=== PATIENT | male | born 1960 | race Caucasian/White ===

== ENCOUNTER 2017-12-23 09:30 | Emergency (ER) | payer OTHER ==
[2017-12-23 09:41] VITALS: TEMP 98.1
--- NOTE | 2017-12-23 10:36 | ED ---
General Adult HPI - General Source: patient, RN notes reviewed Mode of arrival: ambulatory Limitations: no limitations <Canelo Groves - Last Filed: 12/23/17 13:33> <Giovanny Anthony - Last Filed: 12/23/17 14:06> - General Chief complaint: Extremity Injury, Lower Stated complaint: rt leg injury Time Seen by Provider: 12/23/17 09:51 - History of Present Illness Initial comments: Patient 57-year-old male presented to the emergency room today with a chief complaint of an injury to the right ankle that occurred yesterday approximately 7 PM. Patient states that he was stepping down out of his truck when he missed second step and twisted his right foot and ankle underneath him. Patient states he has not been able to bear weight. He states he has pain with movements. He states he has been icing it all night. Patient denies any other injury or complaint. (Canelo Groves) - Related Data Home Medications Medication Instructions Recorded Confirmed Ibuprofen [Advil] 800 mg PO Q6HR PRN 12/23/17 12/23/17 Previous Rx's Medication Instructions Recorded Hydrocodone/Acetaminophen [[place] 1 each PO Q6HR PRN #12 tab 12/23/17 5-325] Allergies Allergy/AdvReac Type Severity Reaction Status Date / Time amoxicillin AdvReac Nausea & Verified 12/23/17 10:29 Vomiting & Diarrhea Review of Systems ROS Other: All systems not noted in ROS Statement are negative. <Canelo Groves - Last Filed: 12/23/17 13:33> ROS Other: All systems not noted in ROS Statement are negative. <Giovanny Anthony - Last Filed: 12/23/17 14:06> ROS Statement: Those systems with pertinent positive or pertinent negative responses have been documented in the HPI. Past Medical History Past Medical History: No Reported History Additional Past Medical History / Comment(s): "undiagnosed divirticulitis" in the past History of Any Multi-Drug Resistant Organisms: None Reported Past Surgical History: Hernia Repair Past Psychological History: No Psychological Hx Reported Smoking Status: Former smoker Past Alcohol Use History: Occasional Past Drug Use History: Marijuana <Canelo Groves - Last Filed: 12/23/17 13:33> General Exam Limitations: no limitations <Canelo Grovse - Last Filed: 12/23/17 13:33> <Lodge,Giovanny - Last Filed: 12/23/17 14:06> - General Exam Comments Initial Comments: General: The patient is awake and alert, in no distress, and does not appear acutely ill. Neck: The neck is supple, there is no tenderness or JVD. Musculoskeletal: The patient does have a normal appearance of her right ankle. Faint pedal pulses. Doppler is able to apple picker pedal pulses and posterior tibialis. Sensations are intact. Tender over the right ankle both lateral and medial malleolus. Mild tenderness to the fibular head. Neurological: A&O x 3. CN II-XII intact, There are no obvious motor or sensory deficits. Coordination appears grossly intact. Speech is normal. Skin: Skin is warm and dry and no rashes or lesions are noted. Psychiatric: Normal mood and affect. (Canelo Groves) Vital Signs 12/23/17 12/23/17 12/23/17 09:38 12:33 12:39 Temperature 98.1 F Pulse Rate 69 62 61 Respiratory 18 17 17 Rate Blood Pressure 153/100 139/89 142/96 O2 Sat by Pulse 98 100 100 Oximetry 12/23/17 12/23/17 12/23/17 12:44 12:50 12:55 Temperature Pulse Rate 64 100 76 Respiratory 17 72 H 17 Rate Blood Pressure 152/93 152/98 147/87 O2 Sat by Pulse 100 100 100 Oximetry 12/23/17 12/23/17 12/23/17 13:00 13:07 13:10 Temperature Pulse Rate 66 60 62 Respiratory 17 17 17 Rate Blood Pressure 140/87 144/90 142/90 O2 Sat by Pulse 100 100 100 Oximetry Procedures - Orthopedic Fracture Reduction Fracture #1 Consent Obtained: written consent Time Out Performed: Yes Fracture Reduction Location: tibia, fibula Analgesia: procedural sedation Technique: direct manipulation Post Reduction X-rays Demonstrate: acceptable reduction Post-Reduction Neuro Exam: intact Post-Reduction Vascular Exam: intact Splint Applied: Yes Patient Tolerated Procedure: well - Procedural Sedation Indications: fracture/dislocation reduction ASA Class: II Mallampati Airway Score: 2 Time of Last PO Intake: 00:00 (Midnight last night) Preparation: cashier host/hostess applied, pulse oximeter, capnometry used, supplemental O2 applied, suction/airway equipment at bedside, IV secured IV Propofol Dose (mgs): 90 Complications: none Patient Tolerated Procedure: well <Giovanny Anthony - Last Filed: 12/23/17 14:06> Medical Decision Making - Lab Data Result diagrams: 12/23/17 11:10 12/23/17 11:10 <Canelo Groves - Last Filed: 12/23/17 13:33> - Lab Data Result diagrams: 12/23/17 11:10 12/23/17 11:10 <Giovanny Anthony - Last Filed: 12/23/17 14:06> - Medical Decision Making X-ray did show a distal fibular fracture with ankle dislocation. Patient was conscious sedated here in the emergency room. Post reduction films show good reduction. Case was discussed with orthopedic doctor concrete boom pump operator Dr. Gregory who recommends following up in the office on Tuesday. Patient will be given crutches and stay nonweightbearing advised ice elevate. Patient did sign a opiate start talking form. (Canelo Groves) - Lab Data Lab Results 12/23/17 12/23/17 12/23/17 Range/Units 11:10 11:10 11:10 WBC 8.6 (3.8-10.6) k/uL RBC 5.58 (4.30-5.90) m/uL Hgb 17.5 (13.0-17.5) gm/dL Hct 52.3 (39.0-53.0) % MCV 93.8 (80.0-100.0) fL MCH 31.3 (25.0-35.0) pg MCHC 33.4 (31.0-37.0) g/dL RDW 12.9 (11.5-15.5) % Plt Count 357 (150-450) k/uL Neutrophils % 64 % Lymphocytes % 27 % Monocytes % 5 % Eosinophils % 1 % Basophils % 0 % Neutrophils # 5.5 (1.3-7.7) k/uL Lymphocytes # 2.4 (1.0-4.8) k/uL Monocytes # 0.5 (0-1.0) k/uL Eosinophils # 0.1 (0-0.7) k/uL Basophils # 0.0 (0-0.2) k/uL PT 10.2 (9.0-12.0) sec INR 1.0 (<1.2) APTT 22.7 (22.0-30.0) sec Sodium 139 (137-145) mmol/L Potassium 5.0 (3.5-5.1) mmol/L Chloride 104 (98-107) mmol/L Carbon Dioxide 25 (22-30) mmol/L Anion Gap 10 mmol/L BUN 17 (9-20) mg/dL Creatinine 0.90 (0.66-1.25) mg/dL Est GFR (CKD-EPI)AfAm >90 (>60 ml/min/1.73 sqM) Est GFR (CKD-EPI)NonAf >90 (>60 ml/min/1.73 sqM) Glucose 115 H (74-99) mg/dL Calcium 10.0 (8.4-10.2) mg/dL Disposition Is patient prescribed a controlled substance at d/c from ED?: Yes When asked, does pt state using other controlled substances?: No If prescribed controlled substance>3 days was MAPS reviewed?: Prescribed <3 Days If Rx opioid, was Start Talking consent form obtained?: Yes Time of Disposition: 13:35 <Canelo Groves - Last Filed: 12/23/17 13:33> <Giovanny Anthony - Last Filed: 12/23/17 14:06> Clinical Impression: Ankle fracture Disposition: HOME SELF-CARE Condition: Good Instructions: Ankle Fracture (ED) Additional Instructions: Please leave splint in place until follow-up with orthopedics on Tuesday as discussed. Please use crutches with nonweightbearing. Pain medication as prescribed. Please continue to ice elevate the affected areas 4 times a day for 20 minutes at a time. Please return to emergency room if the symptoms increase or worsen or for any other concerns. Prescriptions: Hydrocodone/Acetaminophen [[place] 5-325] 1 each PO Q6HR PRN #12 tab PRN Reason: Pain Referrals: Demarcus Medrano MD [Primary Care Provider] - 1-2 days Max Gregory MD [STAFF PHYSICIAN] - 1-2 days Addendum entered and electronically signed by Canelo Groves PA-C 12/23/17 13: 40: EKG performed that 1111: Shows normal sinus rhythm at 71 bpm. DE interval 152. QRS 88. QT/QTc is 406/441. No acute ST changes.
--- NOTE | 2017-12-23 10:38 | XR ---
EXAMINATION TYPE: XR ankle complete RT, XR tibia fibula RT, XR foot limited RT DATE OF EXAM: 12/23/2017 COMPARISON: NONE HISTORY: Pain TECHNIQUE: Frontal, lateral and oblique images of the right ankle are obtained. 2 views of the right foot are submitted as well as AP and lateral views of the right tibia and fibula. FINDINGS: Displaced and angulated fracture of the distal fibula with displacement of 11.5 mm. Suspect fracture anterior malleolus. Complete disruption of the ankle mortise with the distal tibia being di slocated ventrally. Small chip component noted adjacent to the talar dome may arise from the tibia or talus. IMPRESSION: 1. Complete disruption of the ankle mortise with ventral dislocation of the distal tibia relative to the talar dome. 2. Angulated and displaced distal fibular fracture. Suspect small chip fractures arising from the ant erior malleolus and possibly the dome of the talus.
[2017-12-23] MEDS ORDERED: DIAZEPAM 5 MG TAB PO STA (10:48)
[2017-12-23] MEDS ORDERED: HYDROcodone/APAP 5-325MG 1 EACH TAB PO STA (10:48)
[2017-12-23 11:31] LABS: Basophils % (A) 0 %; Eosinophils # (A) 0.1 k/uL (0-0.7); Eosinophils % (A) 1 %; HCT 52.3 % (39.0-53.0); HGB 17.5 gm/dL (13.0-17.5); Lymphocytes # (A) 2.4 k/uL (1.0-4.8); Lymphocytes % (A) 27 %; MCH 31.3 pg (25.0-35.0); MCHC 33.4 g/dL (31.0-37.0); MCV 93.8 fL (80.0-100.0); Mean Platelet Volume 6.6; Monocytes # (A) 0.5 k/uL (0-1.0); Monocytes % (A) 5 %; Neutrophils # (A) 5.5 k/uL (1.3-7.7); Neutrophils % (A) 64 %; Platelet Count 357 k/uL (150-450); RBC 5.58 m/uL (4.30-5.90); RDW 12.9 % (11.5-15.5); WBC 8.6 k/uL (3.8-10.6)
[2017-12-23 11:38] LABS: Partial Thromboplastin Time 22.7 sec (22.0-30.0); Prothrombin Time 10.2 sec (9.0-12.0)
[2017-12-23 11:42] LABS: Anion Gap 10 mmol/L; Blood Urea Nitrogen 17 mg/dL (9-20); Carbon Dioxide 25 mmol/L (22-30); Chloride 104 mmol/L (98-107); Glucose 115 mg/dL (74-99); Sodium 139 mmol/L (137-145)
[2017-12-23] MEDS: PROPOFOL 10 MG/ML 20 ML VIAL IV STA ×2 (12:22→12:50)
[2017-12-23] MEDS ORDERED: SODIUM CHLORIDE 0.9% 1,000 ML IV SCH (12:45)
--- NOTE | 2017-12-23 13:25 | XR ---
EXAMINATION TYPE: XR ankle limited RT DATE OF EXAM: 12/23/2017 COMPARISON: Earlier today HISTORY: 57-year-old male with pain, post reduction TECHNIQUE: 2 view FINDINGS: Interval improved alignment of the patient's oblique distal fibular fracture. Possible 1 cm bone frag ment projecting below the lateral malleolus versus external artifact. Attention on follow-up. Persist ent medial clear space widening. Overlying fiberglass cast. IMPRESSION: Unstable bimalleolar equivalent ankle fracture with interval reduction and improved alignment. Persis tent medial clear space widening compatible with disruption of the deltoid ligament. Either a 1 cm bone fragment versus external artifact projecting below the lateral malleolus. Attentio n on follow-up.
[2017-12-23 14:58] VITALS: BP 146/101; PULSE 64; RESP 18
--- NOTE | 2017-12-30 00:58 | CDI ---
Documentation Clarification OP Dear Canelo Groves/Giovanny Liu DO Please do addendum to ED report for Procedure Start and Stop time so that we can determine length of sedation for charging. Thank you, Sayda Bell/Devika Meza-[employer] Die Sinker Apprentice If you have any questions, please contact [employer] at [phone] [facility]
== END 2017-12-23 14:57 | disposition home or self-care (01) ==
LOC: EC 09:30
DX: S82.841A Displaced bimalleolar fracture of right lower leg, initial encounter for closed fracture (principal); Z88.0 Allergy status to penicillin; Z87.891 Personal history of nicotine dependence; X50.1XXA Overexertion from prolonged static or awkward postures, initial encounter; S82.831A Other fracture of upper and lower end of right fibula, initial encounter for closed fracture
CPT/HCPCS: 99284; 96360; 96361; 27752; 36415; 93005; 80048; 85025; 85610; 85730; 73590; 73600; 73610; 73620; J2704

== ENCOUNTER 2017-12-29 10:17 | Day surgery (SDC) | payer OTHER ==
[2017-12-28 12:21] VITALS: BMI 27.4
[~2017-12-29 10:17] MED LIST: ACETAMINOPHEN TAB 500 MG TAB PO ONE; DEXAMETHASONE SOD PHOSPHATE 10 MG/ML 1 ML VIAL IV ONE; LACTATED RINGERS 1,000 ML IV SCH; MIDAZOLAM 2 MG/2 ML VIAL IV PRN; ONDANSETRON 4 MG/2 ML VIAL IVP ONE; SCOPOLAMINE 1.5MG/72HR PATCH TRANSDERM ONE; ceFAZolin IN SWFI 2 GM/20 ML SYRINGE IVP ONE; fentaNYL (PF) 50 MCG/ML 2 ML AMP IV PRN
[2017-12-29] MEDS ORDERED: LIDOCAINE 1% 20 ML VIAL (10MG/ML) FOR IV START INTRADERMA ONE (11:07)
[2017-12-29] MEDS ORDERED: fentaNYL (PF) 50 MCG/ML 2 ML AMP ONE (11:54)
[2017-12-29] MEDS ORDERED: PHENYLEPHRINE-0.9% NACL SYG 1 MG/10 ML SYRINGE ONE (11:54)
[2017-12-29] MEDS ORDERED: LACTATED RINGERS 1,000 ML IV ONE (11:54)
[2017-12-29] MEDS ORDERED: PROPOFOL 10 MG/ML 20 ML VIAL IV ONE (11:54)
[2017-12-29] MEDS ORDERED: SUCCINYLCHOLINE CHLORIDE 100 MG/5 ML SYR IV ONE (11:54)
[2017-12-29] MEDS ORDERED: LIDOCAINE 1% INJ 10MG/ML (20 ML MDV) ONE (11:54)
[2017-12-29] MEDS ORDERED: ceFAZolin 1,000 MG in SODIUM CHLORIDE 0.9% 1,000 ML IRRIGATION ONE (12:26)
[2017-12-29] MEDS: MEPERIDINE 50 MG/ML SYRINGE IVP ONE ×2 (13:31→13:48)
[2017-12-29 13:37] VITALS: TEMP 97.4
[2017-12-29 13:39] VITALS: RESP 16
[2017-12-29] MEDS ORDERED: HYDROcodone/APAP 5-325MG 1 EACH TAB PO ONE (15:00)
[2017-12-29 15:02] VITALS: BP 135/79; PULSE 74
--- NOTE | 2017-12-29 15:10 | FL ---
Fluoroscopy HISTORY: Ankle fracture 39 seconds fluoroscopy time supplied to the referring clinician. 3 intraoperative C-arm images docum ent the procedure. See dictated report from orthopedic surgery.
--- NOTE | 2017-12-29 15:11 | XR ---
Limited right ankle HISTORY: Fracture 3 intraoperative C-arm images document the procedure.
--- NOTE | 2017-12-29 15:13 | P.ONQ ---
Anesthesiology Proc Note - PNB - Peripheral Nerve Block Performed Right Popliteal Single Procedure Start Time: 14:00 Procedure Stop Time: 14:10 Indication: Acute Post-Operative Pain Sedation Type: Awake Preparation: Sterile Prep Position: Supine Needle Types: Other (see comment) (pujunk) Needle Size: 50mm (2"), 100mm (4") Needle Gauge: 21 Technique: Ultrasound Injectate: Other (see comment) (bupivacaine 0.25 % 25 ml) Blood Aspirated: No Pain Paresthesia on Injection Noted: No Resistance on Injection: Normal Events: Uneventful and Well Tolerated
--- NOTE | 2017-12-29 18:39 | OP ---
OPERATIVE REPORT DATE OF PROCEDURE: 12/29/2017 PREOPERATIVE DIAGNOSIS: Right displaced lateral malleolus fracture with syndesmotic disruption. POSTOPERATIVE DIAGNOSIS: Right displaced lateral malleolus fracture with syndesmotic disruption. PROCEDURES: 1. Open reduction internal fixation, right lateral malleolus fracture. 2. Right ankle syndesmotic reduction and fixation. SURGEON: Max Gregory MD CDA TEACHER: Jim Florian PA-C ANESTHESIA: General endotracheal. ESTIMATED BLOOD LOSS: 25 mL. TOURNIQUET: 30 minutes at 250 mmHg. DRAINS: None. COMPLICATIONS: None apparent. DISPOSITION: Post-Anesthesia Care Unit. INDICATIONS: Guero is a pleasant 57-year-old male who injured his right ankle 5 to 7 days ago getting out of his truck. He initially presented to [facility]. He had a displaced lateral malleolus fracture with a syndesmotic disruption. The fracture was reduced by the emergency department and appropriately splinted and he was given followup in my office. I saw him in the office approximately 3 days ago. He only had a minimal amount of swelling. The fracture had been reduced very nicely by the emergency department. The injury films were reviewed and he did have a displaced lateral malleolus fracture with syndesmotic disruption. Recommendation was for open reduction internal fixation with possible syndesmotic fixation of his lateral malleolus fracture. The risks of the procedure were discussed with him in detail. These risks include but are not limited to risk of infection, nerve damage, bleeding, pain and a risk of deep vein thrombosis which could lead to fatal pulmonary embolism. Further risks include lack of healing of the fracture, hardware irritation which could necessitate removal of the hardware and deep infection. All of his questions with regards to the risks were answered to his satisfaction. Appropriate informed consent was obtained. DESCRIPTION OF THE PROCEDURE: The patient was identified in the preoperative holding area. Surgical site was marked by both the patient and myself. He was given 2 grams of Ancef IV for prophylactic purposes. He was then transported to the operative suite, where he was placed supine on the operating room table. General anesthetic was administered and dosed per the anesthesia department without apparent complication. A tourniquet was then placed high on the right upper thigh and well padded in preparation for surgery. A bump was placed under his right hip to aid in exposure of the lateral malleolus. The patient's right lower extremity was then prepped and draped in the usual sterile fashion. Standard surgical pause was undertaken to ensure that we were operating on the correct site and that appropriate preoperative antibiotics had been given. All staff in the room were in agreement and we proceeded. The distal fibula was outlined with a surgical pen. A planned 10 to 12 cm incision extending from the distal fibula proximally along the posterior third of the distal fibula was then marked with a surgical pen. The leg was then exsanguinated with an Esmarch dressing. The tourniquet was inflated to 250 mmHg. The incision was then made with a 15 blade scalpel. Dissection was carried down sharply to the lateral cortex of the fibula. Great care was taken to minimize the periosteal stripping. The fracture was readily identified. It was a very clean, short, oblique fracture. It was easily reduced with a reduction forcep. I then placed a 2.7 mm bicortical nonlocking screw perpendicular to the fracture from anterior to posterior. This was an interfragmentary compression screw. This screw had excellent purchase and reduced and compressed the fracture very nicely. I then placed a lateral neutralization plate. A Synthes 7-hole 1/3 tubular plate was chosen. Fluoroscopy was utilized to ensure that the length of the plate was appropriate. The plate was then placed onto the lateral fibula. Proximal to the fracture were three 3.5 mm bicortical nonlocking screws. The two distal screws were 4.0 mm cancellous bicortical screws. I then tested the syndesmosis. The syndesmosis widened with external rotation stress. I then made the decision to proceed with syndesmotic fixation. The ankle was then held in reduction with internal rotation. I then drilled all through the 2 cortices of the fibula and the 2 cortices of the tibia to place a 4.5 mm fully threaded screw. This was ea 52 mm screw. It caught all 4 cortices. It was placed with the syndesmosis reduced. I then stressed the ankle. The syndesmosis was stable. The medial clear space did not open. At this point in time, no further work was deemed necessary. The tourniquet was deflated. The wound was thoroughly irrigated with sterile saline solution with antibiotic added. The deep tissue was closed with 0 Vicryl interrupted suture to form a nice deep layer over the plate. The subcutaneous tissue was closed with 2-0 Vicryl interrupted suture and the skin was closed with stainless steel speedy. Sterile compressive dressing was then applied. The patient was then placed into a very well- padded short-leg posterior molded splint with side stirrups. All sponge and needle counts were deemed correct prior to closure. The patient tolerated the procedure without apparent complication. He was transferred to the recovery room in stable condition. ADRIANO / GAYLA: [id number] /
== END 2017-12-29 16:12 | disposition home or self-care (01) ==
LOC: OR 10:17
PROVIDERS: ATTEND Orthopaedic Surgery Sports Medicine
DX: S82.61XA Displaced fracture of lateral malleolus of right fibula, initial encounter for closed fracture (principal); W18.49XA Other slipping, tripping and stumbling without falling, initial encounter; Z87.891 Personal history of nicotine dependence; Z88.0 Allergy status to penicillin; Z79.891 Long term (current) use of opiate analgesic
CPT/HCPCS: 73600; 27792; C1713; J1100; J2175; J2405; J0690 ×2

== ENCOUNTER 2023-06-03 22:20 | Inpatient (IN) | payer OTHER ==
[2023-06-03] MEDS: SODIUM CHLORIDE 0.9% 1,000 ML IV STA (23:20)
[2023-06-03] MEDS: diphenhydrAMINE 50 MG/ML 1 ML VIAL IVP STA (23:21)
[2023-06-03] MEDS: METOCLOPRAMIDE 5 MG/ML 2 ML VIAL IVP STA (23:21)
[2023-06-03 23:45] LABS: ALT 18 U/L (4-49); AST 25 U/L (17-59); African American GFR (CKD) >90 (>60 ml/min/1.73 sqM); Alkaline Phosphatase 72 U/L (38-126); Anion Gap 13 mmol/L; Blood Urea Nitrogen 21 mg/dL (9-20); Calcium 9.6 mg/dL (8.4-10.2); Carbon Dioxide 21 mmol/L (22-30); Chloride 101 mmol/L (98-107); Glucose 172 mg/dL (74-99); Lipase 55 U/L (23-300); Non-African American GFR(CKD) >90 (>60 ml/min/1.73 sqM); Sodium 135 mmol/L (137-145); Total Protein 6.6 g/dL (6.3-8.2)
[2023-06-03 23:58] LABS: Basophils % (A) 0 %; Eosinophils % (A) 0 %; HCT 48.5 % (39.0-53.0); HGB 17.2 gm/dL (13.0-17.5); Lymphocytes # (A) 1.5 k/uL (1.0-4.8); Lymphocytes % (A) 13 %; MCH 32.7 pg (25.0-35.0); MCHC 35.4 g/dL (31.0-37.0); MCV 92.6 fL (80.0-100.0); Mean Platelet Volume 8.7; Monocytes # (A) 0.5 k/uL (0-1.0); Monocytes % (A) 4 %; Neutrophils # (A) 9.7 k/uL (1.3-7.7); Neutrophils % (A) 82 %; Platelet Count 455 k/uL (150-450); RBC 5.24 m/uL (4.30-5.90); RDW 12.8 % (11.5-15.5); WBC 11.8 k/uL (3.8-10.6)
--- NOTE | 2023-06-04 00:21 | CT ---
EXAM: CT Abdomen and Pelvis With Intravenous Contrast CLINICAL HISTORY: ITS.REASON CT Reason: abdominal pain TECHNIQUE: Axial computed tomography images of the abdomen and pelvis with intravenous contrast. CTDI is 15.3 mGy and DLP is 932 mGy-cm. This CT exam was performed using one or more of the following dose reduction techniques: automated exposure control, adjustment of the mA and/or kV according to patient size, and/or use of iterative reconstruction technique. COMPARISON: No relevant prior studies available. FINDINGS: Lung bases: Unremarkable. No mass. No consolidation. ABDOMEN: Liver: Unremarkable. No mass. Gallbladder and bile ducts: Unremarkable. No calcified stones. No ductal dilation. Pancreas: Unremarkable. No mass. No ductal dilation. Spleen: Unremarkable. No splenomegaly. Adrenals: Unremarkable. No mass. Kidneys and ureters: Unremarkable. No solid mass. No hydronephrosis. Stomach and bowel: There is a 6.8 x 2.8 cm mass within the distal sigmoid colon. Marked distention of the colon proximal to this mass. PELVIS: Appendix: No findings to suggest acute appendicitis. Bladder: Unremarkable. No mass. Reproductive: Unremarkable as visualized. ABDOMEN and PELVIS: Intraperitoneal space: Unremarkable. No free air. No significant fluid collection. Bones/joints: No acute fracture. No dislocation. Soft tissues: Unremarkable. Vasculature: Unremarkable. No abdominal aortic aneurysm. Lymph nodes: Unremarkable. No enlarged lymph nodes. IMPRESSION: 6.8 cm colonic mass consistent with colonic neoplasm.
--- NOTE | 2023-06-04 01:32 | ED ---
Abdominal Pain HPI - General Chief Complaint: Abdominal Pain Stated Complaint: Constipation Time Seen by Provider: 06/03/23 22:30 Source: patient, family Mode of arrival: ambulatory Limitations: no limitations - History of Present Illness Initial Comments: 62-year-old male presents to the emergency department for abdominal pain, nausea and vomiting. States that he has not had a bowel movement in 2 weeks. 1 week ago the patient went to [facility]. He was diagnosed with constipation and given an enema. He was also instructed to do enemas at home. States that he was unable to move his bowels and therefore returned for evalua tion yesterday. He had a CAT scan performed. Rectal disimpaction was attempted. Patient was sent home once again with an enema. States that he has been able to pass 2 very small round nima but no other stool. He began vomiting this morning and states he has been unable to hold down anything. Has not had anything to eat or drink in 2 days. He denies fevers. He has never had a colonoscopy. He denies urinary complaints to include dysuria, hematuria or difficulty voiding. No fevers. No other alleviating, precipitating or modifying factors - Related Data Previous Rx's Medication Instructions Recorded Hydrocodone/Acetaminophen [[place] 1 each PO Q6HR PRN #12 tab 12/23/17 5-325] Aspirin 325 mg PO BID #60 tab 12/29/17 Docusate [Colace] 100 mg PO BID #60 capsule 12/29/17 Allergies Allergy/AdvReac Type Severity Reaction Status Date / Time amoxicillin AdvReac Nausea & Verified 06/03/23 22:25 Vomiting & Diarrhea Review of Systems ROS Statement: Those systems with pertinent positive or pertinent negative responses have been documented in the HPI. ROS Other: All systems not noted in ROS Statement are negative. Past Medical History Past Medical History: Musculoskeletal Disorder, Osteoarthritis (OA) Additional Past Medical History / Comment(s): "undiagnosed diverticulitis" in the past, [place] Schlatter knee, fell & fx. right ankle last Tuesday, in soft cast per pt. History of Any Multi-Drug Resistant Organisms: None Reported Past Surgical History: Hernia Repair Past Anesthesia/Blood Transfusion Reactions: No Reported Reaction Past Psychological History: No Psychological Hx Reported Past Alcohol Use History: Occasional Past Drug Use History: Marijuana - Past Family History Mother Family Medical History: Cancer Additional Family Medical History / Comment(s): leukemia General Exam Limitations: no limitations General appearance: alert, in no apparent distress Head exam: Present: atraumatic, normocephalic, normal inspection Eye exam: Present: normal appearance, PERRL, EOMI. Absent: scleral icterus, conjunctival injection, periorbital swelling ENT exam: Present: normal exam, mucous membranes moist Neck exam: Present: normal inspection. Absent: tenderness, meningismus, lymphadenopathy Respiratory exam: Present: normal lung sounds bilaterally. Absent: respiratory distress, wheezes, rales, rhonchi, stridor Cardiovascular Exam: Present: regular rate, normal rhythm, normal heart sounds. Absent: systolic murmur, diastolic murmur, rubs, gallop, clicks GI/Abdominal exam: Present: soft, distended, tenderness (Generalized), normal bowel sounds. Absent: guarding, rebound, rigid Extremities exam: Present: normal inspection, full ROM, normal capillary refill. Absent: tenderness, pedal edema, joint swelling, calf tenderness Back exam: Present: normal inspection Neurological exam: Present: alert, oriented X3, CN II-XII intact Psychiatric exam: Present: normal affect, normal mood Skin exam: Present: warm, dry, intact, normal color. Absent: rash Course Vital Signs 06/03/23 06/04/23 06/04/23 22:21 01:25 03:47 Temperature 98.7 F Pulse Rate 112 H 100 98 Respiratory 18 18 18 Rate Blood Pressure 155/109 156/99 152/97 O2 Sat by Pulse 97 95 95 Oximetry Medical Decision Making - Medical Decision Making Was pt. sent in by a medical professional or institution (, PA, CROSS TIE MAKER, urgent care, hospital, or halfway...) When possible be specific @ -No Did you speak to anyone other than the patient for history (EMS, parent, family, police, friend...)? What history was obtained from this source @ -I spoke with the patient's friend in regards to his symptoms Did you review nursing and triage notes (agree or disagree)? Why? @ -I reviewed and agree with nursing and triage notes Were old charts reviewed (outside hosp., previous admission, EMS record, old EKG, old radiological studies, urgent care reports/EKG's, halfway records)? Report findings @ -No old charts were reviewed Differential Diagnosis (chest pain, altered mental status, abdominal pain women, abdominal pain men, vaginal bleeding, weakness, fever, dyspnea, syncope, headache, dizziness, GI bleed, back pain, seizure, CVA, palpatations, mental health, musculoskeletal)? @ -Differential Abdominal Pain Men: Appendicitis, cholecystitis, diverticulosis, ischemic bowel, pancreatitis, hepatitis, UTI, gastroenteritis, AAA, incarcerated hernia, bowel obstruction, constipation, inflammatory bowel, hepatitis, peptic ulcer disease, splenic infarction, perforated viscus, testicular torsion, this is not meant to be an all-inclusive list EKG interpreted by me (3pts min.). @ -Not done X-rays interpreted by me (1pt min.). @ -None done CT interpreted by me (1pt min.). @ -Yes and demonstrates large sigmoid mass U/S interpreted by me (1pt. min.). @ -None done What testing was considered but not performed or refused? (CT, X-rays, U/S, labs)? Why? @ -None What meds were considered but not given or refused? Why? @ -None Did you discuss the management of the patient with other professionals (professionals i.e. , PA, CROSS TIE MAKER, lab, RT, psych nurse, secondary social studies teacher, botany teacher, teacher, aoc director combat operations officer, pillowcase maker)? Give summary @ -Spoke with Dr. Noe. Requested medicine admit with surgery to consult Was smoking cessation discussed for >3mins.? @ -No Was critical care preformed (if so, how long)? @ -No Were there social determinants of health that impacted care today? How? (Homelessness, low income, unemployed, alcoholism, drug addiction, transportation, low edu. Level, literacy, decrease access to med. care, prison, rehab)? @ -No Was there de-escalation of care discussed even if they declined (Discuss DNR or withdrawal of care, Hospice)? DNR status @ -No What co-morbidities impacted this encounter? (DM, HTN, Smoking, COPD, CAD, Cancer, CVA, ARF, Chemo, Hep., AIDS, mental health diagnosis, sleep apnea, morbid obesity)? @ -None Was patient admitted / discharged? Hospital course, mention meds given and route, prescriptions, significant lab abnormalities, going to OR and other pertinent info. @ -Admitted. Upon arrival patient was placed into room 21. Thorough history and physical exam was performed. Patient is vomiting fecal material. Patient did have a CT done yesterday however I did recommend repeating this as he has had new onset of vomiting. Patient was agreeable to the scan. IV was established. Laboratory studies are conducted. Patient sent for CT which demonstrates a large sigmoid mass with obstruction. Results are discussed with the patient. At this time due to intractable nausea vomiting of fecal material I did place an NG tube. We did receive approximately 100 cc of brown stool in t he canister. Spoke with Dr. Noe who recommended medicine admission with surgery to consult. Spoke with Dr. Cabral who agreed to admit the patient. Patient remains n.p.o. and was taken to the floor in stable condition Undiagnosed new problem with uncertain prognosis? @ -Yes Drug Therapy requiring intensive monitoring for toxicity (Heparin, Nitro, Insulin, Cardizem)? @ -No Were any procedures done? @ -NG tube placement Diagnosis/symptom? @ -Intractable nausea and vomiting, acute abdominal pain, constipation, sigmoid mass with obstruction Acute, or Chronic, or Acute on Chronic? @ -Acute Uncomplicated (without systemic symptoms) or Complicated (systemic symptoms)? @ -Complicated Side effects of treatment? @ -No Exacerbation, Progression, or Severe Exacerbation? @ -No Poses a threat to life or bodily function? How? (Chest pain, USA, VA, pneumonia, PE, COPD, DKA, ARF, appy, cholecystitis, CVA, Diverticulitis, Homicidal, Suicidal, threat to staff... and all critical care pts) @ -Yes this condition could be life-threatening - Lab Data Result diagrams: 06/03/23 23:10 06/03/23 23:10 Lab Results 06/03/23 06/03/23 06/03/23 Range/Units 23:10 23:10 23:10 WBC 11.8 H (3.8-10.6) k/uL RBC 5.24 (4.30-5.90) m/uL Hgb 17.2 (13.0-17.5) gm/dL Hct 48.5 (39.0-53.0) % MCV 92.6 (80.0-100.0) fL MCH 32.7 (25.0-35.0) pg MCHC 35.4 (31.0-37.0) g/dL RDW 12.8 (11.5-15.5) % Plt Count 455 H (150-450) k/uL MPV 8.7 Neutrophils % 82 % Lymphocytes % 13 % Monocytes % 4 % Eosinophils % 0 % Basophils % 0 % Neutrophils # 9.7 H (1.3-7.7) k/uL Lymphocytes # 1.5 (1.0-4.8) k/uL Monocytes # 0.5 (0-1.0) k/uL Eosinophils # 0.0 (0-0.7) k/uL Basophils # 0.0 (0-0.2) k/uL Sodium 135 L (137-145) mmol/L Potassium 4.0 (3.5-5.1) mmol/L Chloride 101 (98-107) mmol/L Carbon Dioxide 21 L (22-30) mmol/L Anion Gap 13 mmol/L BUN 21 H (9-20) mg/dL Creatinine 0.86 (0.66-1.25) mg/dL Est GFR (CKD-EPI)AfAm >90 (>60 ml/min/1.73 sqM) Est GFR (CKD-EPI)NonAf >90 (>60 ml/min/1.73 sqM) Glucose 172 H (74-99) mg/dL Lactic Ac Sepsis Rflx Plasma Lactic Acid Dima 4.3 H* (0.7-2.0) mmol/L Calcium 9.6 (8.4-10.2) mg/dL Total Bilirubin 1.0 (0.2-1.3) mg/dL AST 25 (17-59) U/L ALT 18 (4-49) U/L Alkaline Phosphatase 72 (38-126) U/L Total Protein 6.6 (6.3-8.2) g/dL Albumin 4.0 (3.5-5.0) g/dL Lipase 55 (23-300) U/L 06/04/23 Range/Units 00:06 WBC (3.8-10.6) k/uL RBC (4.30-5.90) m/uL Hgb (13.0-17.5) gm/dL Hct (39.0-53.0) % MCV (80.0-100.0) fL MCH (25.0-35.0) pg MCHC (31.0-37.0) g/dL RDW (11.5-15.5) % Plt Count (150-450) k/uL MPV Neutrophils % % Lymphocytes % % Monocytes % % Eosinophils % % Basophils % % Neutrophils # (1.3-7.7) k/uL Lymphocytes # (1.0-4.8) k/uL Monocytes # (0-1.0) k/uL Eosinophils # (0-0.7) k/uL Basophils # (0-0.2) k/uL Sodium (137-145) mmol/L Potassium (3.5-5.1) mmol/L Chloride (98-107) mmol/L Carbon Dioxide (22-30) mmol/L Anion Gap mmol/L BUN (9-20) mg/dL Creatinine (0.66-1.25) mg/dL Est GFR (CKD-EPI)AfAm (>60 ml/min/1.73 sqM) Est GFR (CKD-EPI)NonAf (>60 ml/min/1.73 sqM) Glucose (74-99) mg/dL Lactic Ac Sepsis Rflx Y Plasma Lactic Acid Dima (0.7-2.0) mmol/L Calcium (8.4-10.2) mg/dL Total Bilirubin (0.2-1.3) mg/dL AST (17-59) U/L ALT (4-49) U/L Alkaline Phosphatase (38-126) U/L Total Protein (6.3-8.2) g/dL Albumin (3.5-5.0) g/dL Lipase (23-300) U/L Disposition Clinical Impression: Vomiting feces, Colonic mass, Large bowel obstruction, Tachycardia, Lactic acidosis Disposition: ADMITTED IP TO THIS [facility] Condition: Serious Is patient prescribed a controlled substance at d/c from ED?: No Time of Disposition: 01:31 Decision to Admit Reason: Admit from EC Decision Date: 06/04/23 Decision Time: 01:32
[2023-06-04] MEDS ORDERED: NALOXONE 0.4 MG/ML 1 ML VIAL IV PRN (01:38)
[2023-06-04] MEDS: LIDOCAINE 2% URO-JET JELLY 5 ML KIT URETHRAL ONE (01:46)
[2023-06-04] MEDS: SODIUM CHLORIDE 0.9% 1,000 ML IV SCH (01:46)
[2023-06-04] MEDS: LORazepam 2 MG/ML INJ IV STA (01:47)
--- NOTE | 2023-06-04 05:10 | XR ---
EXAM: XR Chest, 1 View CLINICAL HISTORY: ITS.REASON XR Reason: NG tube placement TECHNIQUE: Frontal view of the chest. COMPARISON: No relevant prior studies available. FINDINGS: Lungs: No effusions. No infiltrates. Pleural space: Unremarkable. No pneumothorax. Heart: Unremarkable. No cardiomegaly. Mediastinum: Unremarkable. Normal mediastinal contour. Bones/joints: Unremarkable. No acute fracture Esophageal catheter is present with its tip below the left hemidiaphragm.. IMPRESSION: No acute pulmonary pathology.
[2023-06-04] MEDS: ONDANSETRON 4 MG/2 ML VIAL IVP PRN (05:34)
--- NOTE | 2023-06-04 06:29 | P.HPIM ---
History of Present Illness H&P Date: 06/04/23 Chief Complaint: Abdominal pain 62-year-old male with no significant past medical history is coming in for evaluation of 2-week history of recurrent nausea vomiting and constipation. He has multiple visits to different facilities over the past couple weeks was diagnosed with constipation and was given enemas, however without much improvement few days later he went back to [facility] and had a CAT scan done and was told that he has fecal impaction and was sent home again with enema. Yesterday he started having worsening nausea vomiting brownish in color with very foul smell was unable t to keep down anything he had decreased p.o. intake for the past 1 to 2 days and decided to come in for evaluation CT scan of the abdomen done in the ED showed large sigmoid mass blood work reflected lactic acidosis Patient denies any history of abdominal surgery except for hernia repair. Patient never had a colonoscopy otherwise he denies any fevers or chills denies any weight loss denies any GI bleeding. He denies any urinary changes Patient denies tobacco smoking or heavy alcohol. He admits to occasional marijuana review of systems Pertinent positives as noted in HPI. All other systems were reviewed and are negative on exam Constitutional: Patient very uncomfortable recurrent retching NG tube in place Eyes: Anicteric sclerae, moist conjunctiva, Pupils equal round reactive to light ENMT: NC/AT Oropharynx clear, no erythema, or exudates Neck: Supple, no masses, or JVD No carotid bruits No thyromegaly Lungs: Clear to auscultation Clear to percussion Normal respiratory effort, no accessory muscle use Cardiovascular: Heart regular in rate and rhythm, No murmurs, gallops, or rubs No peripheral edema Abdominal: Soft Discomfort to deep palpation over the lower abdomen, no guarding, rebound or rigidity Abdomen moving with respiration Normoactive bowel sounds No hepatomegaly, No splenomegaly No palpable mass No abdominal wall hernia noted Extremities: No digital cyanosis No clubbing Pedal pulses intact and symmetrical Radial pulses intact and symmetrical No calf tenderness Psychiatric: Alert and oriented to person, place and time Appropriate affect fair judgement Neuro Muscles Strength 5/5 in all 4 extremities Sensation to light touch grossly present throughout Cranial nerves II-XII grossly intact Past Medical History Past Medical History: Musculoskeletal Disorder, Osteoarthritis (OA) Additional Past Medical History / Comment(s): "undiagnosed diverticulitis" in the past, [place] Schlatter knee, fell & fx. right ankle last Tuesday, in soft cast per pt. History of Any Multi-Drug Resistant Organisms: None Reported Past Surgical History: Hernia Repair Additional Past Surgical History / Comment(s): Patient had ankle fracture repaired by Dr. Gregory, several pins remain Past Anesthesia/Blood Transfusion Reactions: No Reported Reaction Past Psychological History: No Psychological Hx Reported Past Alcohol Use History: Occasional Past Drug Use History: Marijuana - Past Family History Mother Family Medical History: Cancer Additional Family Medical History / Comment(s): leukemia Medications and Allergies Home Medications Medication Instructions Recorded Confirmed Type Hydrocodone/Acetaminophen [[place] 1 each PO Q6HR PRN #12 tab 12/23/17 12/29/17 Rx 5-325] Aspirin 325 mg PO BID #60 tab 12/29/17 Rx Docusate [Colace] 100 mg PO BID #60 capsule 12/29/17 Rx Allergies Allergy/AdvReac Type Severity Reaction Status Date / Time amoxicillin AdvReac Nausea & Verified 06/03/23 22:25 Vomiting & Diarrhea Physical Exam Vitals: Vital Signs Temp Pulse Pulse Resp BP BP Pulse Ox 06/04/23 04:53 100 18 06/04/23 04:14 97.6 F 100 18 154/85 95 06/04/23 03:47 98 18 152/97 95 06/04/23 01:25 100 18 156/99 95 06/03/23 22:21 98.7 F 112 H 18 155/109 97 Intake and Output 06/03/23 06/03/23 06/04/23 14:59 22:59 06:59 Output Total 0 Balance 0 Output: Gastric Drainage 0 Urine 0 Stool 0 Other: Voiding Method Toilet Urinal # Bowel Movements 0 # Emeses 0 Weight 70.76 kg 70.76 kg Results CBC & Chem 7: 06/03/23 23:10 06/03/23 23:10 Labs: Abnormal Lab Results - Last 24 Hours (Table) 06/03/23 06/03/23 06/03/23 Range/Units 23:10 23:10 23:10 WBC 11.8 H (3.8-10.6) k/uL Plt Count 455 H (150-450) k/uL Neutrophils # 9.7 H (1.3-7.7) k/uL Sodium 135 L (137-145) mmol/L Carbon Dioxide 21 L (22-30) mmol/L BUN 21 H (9-20) mg/dL Glucose 172 H (74-99) mg/dL Plasma Lactic Acid Dima 4.3 H* (0.7-2.0) mmol/L Thrombosis Risk Factor Assmnt - Choose All That Apply Any of the Below Risk Factors Present?: Yes Each Factor Represents 1 point: Obesity (BMI >25) Other Risk Factors: Yes Each Risk Factor Represents 2 Points: Age 61-74 years Thrombosis Risk Factor Assessment Total Risk Factor Score: 3 Thrombosis Risk Factor Assessment Level: Moderate Risk Assessment and Plan Assessment: 62-year-old male no significant past medical history never had colonoscopy comi ng in due to 2-week history of constipation and 2-day history of nausea vomiting with poor p.o. intake CT scan of the abdomen showed large sigmoid mass I discussed case with ED doctor and accepted the admission for bowel obstruction secondary to sigmoid mass with anticipated length of stay more than 2 midnights Bowel obstruction secondary to large sigmoid mass rule out malignancy N.p.o. NG tube to wall low intermittent suction Symptomatic control with Zofran 4 mg IV push every 8 hours Reglan 5 mg IV push every 6 hours as needed Coffee-ground vomiting noted, however hemoglobin unremarkable 17.2 IV push 80 mg of Protonix once then continue with Protonix IV push 40 mg daily Monitor hemoglobin level General surgery consultation CT scan of the abdomen showed large sigmoid mass 6.8 cm and bowel obstruction Pain control with morphine as needed Renal function unremarkable sodium 135 potassium 4 BUN 21 creatinine 0.86 reflect slight degree of dehydration Continue with IV fluid hydration with normal saline with 30 cc/h patient received 1 L bolus in the ED Lactic acidosis resolved 4.3 then 1.3 Liver enzymes unremarkable Full code DVT prophylaxis mechanical until GI bleed is ruled out
[2023-06-04] MEDS: PANTOPRAZOLE 40 MG/10 ML VIAL IVP SCH (08:24)
[2023-06-04] MEDS: MORPHINE SULFATE 4 MG/ML SYRINGE IV PRN (08:28)
--- NOTE | 2023-06-04 08:56 | XR ---
Single view abdomen HISTORY: Tube placement. COMPARISON: None TECHNIQUE: Single AP upright portable view of the abdomen was obtained. FINDINGS: There is an NG tube with a single loop within the stomach. Colon is moderately diffusely enlarged. There is no small bowel obstruction. The lung bases are clear. There is no free air beneath the diaphragm. IMPRESSION: There is a small loop in the distal NG tube and the NG tube including the loop is within the stomach.
[2023-06-04] MEDS: PANTOPRAZOLE 40 MG/10 ML VIAL IVP ONE ×2 (10:00→10:11)
--- NOTE | 2023-06-04 10:04 | P.GSCN ---
History of Present Illness Consult date: 06/04/23 Reason for Consult: Colon obstruction Requesting physician: Hansa Tarango History of present illness: Progressive abdominal pain and cramps over the last two months. Decreased ability to have BM. No prior colonoscopy. CT shows obstructed colon with sigmoid mass and intact ileocecal valve demonstrated by lack of small bowel distention. Review of Systems - Constitutional Denies weight loss - EENT Eyes: denies blurred vision (needs glasses) Ears: deny: decreased hearing - Cardiovascular Denies chest pain, Denies irregular heart beat, Denies rapid heart beat - Respiratory Denies cough, Denies dyspnea - Gastrointestinal Reports abdominal pain, Reports change in bowel habits - Genitourinary Denies hematuria - Musculoskeletal Denies fractures - Integumentary Denies wounds - Neurological Denies seizures - Psychiatric Denies depression - Hematologic/Lymphatic Denies easy bleeding Past Medical History Past Medical History: Musculoskeletal Disorder, Osteoarthritis (OA) Additional Past Medical History / Comment(s): "undiagnosed diverticulitis" in the past, [place] Schlatter knee, fell & fx. right ankle last Tuesday, in soft cast per pt. History of Any Multi-Drug Resistant Organisms: None Reported Past Surgical History: Hernia Repair Additional Past Surgical History / Comment(s): Patient had ankle fracture repaired by Dr. Gregory, several pins remain Past Anesthesia/Blood Transfusion Reactions: No Reported Reaction Past Psychological History: No Psychological Hx Reported Past Alcohol Use History: Occasional Past Drug Use History: Marijuana - Past Family History Mother Family Medical History: Cancer Additional Family Medical History / Comment(s): leukemia Medications and Allergies Home Medications Medication Instructions Recorded Confirmed Type Hydrocodone/Acetaminophen [[place] 1 each PO Q6HR PRN #12 tab 12/23/17 12/29/17 Rx 5-325] Aspirin 325 mg PO BID #60 tab 12/29/17 Rx Docusate [Colace] 100 mg PO BID #60 capsule 12/29/17 Rx Allergies Allergy/AdvReac Type Severity Reaction Status Date / Time amoxicillin AdvReac Nausea & Verified 06/03/23 22:25 Vomiting & Diarrhea Surgical - Exam Vital Signs Temp Pulse Resp BP Pulse Ox 98.7 F 112 H 18 155/109 97 06/03/23 22:21 06/03/23 22:21 06/03/23 22:21 06/03/23 22:21 06/03/23 22:21 Patient Seen Date: 06/04/23 Patient Seen Time: 09:30 - General moderate distress - Eyes no icteric - Respiratory normal respiratory effort - Abdomen Abdomen: tender, distended - Neurologic other (conversant and alert) - Psychiatric speech is normal Results - Labs 06/03/23 23:10 06/03/23 23:10 Abnormal Lab Results - Last 24 Hours (Table) 06/03/23 06/03/23 06/03/23 Range/Units 23:10 23:10 23:10 WBC 11.8 H (3.8-10.6) k/uL Plt Count 455 H (150-450) k/uL Neutrophils # 9.7 H (1.3-7.7) k/uL Sodium 135 L (137-145) mmol/L Carbon Dioxide 21 L (22-30) mmol/L BUN 21 H (9-20) mg/dL Glucose 172 H (74-99) mg/dL Plasma Lactic Acid Dima 4.3 H* (0.7-2.0) mmol/L Diabetes panel 06/03/23 Range/Units 23:10 Sodium 135 L (137-145) mmol/L Potassium 4.0 (3.5-5.1) mmol/L Chloride 101 (98-107) mmol/L Carbon Dioxide 21 L (22-30) mmol/L BUN 21 H (9-20) mg/dL Creatinine 0.86 (0.66-1.25) mg/dL Glucose 172 H (74-99) mg/dL Calcium 9.6 (8.4-10.2) mg/dL AST 25 (17-59) U/L ALT 18 (4-49) U/L Alkaline Phosphatase 72 (38-126) U/L Total Protein 6.6 (6.3-8.2) g/dL Albumin 4.0 (3.5-5.0) g/dL Calcium panel 06/03/23 Range/Units 23:10 Calcium 9.6 (8.4-10.2) mg/dL Albumin 4.0 (3.5-5.0) g/dL Pituitary panel 06/03/23 Range/Units 23:10 Sodium 135 L (137-145) mmol/L Potassium 4.0 (3.5-5.1) mmol/L Chloride 101 (98-107) mmol/L Carbon Dioxide 21 L (22-30) mmol/L BUN 21 H (9-20) mg/dL Creatinine 0.86 (0.66-1.25) mg/dL Glucose 172 H (74-99) mg/dL Calcium 9.6 (8.4-10.2) mg/dL Adrenal panel 06/03/23 Range/Units 23:10 Sodium 135 L (137-145) mmol/L Potassium 4.0 (3.5-5.1) mmol/L Chloride 101 (98-107) mmol/L Carbon Dioxide 21 L (22-30) mmol/L BUN 21 H (9-20) mg/dL Creatinine 0.86 (0.66-1.25) mg/dL Glucose 172 H (74-99) mg/dL Calcium 9.6 (8.4-10.2) mg/dL Total Bilirubin 1.0 (0.2-1.3) mg/dL AST 25 (17-59) U/L ALT 18 (4-49) U/L Alkaline Phosphatase 72 (38-126) U/L Total Protein 6.6 (6.3-8.2) g/dL Albumin 4.0 (3.5-5.0) g/dL Assessment and Plan Assessment: Closed loop colon obstruction with intact ileocecal valve and sigmoid mass. Reviewed staged surgery with todays op to decompress colon then definitive op (o ne stage sigmoid resection, takedown colostomy) in 4 to 6 weeks. Patient understands and questions answered. (1) Colonic mass Narrative/Plan: Decompress colon obstruction today then outpatient colon exam and one stage colon resection with takedown colostomy. Current Visit: Yes Status: Acute Code(s): K63.89 - OTHER SPECIFIED DISEASES OF INTESTINE SNOMED Code(s): 708767967 Time with Patient: Greater than 30
[2023-06-04] MEDS: metroNIDAZOLE-NS PMX 500 MG in SALINE 1 100ML.BAG IVPB SCH (10:11)
[2023-06-04] MEDS: CEFEPIME 2 GM in SODIUM CHLORIDE 0.9% 100 ML IVPB SCH (10:17)
[2023-06-04] MEDS: SODIUM CHLORIDE 0.9% 1,000 ML IV ONE ×2 (10:55→11:05)
[2023-06-04] MEDS: ONDANSETRON 4 MG/2 ML VIAL IVP ONE (11:02)
[2023-06-04] MEDS: DEXAMETHASONE SOD PHOSPHATE 4 MG/ML 1 ML VIAL IVP ONE (11:02)
[2023-06-04] MEDS ORDERED: LIDOCAINE 1% INJ 10MG/ML (20 ML MDV) ONE (11:05)
[2023-06-04] MEDS ORDERED: NEOSTIGMINE 1 MG/ML 10 ML VIAL ONE (11:05)
[2023-06-04] MEDS ORDERED: PHENYLEPHRINE 10 MG/ML VIAL ONE (11:05)
[2023-06-04] MEDS ORDERED: PROPOFOL 10 MG/ML 20 ML VIAL IV ONE (11:05)
[2023-06-04] MEDS ORDERED: MIDAZOLAM 2 MG/2 ML VIAL ONE (11:05)
[2023-06-04] MEDS ORDERED: SUCCINYLCHOLINE CHLORIDE 200 MG/10 ML VIAL IV ONE (11:05)
[2023-06-04] MEDS ORDERED: ROCURONIUM 10 MG/ML (5 ML VIAL) IV ONE (11:05)
[2023-06-04] MEDS ORDERED: GLYCOPYRROLATE 0.2 MG/ML 2 ML VIAL ONE (11:05)
[2023-06-04] MEDS ORDERED: fentaNYL (PF) 50 MCG/ML 2 ML AMP ONE (11:05)
[2023-06-04] MEDS: BUPIVACAINE (PF) 0.5% 30 ML VIAL SQ ONE (11:48)
[2023-06-04] MEDS: LIDOCAINE 1% INJ 10MG/ML (20 ML MDV) SQ ONE (11:48)
[2023-06-04] MEDS: LACTATED RINGERS 1,000 ML IV ONE ×2 (12:00→13:33)
[2023-06-04] MEDS: LABETALOL SYRINGE 5 MG/ML (4 ML SYR) IVP ONE ×2 (14:25→14:51)
--- NOTE | 2023-06-04 14:30 | P.PN ---
Subjective Progress Note Date: 06/04/23 Patient is a 62-year-old male with no significant past medical history who presented to the hospital with a 2-week history of constipation, nausea, and vomiting. Patient has been to different ERs over the last several weeks and was diagnosed with constipatiom.initially he was given enemas without much improvement. He then went to [facility] and had a CT done which he was told showed fecal impaction and he was sent home with enema. On arrival to our ER here he was tachycardic and hypertensive. Initial laboratory analysis was remarkable for white blood cell count 11.8, platelets 455, sodium 135, and lactic acid of 4.3. 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 He was admitted for bowel obstruction due to large sigmoid mass. General surgery was consulted. They saw the patient on the morning of 06/04 and recommended a decompressive colostomy. Patient seen and examined at bedside. He reports that he has continued to vomit around his NG tube. He continues to have some abdominal pain which is treated with morphine. He has not had any bowel movement since admission. Vital signs reviewed General: Nontoxic, no distress, appears at stated age Cardiovascular: S1S2 reg, no murmur Lungs: CTA bilateral, no rhonchi, no rales, no accessory muscle use Abdominal: Soft, tender to palpation diffusely, no guarding Ext: No gross muscle atrophy, no edema b/l lower extremities, no contractures Neuro: CN II-XI grossly intact, no focal neuro deficits Psych: Alert, oriented, appropriate affect Assessment/Plan: Large bowel obstruction with sigmoid mass -NG tube was not functioning and initial plan this morning was to replace NG tube. Patient was then seen by surgery who recommended decompressive colostomy with primary staged procedure with sigmoid colonic mass resection and colostomy takedown in 4 to 6 weeks. -Continue with cefepime 2 g IV every 12 hours, metronidazole 500 mg IV every 8 hours day #1 -Morphine 4 mg IV every 4 hours. Leukocytosis with thrombocytosis -Suspect reactive -Repeat CBC in a.m. Lactic acidosis, resolved Imaging: None new Data Review: None new DVT prophylaxis: SCDs Anticipated discharge date: Pending Clinical Course Anticipated discharge place: Pending Clinical Course This dictation was prepared using [employer] voice recognition software. Though every attempt is made to correct errors during dictation some may still exist. Objective - Vital Signs Vital signs: Vital Signs Temp 98.5 F 06/04/23 14:07 Pulse 99 06/04/23 14:22 Resp 18 06/04/23 14:22 BP 203/108 06/04/23 14:22 Pulse Ox 99 06/04/23 14:22 FiO2 Intake & Output 06/03/23 06/04/23 06/04/23 18:59 06:59 18:59 Intake Total 1950 Output Total 0 100 Balance 0 1850 Weight 70.76 kg 70.76 kg Intake: IV 1950 Output: Gastric Drainage 0 Urine 0 Stool 0 0 Estimated Blood Loss 100 Other: Voiding Method Toilet Toilet Urinal Urinal # Bowel Movements 0 # Emeses 0 - Labs CBC & Chem 7: 06/03/23 23:10 06/03/23 23:10 Labs: Abnormal Lab Results - Last 24 Hours (Table) 06/03/23 06/03/23 06/03/23 Range/Units 23:10 23:10 23:10 WBC 11.8 H (3.8-10.6) k/uL Plt Count 455 H (150-450) k/uL Neutrophils # 9.7 H (1.3-7.7) k/uL Sodium 135 L (137-145) mmol/L Carbon Dioxide 21 L (22-30) mmol/L BUN 21 H (9-20) mg/dL Glucose 172 H (74-99) mg/dL Plasma Lactic Acid Dima 4.3 H* (0.7-2.0) mmol/L
[2023-06-04] MEDS: HYDROmorphone 0.5 MG/0.5 ML SYRINGE IVP ONE ×3 (14:35→14:57)
--- NOTE | 2023-06-04 14:48 | P.OP ---
Date of Procedure: 06/04/23 Preoperative Diagnosis: Colon obstruction secondary to sigmoid colon mass. Postoperative Diagnosis: same Procedure(s) Performed: Laparotomy with creation transverse end colostomy and transverse colon mucus fistula Anesthesia: STEVEA Surgeon: Kaz Loving Estimated Blood Loss (ml): 90 Pathology: none sent Condition: stable Disposition: floor Indications for Procedure: The patient was admitted with pain due to a colon obstruction due to a sigmoid colon mass. I saw the patient in consultation, did an exam, and reviewed the CT. The patient has a closed loop colon obstruction due to the sigmoid mass and a competent ileocecal valve. The colon is distended and he is at high risk of a perforation. Urgent decompression is recommended. The nature of the operation, to decompress the colon, was discussed including the need for a temporary stoma. He understands that definitive operation for the sigmoid mass will be in the future when the colon decompresses. Consent was provided. Operative Findings: Markedly distended colon, no palpable liver or peritoneal implants. Description of Procedure: After the patient was given an adequate general endotracheal anesthetic, he was prepped and draped in a sterile fashion. The initial plan was to do a decompressive cecostomy. The cecum was not fully in the RLQ on the CT so a transverse muscle splitting incision was done at the level of the umbilicus. The colon could not be adequately reached through this incision so I closed the abdominal wall with 0 PDS and converted to a midline laparotomy. The omentum was elevated and the transverse colon was quite distended. It was not as redundant as might be expected. The omentum was taken off the transverse colon in the direction of the splenic flexure and toward the hepatic flexure. The incision was progressively enlarged to get adequate exposure. The colon was distended but not redundant, in fact the colon seemed foreshortened, and it would not easily reach the abdominal wall for a loop colostomy. I ended up mobilizing the hepatic flexure and right colon to get adequate length to reach the abdominal wall. The mid transverse colon was divided with a stapler. Aperatures for the stoma and mucus fistula were made in the RUQ and LUQ. The colon was too thickened and bulky for a loop stoma. The divided ends of the colon were brought through the abdominal wall. The abdomen was closed with a running #1 PDS. The skin was closed with a deep dermal interrupted 3-0 Vicryl and a running 4-0 Monocryl. Skin glue and Ioban were applied. The stomas were matured with 3-0 Vicryl. Stoma appliances were placed. The patient tolerated the procedure well and will be taken to PACU in stable condition.
[2023-06-04 17:43] LABS: Glucose,Whole Blood 132 mg/dL (70-110)
[2023-06-05] MEDS: HEPARIN SODIUM,PORCINE 5,000 UNIT/ML 1 ML VIAL SQ SCH (00:56)
[2023-06-05 09:33] LABS: Basophils # (A) 0.01 X 10*3/uL (0.00-0.10); Basophils % (A) 0.1 %; Eosinophils # (A) 0 X 10*3/uL (0.04-0.35); Eosinophils % (A) 0 %; HCT 39.6 % (39.6-50.0); Lymphocytes # (A) 1.11 X 10*3/uL (0.90-5.00); Lymphocytes % (A) 9.4 %; MCH 31.6 pg (27.0-32.0); MCHC 32.8 g/dL (32.0-37.0); MCV 96.4 FL (80.0-97.0); Mean Platelet Volume 9.7 FL (9.5-12.2); Monocytes # (A) 1.47 X 10*3/uL (0.20-1.00); Monocytes % (A) 12.5 %; NRBC Per 100 WBC 0 X 10*3/uL (0.00-0.01); Neutrophils # (A) 9.15 X 10*3/uL (1.80-7.70); Neutrophils % (A) 77.6 %; Platelet Count 343 X 10*3/uL (140-440); RBC 4.11 X 10*6/uL (4.40-5.60); RDW 13.3 % (11.5-14.5); WBC 11.79 X 10*3/uL (4.50-10.00)
[2023-06-05 09:55] LABS: BUN/Creat Ratio 21.36 Ratio (12.00-20.00); Blood Urea Nitrogen 23.5 mg/dL (9.0-27.0); Calcium 8.7 mg/dL (8.7-10.3); Carbon Dioxide 27.3 mmol/L (21.6-31.8); Chloride 108 mmol/L (96-109); Glucose 152 mg/dL (70-110); Potassium 5.2 mmol/L (3.5-5.5); Sodium 144 mmol/L (135-145)
--- NOTE | 2023-06-05 11:39 | P.PN ---
Subjective Progress Note Date: 06/05/23 Patient is postop day 1 from diverting colostomy mucous fistula for obstructing colon mass. Patient has had significant output through colostomy. He has had some mild incisional pain. On exam vital signs appear stable. Abdomen is soft. Incisions clean are intact. Patient to receive supportive care. Will plan for definitive surgical care in 3 to 4 weeks. Objective - Vital Signs Vital signs: Vital Signs Temp 98.4 F 06/05/23 08:10 Pulse 89 06/05/23 09:40 Resp 18 06/05/23 09:40 BP 162/90 06/05/23 08:10 Pulse Ox 97 06/05/23 08:10 FiO2 Intake & Output 06/04/23 06/05/23 06/05/23 18:59 06:59 18:59 Intake Total 2550 Output Total 770 900 500 Balance 1780 -900 -500 Weight 70.76 kg Intake: IV 2550 Oral 0 Output: Gastric Drainage 120 Urine 550 400 Stool 0 500 500 Estimated Blood Loss 100 Other: Voiding Method Toilet Indwelling Catheter Indwelling Catheter Urinal - Labs CBC & Chem 7: 06/05/23 07:06 06/05/23 07:06 Labs: Abnormal Lab Results - Last 24 Hours (Table) 06/04/23 06/05/23 06/05/23 Range/Units 17:42 07:06 07:06 WBC 11.79 H (4.50-10.00) X 10*3/uL RBC 4.11 L (4.40-5.60) X 10*6/uL Immature Gran # 0.05 H (0.00-0.04) X 10*3/uL Neutrophils # 9.15 H (1.80-7.70) X 10*3/uL Monocytes # 1.47 H (0.20-1.00) X 10*3/uL Eosinophils # 0 L (0.04-0.35) X 10*3/uL BUN/Creatinine Ratio 21.36 H (12.00-20.00) Ratio Glucose 152 H (70-110) mg/dL POC Glucose (mg/dL) 132 H (70-110) mg/dL
--- NOTE | 2023-06-05 15:18 | P.PN ---
Subjective Progress Note Date: 06/05/23 (delayed charting seen at 0845) Patient is a 62-year-old male with no significant past medical history who presented to the hospital with a 2-week history of constipation, nausea, and vomiting. Patient has been to different ERs over the last several weeks and was diagnosed with constipatiom.initially he was given enemas without much improvement. He then went to [facility] and had a CT done which he was told showed fecal impaction and he was sent home with enema. On arrival to our ER here he was tachycardic and hypertensive. Initial laboratory analysis was remarkable for white blood cell count 11.8, platelets 455, sodium 135, and lactic acid of 4.3. 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 He was admitted for bowel obstruction due to large sigmoid mass. General surgery was consulted. They saw the patient on the morning of 06/04 and recommended a decompressive colostomy which was preformed on 06/04/23. Patient seen and examined at bedside. Pain is better controlled today than yesterday. He has had some output from his ostomy's. He is okay with plan of care. Discussed with nursing and they have had to empty his ostomy bag twice. Vital signs reviewed General: Nontoxic, no distress, appears at stated age Cardiovascular: S1S2 reg, no murmur Lungs: CTA bilateral, no rhonchi, no rales, no accessory muscle use Abdominal: Soft, tender to palpation diffusely, no guarding, [address] with copious amounts of stool output Ext: No gross muscle atrophy, no edema b/l lower extremities, no contractures Neuro: CN II-XI grossly intact, no focal neuro deficits Psych: Alert, oriented, appropriate affect Assessment/Plan: Large bowel obstruction with sigmoid mass - Continue with NGT -Continue with cefepime 2 g IV every 12 hours day #2, metronidazole 500 mg IV every 8 hours day #2 -Morphine 4 mg IV every 4 hours. -Decrease IV fluids to 75 cc/h -Case discussed with Dr. Noe. Plan will be to bring patient back in 3 to 4 weeks for definitive surgical care with resection of tumor. - NPO Leukocytosis -Suspect reactive -Repeat CBC in a.m. Lactic acidosis, resolved Thrombocytosis, resolved Imaging: None new Data Review: CBC and basic metabolic profile reviewed remarkable for white blood cell count 11.7. DVT prophylaxis: SCDs Anticipated discharge date: Pending Clinical Course Anticipated discharge place: Pending Clinical Course This dictation was prepared using [employer] voice recognition software. Though every attempt is made to correct errors during dictation some may still exist. Objective - Vital Signs Vital signs: Vital Signs Temp 97.8 F 06/05/23 14:09 Pulse 105 H 06/05/23 14:09 Resp 17 06/05/23 14:09 BP 163/91 06/05/23 14:09 Pulse Ox 92 L 06/05/23 14:09 FiO2 Intake & Output 06/04/23 06/05/23 06/05/23 18:59 06:59 18:59 Intake Total 2550 Output Total 770 900 500 Balance 1780 -900 -500 Weight 70.76 kg Intake: IV 2550 Oral 0 Output: Gastric Drainage 120 Urine 550 400 Stool 0 500 500 Estimated Blood Loss 100 Other: Voiding Method Toilet Indwelling Catheter Indwelling Catheter Urinal - Labs CBC & Chem 7: 06/05/23 07:06 06/05/23 07:06 Labs: Abnormal Lab Results - Last 24 Hours (Table) 06/04/23 06/05/23 06/05/23 Range/Units 17:42 07:06 07:06 WBC 11.79 H (4.50-10.00) X 10*3/uL RBC 4.11 L (4.40-5.60) X 10*6/uL Immature Gran # 0.05 H (0.00-0.04) X 10*3/uL Neutrophils # 9.15 H (1.80-7.70) X 10*3/uL Monocytes # 1.47 H (0.20-1.00) X 10*3/uL Eosinophils # 0 L (0.04-0.35) X 10*3/uL BUN/Creatinine Ratio 21.36 H (12.00-20.00) Ratio Glucose 152 H (70-110) mg/dL POC Glucose (mg/dL) 132 H (70-110) mg/dL
[2023-06-05] MEDS: HYDROmorphone 1 MG/ML 1 ML SYRINGE IVP PRN (16:03)
--- NOTE | 2023-06-05 16:32 | XR ---
EXAMINATION TYPE: XR abdomen 1V DATE OF EXAM: 06/05/2023 4:25 PM CLINICAL INDICATION:Male, 62 years old with history of check NG placement; H COMPARISON: None. TECHNIQUE: One radiographic view of the abdomen was obtained. FINDINGS: The bowel gas pattern is nonspecific without dilated loops of small or large bowel. There i s no evidence for organomegaly or pneumoperitoneum. The osseous structures are intact. Fecal materi al and gas are demonstrated throughout the colon and rectum, with moderate stool burden. Enteric tube seen coursing below the stomach with side-port and tip in appropriate position. IMPRESSION: 1. Nonspecific bowel gas pattern without radiographic evidence for acute process. 2. Appropriate positioned enteric tube.
[2023-06-05] MEDS: BENZOCAINE SPRAY 1 CAN MUCOUS MEM PRN (20:08)
[2023-06-06 08:38] LABS: HCT 34.6 % (39.6-50.0); HGB 11.4 g/dL (13.0-17.0); MCH 31.8 pg (27.0-32.0); MCHC 32.9 g/dL (32.0-37.0); MCV 96.6 FL (80.0-97.0); NRBC Per 100 WBC 0 X 10*3/uL (0.00-0.01); Platelet Count 303 X 10*3/uL (140-440); RBC 3.58 X 10*6/uL (4.40-5.60); RDW 13.2 % (11.5-14.5); WBC 12.42 X 10*3/uL (4.50-10.00)
[2023-06-06 08:53] LABS: Blood Urea Nitrogen 20.8 mg/dL (9.0-27.0); Calcium 8.4 mg/dL (8.7-10.3); Carbon Dioxide 25.2 mmol/L (21.6-31.8); Chloride 108 mmol/L (96-109); Glucose 104 mg/dL (70-110); Potassium 4.1 mmol/L (3.5-5.5); Sodium 144 mmol/L (135-145)
--- NOTE | 2023-06-06 14:56 | P.PN ---
Subjective Progress Note Date: 06/06/23 CHIEF COMPLAINT: Colon mass HISTORY OF PRESENT ILLNESS: Patient is postop day #2 status post diverting co lostomy with mucous fistula for obstructing colon mass. Output through the colostomy and mucous fistula have stopped. Patient has only had 100 mL output through the NG tube. He reports his pain is controlled. Denies any nausea. Afebrile. Has been mildly tachycardic. WBC is up from 11.79-12.42 Hgb 11.4 plt 303 PHYSICAL EXAM: VITAL SIGNS: Reviewed. GENERAL: Well-developed in no acute distress. ABDOMEN: Soft. Diffuse tenderness. Surgical incision clean dry and intact. Mucous fistula and colostomy with no output. Stomas the mucous fistula and colostomy have darkened areas. NEUROLOGIC: Alert and oriented. Cranial nerves II through XII grossly intact. ASSESSMENT: 1. Colon obstruction secondary to sigmoid colon mass status post diverting colostomy with mucous fistula PLAN: -Discontinue NG tube -Start clear liquid diet -Continue IV fluids for now -Continue antibiotics -Continue pain management -Encourage patient to use incentive spirometer -DVT prophylaxis subcu heparin and GI prophylaxis Protonix Physician Outboard Motor Tester note has been reviewed by physician. Signing provider agrees with the documented findings, assessment, and plan of care. Objective - Vital Signs Vital signs: Vital Signs Temp 97.4 F L 06/06/23 13:10 Pulse 105 H 06/06/23 13:10 Resp 18 06/06/23 13:10 BP 163/85 06/06/23 13:10 Pulse Ox 92 L 06/06/23 13:10 FiO2 Intake & Output 06/05/23 06/06/23 06/06/23 18:59 06:59 18:59 Intake Total 0 Output Total 500 900 900 Balance -500 -900 -900 Intake: Oral 0 Output: Drainage 200 Face 200 Urine 700 400 Stool 500 500 Other: Voiding Method Indwelling Catheter Indwelling Catheter Urinal # Bowel Movements 2 - Labs CBC & Chem 7: 06/06/23 05:23 06/06/23 05:23 Labs: Abnormal Lab Results - Last 24 Hours (Table) 06/06/23 06/06/23 Range/Units 05:23 05:23 WBC 12.42 H (4.50-10.00) X 10*3/uL RBC 3.58 L (4.40-5.60) X 10*6/uL Hgb 11.4 L (13.0-17.0) g/dL Hct 34.6 L (39.6-50.0) % BUN/Creatinine Ratio 20.80 H (12.00-20.00) Ratio Calcium 8.4 L (8.7-10.3) mg/dL
--- NOTE | 2023-06-06 17:06 | P.PN ---
Subjective Progress Note Date: 06/06/23 (scott charting seen at 0805) Patient is a 62-year-old male with no significant past medical history who presented to the hospital with a 2-week history of constipation, nausea, and vomiting. Patient has been to different ERs over the last several weeks and was diagnosed with constipatiom.initially he was given enemas without much improvement. He then went to [facility] and had a CT done which he was told showed fecal impaction and he was sent home with enema. On arrival to our ER here he was tachycardic and hypertensive. Initial laboratory analysis was remarkable for white blood cell count 11.8, platelets 455, sodium 135, and lactic acid of 4.3. 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 He was admitted for bowel obstruction due to large sigmoid mass. General surgery was consulted. They saw the patient on the morning of 06/04 and recommended a decompressive colostomy which was preformed on 06/04/23. Patient seen and examined at bedside. He continues to have some abdominal pain. His biggest complaint is the NG tube still in place which is making him have some throat sore throat and nausea. Vital signs reviewed General: Nontoxic, no distress, appears at stated age Cardiovascular: S1S2 reg, no murmur Lungs: CTA bilateral, no rhonchi, no rales, no accessory muscle use Abdominal: Soft, tender to palpation diffusely, no guarding, [address] with copious amounts of stool output Ext: No gross muscle atrophy, no edema b/l lower extremities, no contractures Neuro: CN II-XI grossly intact, no focal neuro deficits Psych: Alert, oriented, appropriate affect Assessment/Plan: Large bowel obstruction with sigmoid mass -Surgery note reviewed: Start clear liquid diet, discontinue NG tube, continue IV fluids. Continue with antibiotics. -Continue with cefepime 2 g IV every 12 hours day #3, metronidazole 500 mg IV every 8 hours day #3 -Morphine 4 mg IV every 4 hours. -0.9 NS 75 cc/h - clear liquid diet Leukocytosis -Suspect reactive -Repeat CBC in a.m. Acute blood loss anemia, anticipated outcome of surgery -Follow CBC. Patient has had a 6 g drop in hemoglobin though it is suspected that he was slightly hemoconcentrated on arrival. Lactic acidosis, resolved Thrombocytosis, resolved Imaging: None new Data Review: Labs reviewed from today include CBC and basic metabolic profile which are remarkable for white blood cell count of 12.42 and hemoglobin of 11.4. DVT prophylaxis: SCDs Anticipated discharge date: Pending Clinical Course Anticipated discharge place: Pending Clinical Course This dictation was prepared using [employer] voice recognition software. Though every attempt is made to correct errors during dictation some may still exist. Objective - Vital Signs Vital signs: Vital Signs Temp 97.4 F L 06/06/23 13:10 Pulse 105 H 06/06/23 13:10 Resp 18 06/06/23 13:10 BP 163/85 06/06/23 13:10 Pulse Ox 92 L 06/06/23 13:10 FiO2 Intake & Output 06/05/23 06/06/23 06/06/23 18:59 06:59 18:59 Intake Total 0 Output Total 320 941 0326 Balance -500 -900 -1100 Intake: Oral 0 Output: Drainage 200 Face 200 Urine 700 600 Stool 500 500 Other: Voiding Method Indwelling Catheter Indwelling Catheter Urinal # Bowel Movements 2 - Labs CBC & Chem 7: 06/06/23 05:23 06/06/23 05:23 Labs: Abnormal Lab Results - Last 24 Hours (Table) 06/06/23 06/06/23 Range/Units 05:23 05:23 WBC 12.42 H (4.50-10.00) X 10*3/uL RBC 3.58 L (4.40-5.60) X 10*6/uL Hgb 11.4 L (13.0-17.0) g/dL Hct 34.6 L (39.6-50.0) % BUN/Creatinine Ratio 20.80 H (12.00-20.00) Ratio Calcium 8.4 L (8.7-10.3) mg/dL
[2023-06-06] MEDS: HYDROcodone/APAP 5-325MG 1 EACH TAB PO PRN (21:06)
[2023-06-07 11:29] LABS: BUN/Creat Ratio 22.62 Ratio (12.00-20.00); Blood Urea Nitrogen 18.1 mg/dL (9.0-27.0); Calcium 8.2 mg/dL (8.7-10.3); Chloride 107 mmol/L (96-109); Glucose 105 mg/dL (70-110); Potassium 3.9 mmol/L (3.5-5.5); Sodium 142 mmol/L (135-145)
[2023-06-07 11:44] LABS: Basophils # (A) 0.01 X 10*3/uL (0.00-0.10); Basophils % (A) 0.1 %; Eosinophils # (A) 0.03 X 10*3/uL (0.04-0.35); Eosinophils % (A) 0.3 %; HCT 33.2 % (39.6-50.0); HGB 10.9 g/dL (13.0-17.0); Lymphocytes # (A) 1.72 X 10*3/uL (0.90-5.00); Lymphocytes % (A) 17.6 %; MCH 32.2 pg (27.0-32.0); MCHC 32.8 g/dL (32.0-37.0); MCV 98.2 FL (80.0-97.0); Mean Platelet Volume 10.4 FL (9.5-12.2); Monocytes # (A) 0.91 X 10*3/uL (0.20-1.00); Monocytes % (A) 9.3 %; NRBC Per 100 WBC 0 X 10*3/uL (0.00-0.01); Neutrophils # (A) 7.09 X 10*3/uL (1.80-7.70); Neutrophils % (A) 72.3 %; Platelet Count 312 X 10*3/uL (140-440); RBC 3.38 X 10*6/uL (4.40-5.60); RDW 13.3 % (11.5-14.5)
--- NOTE | 2023-06-07 13:00 | P.PN ---
Subjective Progress Note Date: 06/07/23 CHIEF COMPLAINT: Colon mass HISTORY OF PRESENT ILLNESS: Patient is postop day #3 status post diverting co lostomy with mucous fistula for obstructing colon mass. Patient has had no significant output through the colostomy or mucous fistula. He reports his pain is controlled. Denies any nausea or vomiting. Afebrile. Mildly tachycardic improved. WBC is down from 12.42-9.8 Hgb 10.9 PHYSICAL EXAM: VITAL SIGNS: Reviewed. GENERAL: Well-developed in no acute distress. ABDOMEN: Soft. Diffuse tenderness. Surgical incision clean dry and intact. Mucous fistula and colostomy with no output. NEUROLOGIC: Alert and oriented. Cranial nerves II through XII grossly intact. ASSESSMENT: 1. Colon obstruction secondary to sigmoid colon mass status post diverting colostomy with mucous fistula PLAN: -Advance diet to full liquids -Continue IV fluids for now -Continue antibiotics -Continue pain management -Encourage patient to use incentive spirometer -DVT prophylaxis subcu heparin and GI prophylaxis Protonix Physician [employer] Registrar note has been reviewed by physician. Signing provider agrees with the documented findings, assessment, and plan of care. Objective - Vital Signs Vital signs: Vital Signs Temp 98.3 F 06/07/23 07:45 Pulse 92 06/07/23 07:45 Resp 18 06/07/23 09:21 BP 158/94 06/07/23 07:45 Pulse Ox 95 06/07/23 07:45 FiO2 Intake & Output 06/06/23 06/07/23 06/07/23 18:59 06:59 18:59 Intake Total 900 480 Output Total 1100 1150 550 Balance -200 -670 -550 Intake: Intake, IV Titration 900 Amount Sodium Chloride 0.9% 1, 900 000 ml @ 75 mls/hr IV . [id number] [facility] Rx#:[id number] Oral 480 Output: Drainage 400 Face 400 Urine 600 750 550 Stool 500 Other: Voiding Method Urinal Urinal Urinal # Voids 1 - Labs CBC & Chem 7: 06/07/23 05:59 06/07/23 05:59 Labs: Abnormal Lab Results - Last 24 Hours (Table) 06/07/23 06/07/23 Range/Units 05:59 05:59 RBC 3.38 L (4.40-5.60) X 10*6/uL Hgb 10.9 L (13.0-17.0) g/dL Hct 33.2 L (39.6-50.0) % MCV 98.2 H (80.0-97.0) FL MCH 32.2 H (27.0-32.0) pg Eosinophils # 0.03 L (0.04-0.35) X 10*3/uL BUN/Creatinine Ratio 22.62 H (12.00-20.00) Ratio Calcium 8.2 L (8.7-10.3) mg/dL
--- NOTE | 2023-06-07 16:16 | P.PN ---
Subjective Progress Note Date: 06/07/23 (delayed chartings seen at 0845) Patient is a 62-year-old male with no significant past medical history who presented to the hospital with a 2-week history of constipation, nausea, and vomiting. Patient has been to different ERs over the last several weeks and was diagnosed with constipatiom.initially he was given enemas without much improvement. He then went to [facility] and had a CT done which he was told showed fecal impaction and he was sent home with enema. On arrival to our ER here he was tachycardic and hypertensive. Initial laboratory analysis was remarkable for white blood cell count 11.8, platelets 455, sodium 135, and lactic acid of 4.3. 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 He was admitted for bowel obstruction due to large sigmoid mass. General surgery was consulted. They saw the patient on the morning of 06/04 and recommended a decompressive colostomy which was preformed on 06/04/23. Patient seen and examined at bedside. Plan of care. His pain is slightly better than yesterday. No nausea or vomiting. Feeling better with his NG tube out. Vital signs reviewed General: Nontoxic, no distress, appears at stated age Cardiovascular: S1S2 reg, no murmur Lungs: CTA bilateral, no rhonchi, no rales, no accessory muscle use Abdominal: Soft, tender to palpation diffusely, no guarding, [address] with copious amounts of stool output Ext: No gross muscle atrophy, no edema b/l lower extremities, no contractures Neuro: CN II-XI grossly intact, no focal neuro deficits Psych: Alert, oriented, appropriate affect Assessment/Plan: Large bowel obstruction with sigmoid mass -General surgery note reviewed: Advance to full liquid diet, continue IV antibiotics, continue pain management -Encourage patient to using [place] 5/325 every 6 hours with Dilaudid for breakthrough pain. -Continue with cefepime 2 g IV every 12 hours day #4, metronidazole 500 mg IV every 8 hours day #4 - Plan is for Surgery in 4-6 weeks to remove mass and possibly preform ostomy take down. -Morphine 4 mg IV every 4 hours. -0.9 NS 75 cc/h Elevated blood pressures without diagnosis of hypertension. -Norvasc 5 mg daily Acute blood loss anemia, anticipated outcome of surgery -Follow CBC. Patient has had a 6 g drop in hemoglobin though it is suspected that he was slightly hemoconcentrated on arrival. Lactic acidosis, resolved Thrombocytosis, resolved Leukocytosis, resolved Imaging: None new Data Review: Labs reviewed from today include CBC and basic metabolic profile which are remarkable for hemoglobin of 10.9. DVT prophylaxis: SCDs Anticipated discharge date: Pending Clinical Course Anticipated discharge place: Pending Clinical Course This dictation was prepared using [employer] voice recognition software. Though every attempt is made to correct errors during dictation some may still exist. Objective - Vital Signs Vital signs: Vital Signs Temp 97.5 F L 06/07/23 12:57 Pulse 68 06/07/23 12:57 Resp 20 06/07/23 12:57 BP 156/87 06/07/23 12:57 Pulse Ox 95 06/07/23 12:57 FiO2 Intake & Output 06/06/23 06/07/23 06/07/23 18:59 06:59 18:59 Intake Total 900 480 Output Total 1100 1150 550 Balance -200 -670 -550 Intake: Intake, IV Titration 900 Amount Sodium Chloride 0.9% 1, 900 000 ml @ 75 mls/hr IV . [id number] [facility] Rx#:[id number] Oral 480 Output: Drainage 400 Face 400 Urine 600 750 550 Stool 500 Other: Voiding Method Urinal Urinal Urinal # Voids 1 - Labs CBC & Chem 7: 06/07/23 05:59 06/07/23 05:59 Labs: Abnormal Lab Results - Last 24 Hours (Table) 06/07/23 06/07/23 Range/Units 05:59 05:59 RBC 3.38 L (4.40-5.60) X 10*6/uL Hgb 10.9 L (13.0-17.0) g/dL Hct 33.2 L (39.6-50.0) % MCV 98.2 H (80.0-97.0) FL MCH 32.2 H (27.0-32.0) pg Eosinophils # 0.03 L (0.04-0.35) X 10*3/uL BUN/Creatinine Ratio 22.62 H (12.00-20.00) Ratio Calcium 8.2 L (8.7-10.3) mg/dL
[2023-06-07] MEDS: amLODIPine 5 MG TAB PO SCH (16:50)
[2023-06-08 08:19] LABS: HCT 34.2 % (39.6-50.0); HGB 11.4 g/dL (13.0-17.0); MCHC 33.3 g/dL (32.0-37.0); MCV 96.1 FL (80.0-97.0); Mean Platelet Volume 10.2 FL (9.5-12.2); NRBC Per 100 WBC 0 X 10*3/uL (0.00-0.01); Platelet Count 333 X 10*3/uL (140-440); RBC 3.56 X 10*6/uL (4.40-5.60); RDW 12.8 % (11.5-14.5); WBC 9.28 X 10*3/uL (4.50-10.00)
[2023-06-08 08:50] LABS: BUN/Creat Ratio 17.38 Ratio (12.00-20.00); Blood Urea Nitrogen 13.9 mg/dL (9.0-27.0); Calcium 8.2 mg/dL (8.7-10.3); Carbon Dioxide 28.7 mmol/L (21.6-31.8); Chloride 106 mmol/L (96-109); Glucose 106 mg/dL (70-110); Potassium 3.7 mmol/L (3.5-5.5); Sodium 140 mmol/L (135-145)
--- NOTE | 2023-06-08 13:56 | P.PN ---
Subjective Progress Note Date: 06/08/23 (delayed charting seen at 0845) Patient is a 62-year-old male with no significant past medical history who presented to the hospital with a 2-week history of constipation, nausea, and vomiting. Patient has been to different ERs over the last several weeks and was diagnosed with constipatiom.initially he was given enemas without much improvement. He then went to [facility] and had a CT done which he was told showed fecal impaction and he was sent home with enema. On arrival to our ER here he was tachycardic and hypertensive. Initial laboratory analysis was remarkable for white blood cell count 11.8, platelets 455, sodium 135, and lactic acid of 4.3. 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 He was admitted for bowel obstruction due to large sigmoid mass. General surgery was consulted. They saw the patient on the morning of 06/04 and recommended a decompressive colostomy which was preformed on 06/04/23. He continues to do well. Patient seen and examined at bedside. He is doing well today. Pain is getting better every day. No nausea or vomiting. He was somewhat tolerating his diet up until trying the oatmeal today which made him feel slightly nauseous. He did get up and go to the bathroom several times yesterday and sat in the chair all day. Vital signs reviewed General: Nontoxic, no distress, appears at stated age Cardiovascular: S1S2 reg, no murmur Lungs: CTA bilateral, no rhonchi, no rales, no accessory muscle use Abdominal: Soft, tender to palpation diffusely, no guarding, [address] with copious amounts of stool output Ext: No gross muscle atrophy, no edema b/l lower extremities, no contractures Neuro: CN II-XI grossly intact, no focal neuro deficits Psych: Alert, oriented, appropriate affect Assessment/Plan: Large bowel obstruction with sigmoid mass -General surgery note reviewed: Advance to full liquid diet, continue IV antibiotics, continue pain management - [place] 5/325 every 6 hours with Dilaudid for breakthrough pain. Morphine 4 mg IV every 4 hours for severe pain. -Continue with cefepime 2 g IV every 12 hours day #5, metronidazole 500 mg IV every 8 hours day #5 - Plan is for Surgery in 4-6 weeks to remove mass and possibly preform ostomy take down. - off iVF, encourage oral intake Elevated blood pressures without diagnosis of hypertension. -Norvasc 5 mg daily Acute blood loss anemia, anticipated outcome of surgery-now stable -Follow CBC. Patient has had a 6 g drop in hemoglobin though it is suspected that he was slightly hemoconcentrated on arrival. Lactic acidosis, resolved Thrombocytosis, resolved Leukocytosis, resolved Imaging: None new Data Review: Labs reviewed from today include CBC and basic metabolic profile which are remarkable for hemoglobin of 11.4. DVT prophylaxis: SCDs Anticipated discharge date: Pending Clinical Course Anticipated discharge place: Pending Clinical Course This dictation was prepared using [employer] voice recognition software. Though every attempt is made to correct errors during dictation some may still exist. Objective - Vital Signs Vital signs: Vital Signs Temp 98.0 F 06/08/23 12:29 Pulse 91 06/08/23 12:29 Resp 17 06/08/23 12:29 BP 138/76 06/08/23 12:29 Pulse Ox 94 L 06/08/23 12:29 FiO2 Intake & Output 06/07/23 06/08/23 06/08/23 18:59 06:59 18:59 Intake Total 1200 Output Total 950 300 Balance 250 -300 Intake: Intake, IV Titration 1200 Amount Cefepime 2 gm In Sodium 100 Chloride 0.9% 100 ml @ 25 mls/hr IVPB Q12HR [facility] Rx #:[id number] Sodium Chloride 0.9% 1, 900 000 ml @ 75 mls/hr IV . [id number] [facility] Rx#:[id number] metroNIDAZOLE-NS PMX 500 200 mg In Saline 1 100ml.bag @ 100 mls/hr IVPB Q8HR [facility] Rx#:[id number] Output: Urine 950 300 Other: Voiding Method Urinal Urinal Toilet Urinal # Voids 1 2 1 - Labs CBC & Chem 7: 06/08/23 05:27 06/08/23 05:27 Labs: Abnormal Lab Results - Last 24 Hours (Table) 06/08/23 06/08/23 Range/Units 05:27 05:27 RBC 3.56 L (4.40-5.60) X 10*6/uL Hgb 11.4 L (13.0-17.0) g/dL Hct 34.2 L (39.6-50.0) % Calcium 8.2 L (8.7-10.3) mg/dL
--- NOTE | 2023-06-08 15:59 | P.PN ---
Subjective Progress Note Date: 06/08/23 CHIEF COMPLAINT: Colon mass HISTORY OF PRESENT ILLNESS: Patient is postop day #4 status post diverting co lostomy with mucous fistula for obstructing colon mass. Patient reports his pain is controlled. No stool output. Did have some nausea earlier that resolved. Afebrile. WBC is down from 12-9 CEA normal at 3.1 pathology pending PHYSICAL EXAM: VITAL SIGNS: Reviewed. GENERAL: Well-developed in no acute distress. ABDOMEN: Soft. Surgical incision clean dry and intact. Mucous fistula and colostomy with no output. NEUROLOGIC: Alert and oriented. Cranial nerves II through XII grossly intact. ASSESSMENT: 1. Colon obstruction secondary to sigmoid colon mass status post diverting colostomy with mucous fistula PLAN: -Continue full liquids -Continue antibiotics -Continue pain management -Encourage patient to use incentive spirometer -Encourage patient to increase activity level -Awaiting pathology results -Patient can shower -Ostomy teaching today -DVT prophylaxis subcu heparin and GI prophylaxis Protonix Physician Electromechanical Assembly Technician note has been reviewed by physician. Signing provider agrees with the documented findings, assessment, and plan of care. Objective - Vital Signs Vital signs: Vital Signs Temp 97.9 F 06/08/23 07:50 Pulse 84 06/08/23 09:01 Resp 18 06/08/23 08:30 BP 157/83 06/08/23 09:01 Pulse Ox 96 06/08/23 07:50 FiO2 Intake & Output 06/07/23 06/08/23 06/08/23 18:59 06:59 18:59 Intake Total 1200 Output Total 950 300 Balance 250 -300 Intake: Intake, IV Titration 1200 Amount Cefepime 2 gm In Sodium 100 Chloride 0.9% 100 ml @ 25 mls/hr IVPB Q12HR [facility] Rx #:[id number] Sodium Chloride 0.9% 1, 900 000 ml @ 75 mls/hr IV . [id number] [facility] Rx#:[id number] metroNIDAZOLE-NS PMX 500 200 mg In Saline 1 100ml.bag @ 100 mls/hr IVPB Q8HR [facility] Rx#:[id number] Output: Urine 950 300 Other: Voiding Method Urinal Urinal Toilet Urinal # Voids 1 2 1 - Labs CBC & Chem 7: 06/08/23 05:27 06/08/23 05:27 Labs: Abnormal Lab Results - Last 24 Hours (Table) 06/08/23 06/08/23 Range/Units 05:27 05:27 RBC 3.56 L (4.40-5.60) X 10*6/uL Hgb 11.4 L (13.0-17.0) g/dL Hct 34.2 L (39.6-50.0) % Calcium 8.2 L (8.7-10.3) mg/dL
--- NOTE | 2023-06-09 12:27 | P.PN ---
Subjective Progress Note Date: 06/09/23 62-year-old male with no significant past medical history who presented to the hospital with a 2-week history of constipation, nausea, and vomiting. Patient has been to different ERs over the last several weeks and was diagnosed with constipatiom.initially he was given enemas without much improvement. He then went to [facility] and had a CT done which he was told showed fecal impaction and he was sent home with enema. On arrival to our ER here he was tachycardic and hypertensive. Initial laboratory analysis was remarkable for white blood cell count 11.8, platelets 455, sodium 135, and lactic acid of 4.3. 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 He was admitted for bowel obstruction due to large sigmoid mass. General surgery was consulted. They saw the patient on the morning of 06/04 and recommended a decompressive colostomy which was preformed on 06/04/23. 06/09 Patient was seen and examined. He reports a 5/10 pain in his abdomen at the site of surgery. Reports nausea but no vomiting. Tolerating small amount of FLD. General: non toxic, no distress, appears at stated age Derm: warm, dry Head: atraumatic, normocephalic, symmetric Eyes: EOMI, no lid lag, anicteric sclera Mouth: no lip lesion, mucus membranes moist Cardiovascular: S1S2 reg, no murmur Lungs: Clear to auscultation bilateral, no rhonchi, no rales , no accessory muscle use Abdominal: Soft, tender to palpation diffusely, no guarding, [address] Ext: no gross muscle atrophy, no edema, no contractures Neuro: no focal neuro deficits Psych: Alert, oriented, appropriate affect Based on my assessment of this patient, this patient meets a high complexity level of care. Patient has an acute diagnosis of large bowel obstruction with sigmoid mass that poses a threat to life or bodily function. Large bowel obstruction with sigmoid mass: FLD and advance. Pain management with [place] 5 Q4H PRN, Dilaudid 1 mg IV Q3H PRN, Morphine 4 mg IV Q4H PRN. Zofran 4 mg IV Q8H PRN N/V. Cefepime 2g IV BID (D6), Flagyl 500 mg IV TID (D6). Outpatient follow up for sigmoid mass removal and biopsy, possible ostomy take down. Elevated blood pressures without diagnosis of hypertension: Norvasc 5 mg daily Acute blood loss anemia: Anticipated outcome of surgery. Stable. Transfuse if Hg < 7. CODE STATUS: FULL CODE DVT Prophylaxis: Heparin SQ GI Prophylaxis: Designated medical POA if patient is not able to make medical decisions for themselves: I have reviewed the following cloud consultant notes: I have reviewed the results of the following tests: I have ordered the following tests: CBC and BMP I have discussed the care of this patient with the following independent historian: I have independently interpreted the following test below: I have discussed the management of this patient with the following physician: Objective - Vital Signs Vital signs: Vital Signs Temp 98.6 F 06/09/23 07:38 Pulse 88 06/09/23 07:38 Resp 18 06/09/23 07:38 BP 148/82 06/09/23 07:38 Pulse Ox 93 L 06/09/23 07:38 FiO2 Intake & Output 06/08/23 06/09/23 06/09/23 18:59 06:59 18:59 Intake Total 825 Output Total 500 600 Balance 325 -600 Intake: Intake, IV Titration 825 Amount Cefepime 2 gm In Sodium 100 Chloride 0.9% 100 ml @ 25 mls/hr IVPB Q12HR [facility] Rx #:[id number] Sodium Chloride 0.9% 1, 525 000 ml @ 75 mls/hr IV . [id number] [facility] Rx#:[id number] metroNIDAZOLE-NS PMX 500 200 mg In Saline 1 100ml.bag @ 100 mls/hr IVPB Q8HR [facility] Rx#:[id number] Output: Urine 500 600 Other: Voiding Method Toilet Toilet Urinal Urinal # Voids 1 3 1 - Labs CBC & Chem 7: 06/08/23 05:27 06/08/23 05:27
--- NOTE | 2023-06-09 16:01 | P.PN ---
Subjective Progress Note Date: 06/09/23 CHIEF COMPLAINT: Colon mass HISTORY OF PRESENT ILLNESS: Patient is postop day #5 status post diverting co lostomy with mucous fistula for obstructing colon mass. Patient sitting at bedside chair. He did complain of pain and nausea. Still no output from the ostomy. Afebrile. WBC 9.28. Patient received ostomy teaching yesterday PHYSICAL EXAM: VITAL SIGNS: Reviewed. GENERAL: Well-developed in no acute distress. ABDOMEN: Soft. Surgical incision clean dry and intact. Mucous fistula and colostomy with no output. NEUROLOGIC: Alert and oriented. Cranial nerves II through XII grossly intact. ASSESSMENT: 1. Colon obstruction secondary to sigmoid colon mass status post diverting colostomy with mucous fistula PLAN: -Continue full liquids -Continue antibiotics -Continue pain management -Encourage patient to use incentive spirometer -Encourage patient to increase activity level -Patient can shower -DVT prophylaxis subcu heparin and GI prophylaxis Protonix Physician Sales Engineer Account Manager note has been reviewed by physician. Signing provider agrees with the documented findings, assessment, and plan of care. Objective - Vital Signs Vital signs: Vital Signs Temp 97.7 F 06/09/23 13:18 Pulse 81 06/09/23 13:18 Resp 16 06/09/23 13:18 BP 131/75 06/09/23 13:18 Pulse Ox 95 06/09/23 13:18 FiO2 Intake & Output 06/08/23 06/09/23 06/09/23 18:59 06:59 18:59 Intake Total 825 Output Total 500 600 Balance 325 -600 Intake: Intake, IV Titration 825 Amount Cefepime 2 gm In Sodium 100 Chloride 0.9% 100 ml @ 25 mls/hr IVPB Q12HR [facility] Rx #:[id number] Sodium Chloride 0.9% 1, 525 000 ml @ 75 mls/hr IV . [id number] [facility] Rx#:[id number] metroNIDAZOLE-NS PMX 500 200 mg In Saline 1 100ml.bag @ 100 mls/hr IVPB Q8HR [facility] Rx#:[id number] Output: Urine 500 600 Other: Voiding Method Toilet Toilet Urinal Urinal # Voids 1 3 1 - Labs CBC & Chem 7: 06/08/23 05:27 06/08/23 05:27
[2023-06-10 06:16] LABS: African American GFR (CKD) >90 (>60 ml/min/1.73 sqM); Anion Gap 2 mmol/L; Blood Urea Nitrogen 16 mg/dL (9-20); Calcium 8.2 mg/dL (8.4-10.2); Carbon Dioxide 29 mmol/L (22-30); Chloride 104 mmol/L (98-107); Glucose 108 mg/dL (74-99); Non-African American GFR(CKD) >90 (>60 ml/min/1.73 sqM); Potassium 3.5 mmol/L (3.5-5.1); Sodium 135 mmol/L (137-145)
[2023-06-10 06:48] LABS: HCT 36.5 % (39.0-53.0); MCH 32.4 pg (25.0-35.0); MCHC 33.6 g/dL (31.0-37.0); MCV 96.6 fL (80.0-100.0); Mean Platelet Volume 7.9; Platelet Count 343 k/uL (150-450); RBC 3.78 m/uL (4.30-5.90); RDW 12.7 % (11.5-15.5); WBC 9.4 k/uL (3.8-10.6)
[2023-06-10 06:50] LABS: HGB 12.3 gm/dL (13.0-17.5)
[2023-06-10] MEDS: METOCLOPRAMIDE 5 MG/ML 2 ML VIAL IVP PRN (10:13)
[2023-06-10 10:25] VITALS: BMI 26.7
--- NOTE | 2023-06-10 12:26 | P.PN ---
Subjective Progress Note Date: 06/10/23 62-year-old male with no significant past medical history who presented to the hospital with a 2-week history of constipation, nausea, and vomiting. Patient has been to different ERs over the last several weeks and was diagnosed with constipatiom.initially he was given enemas without much improvement. He then went to [facility] and had a CT done which he was told showed fecal impaction and he was sent home with enema. On arrival to our ER here he was tachycardic and hypertensive. Initial laboratory analysis was remarkable for white blood cell count 11.8, platelets 455, sodium 135, and lactic acid of 4.3. 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 He was admitted for bowel obstruction due to large sigmoid mass. General surgery was consulted. They saw the patient on the morning of 06/04 and recommended a decompressive colostomy which was preformed on 06/04/23. 06/09 Patient was seen and examined. He reports a 5/10 pain in his abdomen at the site of surgery. Reports nausea but no vomiting. Tolerating small amount of FLD. 06/10 Patient was seen and examined. Continues to report moderate pain in his abdomen. Not much output from ostomy. One episode of vomiting with oatmeal today. CBC Hg 12.3 Hct 36.5. BMP Na 135, Cr 0.6, glu 108, Ca 8.2. General: non toxic, no distress, appears at stated age Derm: warm, dry Head: atraumatic, normocephalic, symmetric Eyes: EOMI, no lid lag, anicteric sclera Mouth: no lip lesion, mucus membranes moist Cardiovascular: S1S2 reg, no murmur Lungs: Clear to auscultation bilateral, no rhonchi, no rales , no accessory muscle use Abdominal: Soft, tender to palpation diffusely, no guarding, [address] Ext: no gross muscle atrophy, no edema, no contractures Neuro: no focal neuro deficits Psych: Alert, oriented, appropriate affect Based on my assessment of this patient, this patient meets a high complexity level of care. Patient has an acute diagnosis of large bowel obstruction with sigmoid mass that poses a threat to life or bodily function. Large bowel obstruction with sigmoid mass: FLD and advance. Pain management with [place] 5 Q4H PRN, Dilaudid 1 mg IV Q3H PRN, Morphine 4 mg IV Q4H PRN. Zofran 4 mg IV Q8H PRN N/V. Cefepime 2g IV BID (D7), Flagyl 500 mg IV TID (D7). Outpatient follow up for sigmoid mass removal and biopsy, possible ostomy take down. Elevated blood pressures without diagnosis of hypertension: Norvasc 5 mg daily Acute blood loss anemia: Anticipated outcome of surgery. Stable. Transfuse if Hg < 7. CODE STATUS: FULL CODE DVT Prophylaxis: Heparin SQ GI Prophylaxis: Designated medical POA if patient is not able to make medical decisions for t hemselves: I have reviewed the following leadership development consultant notes: Surgery note I have reviewed the results of the following tests: CBC, BMP. I have ordered the following tests: CBC and BMP I have discussed the care of this patient with the following independent historian: I have independently interpreted the following test below: I have discussed the management of this patient with the following physician: Objective - Vital Signs Vital signs: Vital Signs Temp 98.4 F 06/10/23 07:36 Pulse 73 06/10/23 07:36 Resp 17 06/10/23 07:36 BP 142/83 06/10/23 07:36 Pulse Ox 97 06/10/23 07:36 FiO2 Intake & Output 06/09/23 06/10/23 06/10/23 18:59 06:59 18:59 Intake Total 380 Output Total 600 500 Balance -220 -500 Weight 70.76 kg Intake: Intake, IV Titration 380 Amount Cefepime 2 gm In Sodium 100 Chloride 0.9% 100 ml @ 25 mls/hr IVPB Q12HR [facility] Rx #:[id number] Sodium Chloride 0.9% 1, 80 000 ml @ 0 mls/hr IV .STK -MED ONE Rx#:[id number] metroNIDAZOLE-NS PMX 500 200 mg In Saline 1 100ml.bag @ 100 mls/hr IVPB Q8HR [facility] Rx#:[id number] Output: Urine 600 Stool 500 Other: Voiding Method Toilet Toilet Urinal Urinal # Voids 2 1 1 - Labs CBC & Chem 7: 06/10/23 05:40 06/10/23 05:40 Labs: Abnormal Lab Results - Last 24 Hours (Table) 02/16/24 02/16/24 Range/Units 05:40 05:40 RBC 3.78 L (4.30-5.90) m/uL Hgb 12.3 L D (13.0-17.5) gm/dL Hct 36.5 L (39.0-53.0) % Sodium 135 L (137-145) mmol/L Creatinine 0.60 L (0.66-1.25) mg/dL Glucose 108 H (74-99) mg/dL Calcium 8.2 L (8.4-10.2) mg/dL
--- NOTE | 2023-06-10 13:01 | P.PN ---
Subjective Progress Note Date: 06/10/23 CHIEF COMPLAINT: Colon mass HISTORY OF PRESENT ILLNESS: Patient is postop day #6 status post diverting co lostomy with mucous fistula for obstructing colon mass. Patient sitting at bedside chair. He complains of nausea. Still no output from the ostomy. Afebrile. WBC 9.4. Patient received ostomy teaching from ostomy nurse. Patient seen and examined with Dr. Noe PHYSICAL EXAM: VITAL SIGNS: Reviewed. GENERAL: Well-developed in no acute distress. ABDOMEN: Soft. Surgical incision clean dry and intact. Mucous fistula and colostomy with no output. NEUROLOGIC: Alert and oriented. Cranial nerves II through XII grossly intact. ASSESSMENT: 1. Colon obstruction secondary to sigmoid colon mass status post diverting colostomy with mucous fistula PLAN: -Continue full liquids -Continue antibiotics -Continue antiemetics -Continue pain management -Encourage patient to use incentive spirometer -Encourage patient to increase activity level -Patient can shower -DVT prophylaxis subcu heparin and GI prophylaxis Protonix Physician Knotter note has been reviewed by physician. Signing provider agrees with the documented findings, assessment, and plan of care. Objective - Vital Signs Vital signs: Vital Signs Temp 97.6 F 06/10/23 12:24 Pulse 71 06/10/23 12:24 Resp 18 06/10/23 12:24 BP 136/77 06/10/23 12:24 Pulse Ox 93 L 06/10/23 12:24 FiO2 Intake & Output 06/09/23 06/10/23 06/10/23 18:59 06:59 18:59 Intake Total 380 Output Total 600 500 Balance -220 -500 Weight 70.76 kg Intake: Intake, IV Titration 380 Amount Cefepime 2 gm In Sodium 100 Chloride 0.9% 100 ml @ 25 mls/hr IVPB Q12HR [facility] Rx #:[id number] Sodium Chloride 0.9% 1, 80 000 ml @ 0 mls/hr IV .STK -MED ONE Rx#:[id number] metroNIDAZOLE-NS PMX 500 200 mg In Saline 1 100ml.bag @ 100 mls/hr IVPB Q8HR [facility] Rx#:[id number] Output: Urine 600 Stool 500 Other: Voiding Method Toilet Toilet Urinal Urinal # Voids 2 1 1 - Labs CBC & Chem 7: 06/10/23 05:40 06/10/23 05:40 Labs: Abnormal Lab Results - Last 24 Hours (Table) 06/10/23 06/10/23 Range/Units 05:40 05:40 RBC 3.78 L (4.30-5.90) m/uL Hgb 12.3 L D (13.0-17.5) gm/dL Hct 36.5 L (39.0-53.0) % Sodium 135 L (137-145) mmol/L Creatinine 0.60 L (0.66-1.25) mg/dL Glucose 108 H (74-99) mg/dL Calcium 8.2 L (8.4-10.2) mg/dL
--- NOTE | 2023-06-11 09:13 | P.PN ---
Subjective Progress Note Date: 06/11/23 Principal diagnosis: POD 7 transverse end colostomy and mucus fistula No ramps, pain controlled with oral meds. He described flatus in stoma appliance yesterday. Objective - Vital Signs Vital signs: Vital Signs Temp 98.5 F 06/11/23 07:28 Pulse 84 06/11/23 07:28 Resp 17 06/11/23 07:28 BP 147/80 06/11/23 07:28 Pulse Ox 96 06/11/23 07:28 FiO2 Intake & Output 06/10/23 06/11/23 06/11/23 18:59 06:59 18:59 Intake Total 300 1000 Output Total 500 Balance -200 1000 Weight 70.76 kg Intake: Intake, IV Titration 300 400 Amount Cefepime 2 gm In Sodium 100 200 Chloride 0.9% 100 ml @ 25 mls/hr IVPB Q12HR [facility] Rx #:[id number] metroNIDAZOLE-NS PMX 500 200 200 mg In Saline 1 100ml.bag @ 100 mls/hr IVPB Q8HR [facility] Rx#:[id number] Oral 600 Output: Stool 500 Other: Voiding Method Toilet Toilet Urinal Urinal # Voids 1 2 1 - Gastrointestinal General gastrointestinal: Absent: distended (RUQ stoma appliance with liquid stool, LUQ appliance with no output) - Labs CBC & Chem 7: 06/10/23 05:40 06/10/23 05:40 Assessment and Plan (1) Colonic mass Narrative/Plan: s/p colon diversion for obstructing sigmoid mass. Stoma function appropriate for time post op. Current Visit: Yes Status: Acute Code(s): K63.89 - OTHER SPECIFIED DISEASES OF INTESTINE SNOMED Code(s): 681384401 Time with Patient: Less than 30
--- NOTE | 2023-06-11 11:00 | P.PN ---
Subjective Progress Note Date: 06/11/23 62-year-old male with no significant past medical history who presented to the hospital with a 2-week history of constipation, nausea, and vomiting. Patient has been to different ERs over the last several weeks and was diagnosed with constipatiom.initially he was given enemas without much improvement. He then went to [facility] and had a CT done which he was told showed fecal impaction and he was sent home with enema. On arrival to our ER here he was tachycardic and hypertensive. Initial laboratory analysis was remarkable for white blood cell count 11.8, platelets 455, sodium 135, and lactic acid of 4.3. 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 He was admitted for bowel obstruction due to large sigmoid mass. General surgery was consulted. They saw the patient on the morning of 06/04 and recommended a decompressive colostomy which was preformed on 06/04/23. 06/09 Patient was seen and examined. He reports a 5/10 pain in his abdomen at the site of surgery. Reports nausea but no vomiting. Tolerating small amount of FLD. 06/10 Patient was seen and examined. Continues to report moderate pain in his abdomen. Not much output from ostomy. One episode of vomiting with oatmeal today. CBC Hg 12.3 Hct 36.5. BMP Na 135, Cr 0.6, glu 108, Ca 8.2. 06/11 Patient was seen and examined. Reports one episode of NBNB N/V this morning with breakfast. Small amount of flatus in the ostomy bag. Pain is 6-7/10 especially after vomiting. General: non toxic, no distress, appears at stated age Derm: warm, dry Head: atraumatic, normocephalic, symmetric Eyes: EOMI, no lid lag, anicteric sclera Mouth: no lip lesion, mucus membranes moist Cardiovascular: S1S2 reg, no murmur Lungs: Clear to auscultation bilateral, no rhonchi, no rales , no accessory muscle use Abdominal: Soft, tender to palpation diffusely, no guarding, [address] Ext: no gross muscle atrophy, no edema, no contractures Neuro: no focal neuro deficits Psych: Alert, oriented, appropriate affect Based on my assessment of this patient, this patient meets a high complexity level of care. Patient has an acute diagnosis of large bowel obstruction with sigmoid mass that poses a threat to life or bodily function. Large bowel obstruction with sigmoid mass: FLD and advance. Pain management with [place] 5 Q4H PRN, Dilaudid 1 mg IV Q3H PRN, Morphine 4 mg IV Q4H PRN. Zofran 4 mg IV Q8H PRN N/V. Cefepime 2g IV BID (D8), Flagyl 500 mg IV TID (D8). Outpatient follow up for sigmoid mass removal and biopsy, possible ostomy take down. Elevated blood pressures without diagnosis of hypertension: Norvasc 5 mg daily Acute blood loss anemia: Anticipated outcome of surgery. Stable. Transfuse if Hg < 7. CODE STATUS: FULL CODE DVT Prophylaxis: Heparin SQ GI Prophylaxis: Designated medical POA if patient is not able to make medical decisions for themselves: I have reviewed the following weight loss sales consultant notes: Surgery note I have reviewed the results of the following tests: I have ordered the following tests: I have discussed the care of this patient with the following independent historian: Discussed with RN. I have independently interpreted the following test below: I have discussed the management of this patient with the following physician: Objective - Vital Signs Vital signs: Vital Signs Temp 98.5 F 06/11/23 07:28 Pulse 84 06/11/23 07:28 Resp 17 06/11/23 07:28 BP 147/80 06/11/23 07:28 Pulse Ox 96 06/11/23 07:28 FiO2 Intake & Output 06/10/23 06/11/23 06/11/23 18:59 06:59 18:59 Intake Total 300 1000 Output Total 500 Balance -200 1000 Weight 70.76 kg Intake: Intake, IV Titration 300 400 Amount Cefepime 2 gm In Sodium 100 200 Chloride 0.9% 100 ml @ 25 mls/hr IVPB Q12HR RADHA Rx #:[id number] metroNIDAZOLE-NS PMX 500 200 200 mg In Saline 1 100ml.bag @ 100 mls/hr IVPB Q8HR RADHA Rx#:[id number] Oral 600 Output: Stool 500 Other: Voiding Method Toilet Toilet Urinal Urinal # Voids 1 2 1 - Labs CBC & Chem 7: 06/10/23 05:40 06/10/23 05:40
--- NOTE | 2023-06-12 09:28 | P.PN ---
Subjective Progress Note Date: 06/12/23 Patient feels slightly better today. He states his abdominal pain is improved. He he is nauseous improved. On exam vital signs appear stable. Abdomen soft. 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 Patient to receive supportive care. Anticipate discharge home in next 48 hours Objective - Vital Signs Vital signs: Vital Signs Temp 98.4 F 06/12/23 07:40 Pulse 86 06/12/23 07:40 Resp 16 06/12/23 07:40 BP 136/72 06/12/23 07:40 Pulse Ox 95 06/12/23 07:40 FiO2 Intake & Output 06/11/23 06/12/23 06/12/23 18:59 06:59 18:59 Intake Total 60 Output Total 1650 400 Balance -1590 -400 Intake: Oral 60 Output: Urine 1450 250 Stool 200 150 Other: Voiding Method Toilet Toilet Urinal Urinal # Voids 1 - Labs CBC & Chem 7: 06/10/23 05:40 06/10/23 05:40
--- NOTE | 2023-06-12 12:36 | P.PN ---
Subjective Progress Note Date: 06/12/23 62-year-old male with no significant past medical history who presented to the hospital with a 2-week history of constipation, nausea, and vomiting. Patient has been to different ERs over the last several weeks and was diagnosed with constipatiom.initially he was given enemas without much improvement. He then went to [facility] and had a CT done which he was told showed fecal impaction and he was sent home with enema. On arrival to our ER here he was tachycardic and hypertensive. Initial laboratory analysis was remarkable for white blood cell count 11.8, platelets 455, sodium 135, and lactic acid of 4.3. 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 He was admitted for bowel obstruction due to large sigmoid mass. General surgery was consulted. They saw the patient on the morning of 06/04 and recommended a decompressive colostomy which was preformed on 06/04/23. 06/09 Patient was seen and examined. He reports a 5/10 pain in his abdomen at the site of surgery. Reports nausea but no vomiting. Tolerating small amount of FLD. 06/10 Patient was seen and examined. Continues to report moderate pain in his abdomen. Not much output from ostomy. One episode of vomiting with oatmeal today. CBC Hg 12.3 Hct 36.5. BMP Na 135, Cr 0.6, glu 108, Ca 8.2. 06/11 Patient was seen and examined. Reports one episode of NBNB N/V this morning with breakfast. Small amount of flatus in the ostomy bag. Pain is 6-7/10 especially after vomiting. 06/12 Patient was seen and examined. Pain is much better. No nausea or vomiting today. He has received 1 mg of Dilaudid and 8 mg of Morphine over the past 24H. Surgery note reviewed, continue management, anticipate DC in next 48H. General: non toxic, no distress, appears at stated age Derm: warm, dry Head: atraumatic, normocephalic, symmetric Eyes: EOMI, no lid lag, anicteric sclera Mouth: no lip lesion, mucus membranes moist Cardiovascular: S1S2 reg, no murmur Lungs: Clear to auscultation bilateral, no rhonchi, no rales , no accessory muscle use Abdominal: Soft, tender to palpation diffusely, no guarding, [address] Ext: no gross muscle atrophy, no edema, no contractures Neuro: no focal neuro deficits Psych: Alert, oriented, appropriate affect Based on my assessment of this patient, this patient meets a high complexity level of care. Patient has an acute diagnosis of large bowel obstruction with sigmoid mass that poses a threat to life or bodily function. Large bowel obstruction with sigmoid mass: FLD and advance. Pain management with [place] 5 Q4H PRN, Dilaudid 1 mg IV Q3H PRN, Morphine 4 mg IV Q4H PRN. Zofran 4 mg IV Q8H PRN N/V. Cefepime 2g IV BID (D10), Flagyl 500 mg IV TID (D10). Outpatient follow up for sigmoid mass removal and biopsy, possible ostomy take down. Elevated blood pressures without diagnosis of hypertension: Norvasc 5 mg daily Acute blood loss anemia: Anticipated outcome of surgery. Stable. Transfuse if Hg < 7. CODE STATUS: FULL CODE DVT Prophylaxis: Heparin SQ GI Prophylaxis: Designated medical POA if patient is not able to make medical decisions for themselves: I have reviewed the following service delivery management consultant notes: Surgery note I have reviewed the results of the following tests: I have ordered the following tests: I have discussed the care of this patient with the following independent historian: I have independently interpreted the following test below: I have discussed the management of this patient with the following physician: Objective - Vital Signs Vital signs: Vital Signs Temp 98.4 F 06/12/23 07:40 Pulse 86 06/12/23 07:40 Resp 16 06/12/23 07:40 BP 136/72 06/12/23 07:40 Pulse Ox 95 06/12/23 07:40 FiO2 Intake & Output 06/11/23 06/12/23 06/12/23 18:59 06:59 18:59 Intake Total 60 Output Total 1650 400 Balance -1590 -400 Intake: Oral 60 Output: Urine 1450 250 Stool 200 150 Other: Voiding Method Toilet Toilet Urinal Urinal # Voids 1 - Labs CBC & Chem 7: 06/10/23 05:40 06/10/23 05:40
[2023-06-13 10:56] LABS: HCT 40.6 % (39.0-53.0); HGB 13.5 gm/dL (13.0-17.5); MCH 32.1 pg (25.0-35.0); MCHC 33.2 g/dL (31.0-37.0); MCV 96.8 fL (80.0-100.0); Mean Platelet Volume 8.1; Platelet Count 423 k/uL (150-450); RDW 13.3 % (11.5-15.5); WBC 10.6 k/uL (3.8-10.6)
[2023-06-13 11:07] LABS: African American GFR (CKD) >90 (>60 ml/min/1.73 sqM); Anion Gap 5 mmol/L; Blood Urea Nitrogen 12 mg/dL (9-20); Calcium 8.5 mg/dL (8.4-10.2); Carbon Dioxide 26 mmol/L (22-30); Chloride 103 mmol/L (98-107); Glucose 143 mg/dL (74-99); Non-African American GFR(CKD) >90 (>60 ml/min/1.73 sqM); Potassium 3.4 mmol/L (3.5-5.1); Sodium 134 mmol/L (137-145)
--- NOTE | 2023-06-13 11:39 | P.PN ---
Subjective Progress Note Date: 06/13/23 62-year-old male with no significant past medical history who presented to the hospital with a 2-week history of constipation, nausea, and vomiting. Patient has been to different ERs over the last several weeks and was diagnosed with constipatiom.initially he was given enemas without much improvement. He then went to [facility] and had a CT done which he was told showed fecal impaction and he was sent home with enema. On arrival to our ER here he was tachycardic and hypertensive. Initial laboratory analysis was remarkable for white blood cell count 11.8, platelets 455, sodium 135, and lactic acid of 4.3. 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 He was admitted for bowel obstruction due to large sigmoid mass. General surgery was consulted. They saw the patient on the morning of 06/04 and recommended a decompressive colostomy which was preformed on 06/04/23. 06/09 Patient was seen and examined. He reports a 5/10 pain in his abdomen at the site of surgery. Reports nausea but no vomiting. Tolerating small amount of FLD. 06/10 Patient was seen and examined. Continues to report moderate pain in his abdomen. Not much output from ostomy. One episode of vomiting with oatmeal today. CBC Hg 12.3 Hct 36.5. BMP Na 135, Cr 0.6, glu 108, Ca 8.2. 06/11 Patient was seen and examined. Reports one episode of NBNB N/V this morning with breakfast. Small amount of flatus in the ostomy bag. Pain is 6-7/10 especially after vomiting. 06/12 Patient was seen and examined. Pain is much better. No nausea or vomiting today. He has received 1 mg of Dilaudid and 8 mg of Morphine over the past 24H. Surgery note reviewed, continue management, anticipate DC in next 48H. 06/13 Patient was seen and examined. Reports lightheadedness this morning followed by one episode of NBNB vomiting. Currently, feeling OK. He has received 12 mg of Morphine over the past 24H. CBC RBC 4.2. BMP Na 134, K 3.4, Cr 0.61, glu 143. General: non toxic, no distress, appears at stated age Derm: warm, dry Head: atraumatic, normocephalic, symmetric Eyes: EOMI, no lid lag, anicteric sclera Mouth: no lip lesion, mucus membranes moist Cardiovascular: S1S2 reg, no murmur Lungs: Clear to auscultation bilateral, no rhonchi, no rales , no accessory muscle use Abdominal: Soft, tender to palpation diffusely, no guarding, [address] Ext: no gross muscle atrophy, no edema, no contractures Neuro: no focal neuro deficits Psych: Alert, oriented, appropriate affect Based on my assessment of this patient, this patient meets a moderate complexity level of care. Patient has an acute diagnosis of large bowel obstruction with sigmoid mass that poses a threat to life or bodily function. Large bowel obstruction with sigmoid mass: FLD and advance. Pain management with [place] 5 Q4H PRN, Dilaudid 1 mg IV Q3H PRN, Morphine 4 mg IV Q4H PRN. Zofran 4 mg IV Q8H PRN N/V. Completed 10 days of Cefepime and Flagyl. Outpatient follow up for sigmoid mass removal and biopsy, possible ostomy take down. Hypokalemia: KCl 40 meq PO x 1 06/13. Elevated blood pressures without diagnosis of hypertension: Norvasc 5 mg PO QD. Acute blood loss anemia: Anticipated outcome of surgery. Stable. Transfuse if Hg < 7. Plans for discharge home in the next 1-2 days after surgical clearance. CODE STATUS: FULL CODE DVT Prophylaxis: Heparin SQ GI Prophylaxis: Designated medical POA if patient is not able to make medical decisions for themselves: I have reviewed the following senior erp consultant notes: Surgery note I have reviewed the results of the following tests: CBC, BMP. I have ordered the following tests: I have discussed the care of this patient with the following independent historian: I have independently interpreted the following test below: I have discussed the management of this patient with the following physician: Objective - Vital Signs Vital signs: Vital Signs Temp 98.2 F 06/13/23 07:15 Pulse 73 06/13/23 07:15 Resp 16 06/13/23 07:15 BP 145/78 06/13/23 07:15 Pulse Ox 97 06/13/23 07:15 FiO2 Intake & Output 06/12/23 06/13/23 06/13/23 18:59 06:59 18:59 Intake Total 240 Output Total 600 Balance -360 Intake: Oral 240 Output: Urine 400 Stool 200 Other: Voiding Method Toilet Toilet Toilet Urinal # Voids 3 # Bowel Movements 2 100 - Labs CBC & Chem 7: 06/13/23 10:34 06/13/23 10:34 Labs: Abnormal Lab Results - Last 24 Hours (Table) 06/13/23 06/13/23 Range/Units 10:34 10:34 RBC 4.20 L (4.30-5.90) m/uL Sodium 134 L (137-145) mmol/L Potassium 3.4 L (3.5-5.1) mmol/L Creatinine 0.61 L (0.66-1.25) mg/dL Glucose 143 H (74-99) mg/dL
[2023-06-13] MEDS: POTASSIUM CHLORIDE ER 20 MEQ TAB.ER PO STA (11:40)
--- NOTE | 2023-06-13 13:50 | P.PN ---
Subjective Progress Note Date: 06/13/23 CHIEF COMPLAINT: Colon mass HISTORY OF PRESENT ILLNESS: Patient is postop day #9 status post diverting co lostomy with mucous fistula for obstructing colon mass. Patient sitting at bedside chair. He complains of nausea. He is having output from his ostomy. He reports his pain is controlled. Tolerating full liquids. Afebrile. WBC 10.6 potassium 3.4 and being replaced PHYSICAL EXAM: VITAL SIGNS: Reviewed. GENERAL: Well-developed in no acute distress. ABDOMEN: Soft. Surgical incision clean dry and intact. Output from ostomy on the right. Mucous fistula with some serosanguineous fluid noted. NEUROLOGIC: Alert and oriented. Cranial nerves II through XII grossly intact. ASSESSMENT: 1. Colon obstruction secondary to sigmoid colon mass status post diverting colostomy with mucous fistula PLAN: -Anticipate discharge home tomorrow -Continue full liquids -Continue antiemetics -Continue pain management -Encourage patient to use incentive spirometer -Encourage patient to increase activity level -DVT prophylaxis subcu heparin and GI prophylaxis Protonix Physician Washer Meat note has been reviewed by physician. Signing provider agrees with the documented findings, assessment, and plan of care. Objective - Vital Signs Vital signs: Vital Signs Temp 98.2 F 06/13/23 07:15 Pulse 73 06/13/23 07:15 Resp 16 06/13/23 07:15 BP 145/78 06/13/23 07:15 Pulse Ox 97 06/13/23 07:15 FiO2 Intake & Output 06/12/23 06/13/23 06/13/23 18:59 06:59 18:59 Intake Total 240 Output Total 600 Balance -360 Weight 70.76 kg Intake: Oral 240 Output: Urine 400 Stool 200 Other: Voiding Method Toilet Toilet Toilet Urinal # Voids 3 # Bowel Movements 2 100 - Labs CBC & Chem 7: 06/13/23 10:34 06/13/23 10:34 Labs: Abnormal Lab Results - Last 24 Hours (Table) 06/13/23 06/13/23 Range/Units 10:34 10:34 RBC 4.20 L (4.30-5.90) m/uL Sodium 134 L (137-145) mmol/L Potassium 3.4 L (3.5-5.1) mmol/L Creatinine 0.61 L (0.66-1.25) mg/dL Glucose 143 H (74-99) mg/dL
--- NOTE | 2023-06-14 11:55 | CDI ---
Documentation Clarification Form Date: 06/14/2023 11:39:20 AM From: Amrita Elliott RN, CCDS Email: [email or web address] Admit Date: 06/04/2023 01:38:00 AM Patient Name: Guero Hart Visit Number: [id number] Discharge Date: ATTENTION: The Clinical Documentation Specialists (CDI) and [facility] Coding Staff appreciate your assistance in clarifying documentation. Please respond to the clarification below the line at the bottom and electronically sign. The CDI & [facility] Coding staff will review the response and follow-up if needed. Please note: Queries are made part of the Legal Health Record. If you have any questions, please contact the author of this message via ITS. Dr. Hansa Tarango The patient had lactic acidosis, tachycardia and elevated white count on admission. Based on this information and the findings below, is there an additional diagnosis that is clinically appropriate for this patient? History/Risk Factors: diverticulitis and OA. Presented with abdominal pain, nausea, vomiting and constipation. Admitted with bowel obstruction with sigmoid mass. Clinical Indicators: ED: "Vomiting feces, colonic mass, large bowel obstruction, tachycardia, lactic acidosis." H&P: "CT scan of the abdomen done in the ED showed large sigmoid mass and blood work reflected lactic acidosis." 06/04 IM: "Leukocytosis with thrombocytosis." 06/03-06/07 WBC: 11.8-11.79-12.42-9.8 06/03 Lactic acid: 4.3 06/04 Lactic acid: 1.3 06/03 Vital signs: HR 112 06/04 Vital signs: HR 123 Treatment: S/P laparotomy with creation of transverse end colostomy and transverse colon mucus fistula Antibiotics: IV Flagyl 500mg Q8H 06/04-06/13; IV Cefepime 2gm Q12H 06/04-06/13 IV Bolus: 1L 0.9 NS IV bolus on 06/03 then 130mL/hr 06/04-06/05 then 75mL/hr 06/06- 06/09 Is there an additional diagnosis that is clinically appropriate for this patient? [ ] Sepsis, present on admission [ ] SIRS, without underlying infectious process [ ] Other, please specify [ X ] Unable to determine SIRS Criteria: 2 or more of the following may indicate SIRS Temperature < 96.8F (36C) or > 101.0F (38.3C) Heart Rate > 90 bpm Respiratory Rate > 20 breaths/min or PaCO2 < 32 mmHg White Blood Cell Count > 12,000 or < 4,000 cells/mm3 or > 10% bands MTDD
--- NOTE | 2023-06-14 12:03 | P.DS ---
Providers Date of admission: 06/04/23 01:38 Expected date of discharge: 06/14/23 Attending physician: Hansa Tarango MD Consults: 06/04/23 01:38 Consult Physician Urgent Consulting Provider: Blayne Noe Consult Reason/Comments: Large bowel obstruction secondary to sigmoid mass Do you want consulting provider notified?: Already Contacted Primary care physician: Stated None Hospital Course: 62-year-old male with no significant past medical history who presented to the hospital with a 2-week history of constipation, nausea, and vomiting. Patient has been to different ERs over the last several weeks and was diagnosed with constipatiom.initially he was given enemas without much improvement. He then went to [facility] and had a CT done which he was told showed fecal impaction and he was sent home with enema. On arrival to our ER here he was tachycardic and hypertensive. Initial laboratory analysis was remarkable for white blood cell count 11.8, platelets 455, sodium 135, and lactic acid of 4.3. 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 He was admitted for bowel obstruction due to large sigmoid mass. General surgery was consulted. They saw the patient on the morning of 06/04 and recommended a decompressive colostomy which was preformed on 06/04/23. 06/09 Tolerating small amount of FLD. 06/10 Not much output from ostomy. One episode of vomiting with oatmeal today. 06/11 One episode of NBNB N/V this morning with breakfast. Small amount of flatus in the ostomy bag. 06/12 No nausea or vomiting today. 06/13 Reports lightheadedness this morning followed by one episode of NBNB vomiting. Antibiotics discontinued after 10 days. Diet advanced to low fiber. 06/14 Patient was seen and examined. Pain is well controlled. Tolerating breakfast this morning. Discussed with Savanna MOMD TEACHER, cleared for discharge today. He will need to follow up with Dr. Noe in 1 week for sigmoid mass removal and biopsy, and possible ostomy take down. Prescription for [place] and Zofran sent to pharmacy. General: non toxic, no distress, appears at stated age Derm: warm, dry Head: atraumatic, normocephalic, symmetric Eyes: EOMI, no lid lag, anicteric sclera Mouth: no lip lesion, mucus membranes moist Cardiovascular: S1S2 reg, no murmur Lungs: Clear to auscultation bilateral, no rhonchi, no rales , no accessory muscle use Abdominal: Soft, tender to palpation diffusely, no guarding, [address] Ext: no gross muscle atrophy, no edema, no contractures Neuro: no focal neuro deficits Psych: Alert, oriented, appropriate affect Discharge Diagnosis: Large bowel obstruction with sigmoid mass Hypokalemia Elevated blood pressures without diagnosis of hypertension Acute blood loss anemia This complex discharge took 35 minutes to complete. Patient Condition at Discharge: Stable Plan - Discharge Summary New Discharge Prescriptions: New HYDROcodone/APAP 10-325MG [[place] 10-325] 1 tab PO Q4HR PRN 3 Days #18 tab PRN Reason: Pain amLODIPine [Norvasc] 5 mg PO DAILY #30 tab Ondansetron Odt [Zofran Odt] 4 mg PO Q8HR PRN #30 tab PRN Reason: Nausea And Vomiting Discharge Medication List HYDROcodone/APAP 10-325MG [[place] 10-325] 1 tab PO Q4HR PRN 3 Days #18 tab 06/14/23 [Rx] Ondansetron Odt [Zofran Odt] 4 mg PO Q8HR PRN #30 tab 06/14/23 [Rx] amLODIPine [Norvasc] 5 mg PO DAILY #30 tab 06/14/23 [Rx] Follow up Appointment(s)/Referral(s): [facility], [NON-STAFF] - 1 Week None,Stated [Primary Care Provider] - 1-2 days Blayne Noe MD [STAFF PHYSICIAN] - 1 Week Activity/Diet/Wound Care/Special Instructions: Diet: Low fiber Follow up with Dr. Noe within 1 week of discharge to schedule colonic mass removal/biopsy. Discharge Disposition: HOME SELF-CARE
[2023-06-14 14:16] VITALS: BP 122/76; PULSE 80; RESP 17; TEMP 98.6
--- NOTE | 2023-06-14 15:39 | P.PN ---
Subjective Progress Note Date: 06/14/23 CHIEF COMPLAINT: Colon mass HISTORY OF PRESENT ILLNESS: Patient is postop day #10 status post diverting c olostomy with mucous fistula for obstructing colon mass. Patient complains of nausea. Pain is controlled. He is having output from his ostomy. Patient is tolerating diet. Afebrile. PHYSICAL EXAM: VITAL SIGNS: Reviewed. GENERAL: Well-developed in no acute distress. ABDOMEN: Soft. Surgical incision clean dry and intact. Output from ostomy on the right. Mucous fistula with some serosanguineous fluid noted. NEUROLOGIC: Alert and oriented. Cranial nerves II through XII grossly intact. ASSESSMENT: 1. Colon obstruction secondary to sigmoid colon mass status post diverting colostomy with mucous fistula PLAN: -Patient can be discharge from surgical standpoint -Continue low fiber diet -DVT prophylaxis subcu heparin and GI prophylaxis Protonix Physician Mechanical Artist note has been reviewed by physician. Signing provider agrees with the documented findings, assessment, and plan of care. Objective - Vital Signs Vital signs: Vital Signs Temp 98.6 F 06/14/23 12:42 Pulse 80 06/14/23 12:42 Resp 17 06/14/23 12:42 BP 122/76 06/14/23 12:42 Pulse Ox 97 06/14/23 12:42 FiO2 Intake & Output 06/13/23 06/14/23 06/14/23 18:59 06:59 18:59 Weight 70.76 kg Other: Voiding Method Toilet Toilet # Voids 2 3 - Labs CBC & Chem 7: 06/13/23 10:34 06/13/23 10:34
== END 2023-06-14 19:41 | disposition home health service (06) | DRG 231 ==
LOC: EC 22:20 → 5NMEDONC 06-04 01:38
PROVIDERS: ADMIT Internal Medicine; ATTEND Internal Medicine
PROC: 0D1L0Z4 Bypass Transverse Colon to Cutaneous, Open Approach (ICD-10-PCS; principal; 2023-06-04 10:02)
DX: D49.0 Neoplasm of unspecified behavior of digestive system (principal); D62 Acute posthemorrhagic anemia; K63.2 Fistula of intestine; D75.839 Thrombocytosis, unspecified; I10 Essential (primary) hypertension; R00.0 Tachycardia, unspecified; E87.20 Acidosis, unspecified; D72.829 Elevated white blood cell count, unspecified; E87.6 Hypokalemia; R03.0 Elevated blood-pressure reading, without diagnosis of hypertension; Z79.899 Other long term (current) drug therapy; Z79.82 Long term (current) use of aspirin; Z88.1 Allergy status to other antibiotic agents; K56.41 Fecal impaction
CPT/HCPCS: 36415; 43753; 74018; 74177; 80048; 80053; 82378; 83605; 83690; 85025; 85027; 96361; 96374; 96375; 99285

== ENCOUNTER 2023-06-20 16:15 | Emergency (ER) | payer OTHER ==
[2023-06-20 16:40] VITALS: RESP 18
[2023-06-20] MEDS: MORPHINE SULFATE 4 MG/ML SYRINGE IVP STA (17:06)
--- NOTE | 2023-06-20 17:07 | ED ---
Abdominal Pain HPI - General Chief Complaint: Abdominal Pain Stated Complaint: ABD pain Time Seen by Provider: 06/20/23 16:41 Source: patient, family, RN notes reviewed Mode of arrival: ambulatory Limitations: no limitations - History of Present Illness Initial Comments: This is a 62-year-old male who presents to the emergency department for abdominal pain. Patient was discharged 6 days ago after being admitted for a large bowel obstruction secondary to a sigmoid mass. He ended up having creation of a colostomy and mucous fistula. He has a visiting nurse who came out today. She was concerned that the stomas seemed to be retreating and were not as visible. She was also concerned that the abdomen seemed distended and he had decreased output from the stomas. Patient reports increasing abdominal pain today as well. He has a follow up appointment with Dr. Noe scheduled for next week. MD Complaint: abdominal pain - Related Data Previous Rx's Medication Instructions Recorded HYDROcodone/APAP 10-325MG [[place] 1 tab PO Q4HR PRN 3 Days #18 tab 06/14/23 10-325] Ondansetron Odt [Zofran Odt] 4 mg PO Q8HR PRN #30 tab 06/14/23 amLODIPine [Norvasc] 5 mg PO DAILY #30 tab 06/14/23 HYDROcodone/APAP 10-325MG [[place] 1 tab PO Q4HR PRN 3 Days #18 tab 06/20/23 10-325] Levofloxacin [Levaquin] 750 mg PO DAILY 10 Days #10 tab 06/20/23 metroNIDAZOLE [Flagyl] 500 mg PO TID 10 Days #30 tab 06/20/23 Allergies Allergy/AdvReac Type Severity Reaction Status Date / Time amoxicillin AdvReac Nausea & Verified 06/20/23 16:38 Vomiting & Diarrhea Review of Systems ROS Statement: Those systems with pertinent positive or pertinent negative responses have been documented in the HPI. ROS Other: All systems not noted in ROS Statement are negative. Past Medical History Past Medical History: Musculoskeletal Disorder, Osteoarthritis (OA) Additional Past Medical History / Comment(s): "undiagnosed diverticulitis" in the past, Javier Schlatter knee, fell & fx. right ankle last Tuesday, in soft cast per pt. History of Any Multi-Drug Resistant Organisms: None Reported Past Surgical History: Hernia Repair Additional Past Surgical History / Comment(s): Patient had ankle fracture repaired by Dr. Gregory, several pins remain Past Anesthesia/Blood Transfusion Reactions: No Reported Reaction Past Psychological History: No Psychological Hx Reported Past Alcohol Use History: Occasional Past Drug Use History: Marijuana - Past Family History Mother Family Medical History: Cancer Additional Family Medical History / Comment(s): leukemia General Exam Limitations: no limitations General appearance: alert, in no apparent distress Head exam: Present: atraumatic, normocephalic, normal inspection Respiratory exam: Present: normal lung sounds bilaterally. Absent: respiratory distress, wheezes, rales, rhonchi, stridor Cardiovascular Exam: Present: regular rate, normal rhythm, normal heart sounds. Absent: systolic murmur, diastolic murmur, rubs, gallop, clicks GI/Abdominal exam: Present: soft, tenderness (diffuse), normal bowel sounds. Absent: distended, guarding, rebound, rigid Neurological exam: Present: alert, oriented X3, CN II-XII intact Psychiatric exam: Present: normal affect, normal mood Skin exam: Present: warm, dry, intact, normal color. Absent: rash Course Vital Signs 06/20/23 06/20/23 16:33 19:18 Temperature 97.9 F 98.1 F Pulse Rate 102 H 69 Respiratory 18 18 Rate Blood Pressure 131/82 116/76 O2 Sat by Pulse 97 97 Oximetry Medical Decision Making - Medical Decision Making This is a 62 year old male who presents to the emergency department for abdominal pain. Was pt. sent in by a medical professional or institution? @ -No Did you speak to anyone other than the patient for history? @ -No Did you review nursing and triage notes? @ -Yes, and I agree, it is accurate with regards to the patient's symptoms. Were old charts reviewed? @ -Operative note from 06/04/23, when surgery was done by Dr. Loving. He performed a laparotomy with creation transverse end colostomy and transverse colon mucous fistula for large bowel obstruction with sigmoid mass. Differential Diagnosis? @ -Differential Abdominal Pain Men: Appendicitis, cholecystitis, diverticulosis, ischemic bowel, pancreatitis, hepatitis, UTI, gastroenteritis, AAA, incarcerated hernia, bowel obstruction, constipation, inflammatory bowel, hepatitis, peptic ulcer disease, splenic infarction, perforated viscus, testicular torsion, this is not meant to be an all-inclusive list EKG interpreted by me (3pts min.)? @ -Not obtained X-rays interpreted by me (1pt min.)? @ -Not obtained CT interpreted by me (1pt min.)? @ -CT scan of the abdomen and pelvis obtained. My interpretation identifies inflammation around the descending and sigmoid colon. U/S interpreted by me (1pt. min.)? @ -Not obtained What testing was considered but not performed? (CT, X-rays, U/S, labs)? Why? @ -None What meds were considered but not given? Why? @ -None Did you discuss the management of the patient with other professionals? @ -Yes, Dr. Robertson, general surgery, who advised that they would not do any additional surgical intervention at this time and disposition can be based on how the patient is feeling and presenting. Did you reconcile home meds? @ -No Was smoking cessation discussed for >3mins.? @ -No Was critical care preformed (if so, how long)? @ -No Were there social determinants of health that impacted care today? How? (Homelessness, low income, unemployed, alcoholism, drug addiction, [place] [employer], low edu. Level, literacy, decrease access to med. care, [facility] [facility], rehab)? @ -No Was there de-escalation of care discussed even if they declined? (Discuss DNR or withdrawal of care, Hospice)? @ -No What co-morbidities impacted this encounter? (DM, HTN, Smoking, COPD, CAD, Cancer, CVA, Hep., AIDS, mental health diagnosis, sleep apnea, morbid obesity)? @ -None Was patient admitted / discharged? @ -Discharged. Lab work obtained and found to be unremarkable, including no evidence of leukocytosis or elevated lactic acid. CT scan of the abdomen and pelvis obtained demonstrating a large amount of stool in the colon and rectum. There are also ischemic or inflammatory changes involving the descending and sigmoid colon. Case discussed with Dr. Robertson, general surgery, who advised that from a surgical standpoint there is nothing new they would do at this time, and decision on whether to admit the patient can be based on how he is feeling/presenting. Patient states that he does not feel too bad at this time and is comfortable with discharge home. Will start the patient on antibiotics per general surgery recommendations. Prescription for levofloxacin and Flagyl provided with dosing instructions reviewed. He was given strict return parameters. Advise he contact Dr. Noe's office first thing tomorrow morning with any additional questions and to see if they would like to see him for a sooner follow-up appointment. Patient discharged home in stable condition. Undiagnosed new problem with uncertain prognosis? @ -None Drug Therapy requiring intensive monitoring for toxicity (Heparin, Nitro, Insulin, Cardizem)? @ -None Were any procedures done? @ -None Diagnosis/symptom? @ -Colitis, constipation Acute, or Chronic, or Acute on Chronic? @ -Acute Uncomplicated (without systemic symptoms) or Complicated (systemic symptoms)? @ -Uncomplicated Side effects of treatment? @ -None Exacerbation, Progression, or Severe Exacerbation] @ -Not applicable Poses a threat to life or bodily function? @ -No Return precautions reviewed in depth, the patient is instructed to return to the emergency department with any new, worsening, or concerning symptoms. Patient verbalized understanding. This case was discussed in detail with the attending ED physician, Dr. Castillo. Presentation, findings, and treatment plan discussed in detail as well. - Lab Data Result diagrams: 06/20/23 17:04 06/20/23 17:04 Lab Results 06/20/23 06/20/23 06/20/23 Range/Units 17:04 17:04 17:04 WBC 8.0 (3.8-10.6) k/uL RBC 3.93 L (4.30-5.90) m/uL Hgb 13.0 (13.0-17.5) gm/dL Hct 37.9 L (39.0-53.0) % MCV 96.5 (80.0-100.0) fL MCH 33.2 (25.0-35.0) pg MCHC 34.4 (31.0-37.0) g/dL RDW 13.7 (11.5-15.5) % Plt Count 433 (150-450) k/uL MPV 7.3 Neutrophils % 69 % Lymphocytes % 20 % Monocytes % 7 % Eosinophils % 2 % Basophils % 1 % Neutrophils # 5.5 (1.3-7.7) k/uL Lymphocytes # 1.6 (1.0-4.8) k/uL Monocytes # 0.6 (0-1.0) k/uL Eosinophils # 0.2 (0-0.7) k/uL Basophils # 0.0 (0-0.2) k/uL Sodium 135 L (137-145) mmol/L Potassium 3.9 (3.5-5.1) mmol/L Chloride 102 (98-107) mmol/L Carbon Dioxide 27 (22-30) mmol/L Anion Gap 6 mmol/L BUN 18 (9-20) mg/dL Creatinine 0.67 (0.66-1.25) mg/dL Est GFR (CKD-EPI)AfAm >90 (>60 ml/min/1.73 sqM) Est GFR (CKD-EPI)NonAf >90 (>60 ml/min/1.73 sqM) Glucose 187 H (74-99) mg/dL Plasma Lactic Acid Dima 1.6 (0.7-2.0) mmol/L Calcium 8.7 (8.4-10.2) mg/dL Total Bilirubin 0.5 (0.2-1.3) mg/dL AST 22 (17-59) U/L ALT 20 (4-49) U/L Alkaline Phosphatase 62 (38-126) U/L Total Protein 5.4 L (6.3-8.2) g/dL Albumin 3.0 L (3.5-5.0) g/dL - Radiology Data Radiology results: report reviewed, image reviewed Disposition Clinical Impression: History of creation of ostomy, Constipation, Colitis Disposition: HOME SELF-CARE Instructions (If sedation given, give patient instructions): Colostomy Care (ED), Colectomy Diet (ED) Additional Instructions: Return to the emergency department with any new, worsening, or concerning symptoms. Take both antibiotics as prescribed for 10 days. Drink lots of fluids. follow up with Dr. Noe as scheduled. Prescriptions: metroNIDAZOLE [Flagyl] 500 mg PO TID 10 Days #30 tab Levofloxacin [Levaquin] 750 mg PO DAILY 10 Days #10 tab HYDROcodone/APAP 10-325MG [[place] 10-325] 1 tab PO Q4HR PRN 3 Days #18 tab PRN Reason: Pain Is patient prescribed a controlled substance at d/c from ED?: Yes Referrals: None,Stated [Primary Care Provider] - 1-2 days Time of Disposition: 18:55
[2023-06-20 17:16] LABS: Basophils % (A) 1 %; Eosinophils # (A) 0.2 k/uL (0-0.7); Eosinophils % (A) 2 %; HCT 37.9 % (39.0-53.0); Lymphocytes # (A) 1.6 k/uL (1.0-4.8); Lymphocytes % (A) 20 %; MCH 33.2 pg (25.0-35.0); MCHC 34.4 g/dL (31.0-37.0); MCV 96.5 fL (80.0-100.0); Mean Platelet Volume 7.3; Monocytes # (A) 0.6 k/uL (0-1.0); Monocytes % (A) 7 %; Neutrophils # (A) 5.5 k/uL (1.3-7.7); Neutrophils % (A) 69 %; Platelet Count 433 k/uL (150-450); RBC 3.93 m/uL (4.30-5.90); RDW 13.7 % (11.5-15.5)
[2023-06-20 17:25] LABS: ALT 20 U/L (4-49); AST 22 U/L (17-59); African American GFR (CKD) >90 (>60 ml/min/1.73 sqM); Alkaline Phosphatase 62 U/L (38-126); Anion Gap 6 mmol/L; Blood Urea Nitrogen 18 mg/dL (9-20); Calcium 8.7 mg/dL (8.4-10.2); Carbon Dioxide 27 mmol/L (22-30); Chloride 102 mmol/L (98-107); Glucose 187 mg/dL (74-99); Non-African American GFR(CKD) >90 (>60 ml/min/1.73 sqM); Potassium 3.9 mmol/L (3.5-5.1); Sodium 135 mmol/L (137-145); Total Bilirubin 0.5 mg/dL (0.2-1.3); Total Protein 5.4 g/dL (6.3-8.2)
--- NOTE | 2023-06-20 18:13 | CT ---
EXAMINATION TYPE: CT abdomen pelvis w con DATE OF EXAM: 06/20/2023 COMPARISON: 06/04/2023 HISTORY: Abdominal pain and distention. CT DLP: 765 mGycm Automated exposure control for dose reduction was used. TECHNIQUE: Helical acquisition of images was performed from the lung bases through the pelvis. CONTRAST: Performed without Oral Contrast and with IV Contrast, patient injected with 100 ml mL of Isovue 300. FINDINGS: The lung bases are clear. There are tiny liver cysts. The gallbladder is normal with no biliary ductal dilatation. The pancreas is atrophic. There is no splenomegaly. There are no adrenal masses. There is no solid renal mass or hydronephrosis. The caliber of the abdominal aorta is normal no retro peritoneal adenopathy. There is been interval placement of 2 ostomies in the anterior midabdomen. There is a large amount of stool in the colon and rectum. There is diffuse thickening of the wall of the descending and sigmoid colon. The wall appears [place] mucosa appears inflamed. The findings suggest colitis, inflammatory or ischemic in nature. There is no free intraperitoneal air or fluid. There is no small bowel obstruction. There is a left inguinal hernia containing fat and small amount of fluid. There is no pelvic adenopat hy. The osseous structures are intact. IMPRESSION: 1. 2 anterior abdominal wall ostomies with a large amount of stool within the colon and rectum. 2. Ischemic or inflammatory changes involving the descending colon and sigmoid colon. 3. No bowel obstruction. 4. No free intraperitoneal air or fluid
[2023-06-20] MEDS ORDERED: LEVOFLOXACIN 500 MG TAB PO STA (18:50)
[2023-06-20] MEDS ORDERED: metroNIDAZOLE 250 MG TABLET PO ONE (18:50)
[2023-06-20] MEDS: LEVOFLOXACIN 750 MG TAB PO STA (18:55)
[2023-06-20] MEDS: metroNIDAZOLE 500 MG TAB PO STA (18:55)
[2023-06-20 19:27] VITALS: BP 116/76; PULSE 69; TEMP 98.1
== END 2023-06-20 19:20 | disposition home or self-care (01) ==
LOC: EC 16:15
DX: K59.00 Constipation, unspecified (principal); K52.9 Noninfective gastroenteritis and colitis, unspecified; Z87.19 Personal history of other diseases of the digestive system; F12.90 Cannabis use, unspecified, uncomplicated; Z88.0 Allergy status to penicillin
CPT/HCPCS: 99285 ×2; 96374 ×2; 36415; 80053; 83605; 85025; 74177; J2270; Q9967

== ENCOUNTER → 2023-07-12 | Outpatient (CLI) | payer OTHER ==
[2023-07-12 18:11] LABS: Basophils # (A) 0.04 X 10*3/uL (0.00-0.10); Basophils % (A) 0.4 %; Eosinophils # (A) 0.03 X 10*3/uL (0.04-0.35); Eosinophils % (A) 0.3 %; HCT 42.4 % (39.6-50.0); HGB 14.4 g/dL (13.0-17.0); Lymphocytes # (A) 1.78 X 10*3/uL (0.90-5.00); Lymphocytes % (A) 19.9 %; MCH 32.4 pg (27.0-32.0); MCV 95.5 FL (80.0-97.0); Mean Platelet Volume 10.2 FL (9.5-12.2); Monocytes # (A) 0.74 X 10*3/uL (0.20-1.00); Monocytes % (A) 8.3 %; NRBC Per 100 WBC 0 X 10*3/uL (0.00-0.01); Neutrophils # (A) 6.34 X 10*3/uL (1.80-7.70); Neutrophils % (A) 70.9 %; Platelet Count 357 X 10*3/uL (140-440); RBC 4.44 X 10*6/uL (4.40-5.60); WBC 8.95 X 10*3/uL (4.50-10.00)
[2023-07-12 18:40] LABS: Anion Gap 12.3 mmol/L (4.00-12.00); Carbon Dioxide 28.7 mmol/L (21.6-31.8); Potassium 4.4 mmol/L (3.5-5.5)
== END | disposition home or self-care (01) ==
LOC: LABPAT 14:36
PROVIDERS: ATTEND Surgery
DX: Z01.812 Encounter for preprocedural laboratory examination (principal); C18.7 Malignant neoplasm of sigmoid colon
CPT/HCPCS: 36415; 80051; 85025; 86850; 86900; 86901; 93005

== ENCOUNTER 2023-07-22 06:59 | Inpatient (IN) | payer OTHER ==
[~2023-07-22 06:59] MED LIST changes: -ACETAMINOPHEN TAB 500 MG TAB PO ONE; -DEXAMETHASONE SOD PHOSPHATE 10 MG/ML 1 ML VIAL IV ONE; -LACTATED RINGERS 1,000 ML IV SCH; -MIDAZOLAM 2 MG/2 ML VIAL IV PRN; -ONDANSETRON 4 MG/2 ML VIAL IVP ONE; -SCOPOLAMINE 1.5MG/72HR PATCH TRANSDERM ONE; -ceFAZolin IN SWFI 2 GM/20 ML SYRINGE IVP ONE; -fentaNYL (PF) 50 MCG/ML 2 ML AMP IV PRN; +metroNIDAZOLE-NS PMX 500 MG in SALINE 1 100ML.BAG IVPB PRN
[2023-07-22] MEDS ORDERED: HYDROmorphone 0.5 MG/0.5 ML SYRINGE IVP PRN (07:00)
[2023-07-22] MEDS: LACTATED RINGERS 1,000 ML IV SCH (07:36)
[2023-07-22] MEDS: ACETAMINOPHEN TAB 500 MG TAB PO PRN (08:00)
[2023-07-22] MEDS: DEXAMETHASONE SOD PHOSPHATE 4 MG/ML 1 ML VIAL IV ONE (08:00)
[2023-07-22] MEDS: ONDANSETRON 4 MG/2 ML VIAL IVP ONE (08:00)
[2023-07-22] MEDS: MIDAZOLAM 2 MG/2 ML VIAL IV PRN (08:13)
[2023-07-22] MEDS: fentaNYL (PF) 50 MCG/ML 2 ML AMP IVP ONE (08:13)
[2023-07-22] MEDS ORDERED: NALOXONE 0.4 MG/ML 1 ML VIAL IV PRN (08:26)
--- NOTE | 2023-07-22 08:28 | P.ANPRN ---
Procedure Note - Anesthesia - Epidural/Spinal Epidural Continuous Time Out Performed: Yes Date of Procedure: 07/22/23 Procedure Start Time: 08:12 Procedure Stop Time: 08:20 Location of Patient: PreOp Indication: Acute Post-Operative Pain, Requested by Surgeon Sedation Type: Sedate with meaningful contact maintained Preparation: Sterile Dressing Position: Sitting Catheter: Indwelling Needle Guage: 18 Blood Aspirated: No Pain Paresthesia on Injection Noted: No Events: Uneventful and Well Tolerated
[2023-07-22] MEDS: HEPARIN SODIUM,PORCINE 5,000 UNIT/ML 1 ML VIAL SQ PRN (08:40)
[2023-07-22] MEDS ORDERED: ROCURONIUM 10 MG/ML (5 ML VIAL) IV ONE (08:55)
[2023-07-22] MEDS ORDERED: ePHEDrine 50 MG/ML 1 ML VIAL ONE (08:55)
[2023-07-22] MEDS ORDERED: SUCCINYLCHOLINE CHLORIDE 200 MG/10 ML VIAL IV ONE (08:55)
[2023-07-22] MEDS ORDERED: GLYCOPYRROLATE 0.2 MG/ML 2 ML VIAL ONE (08:55)
[2023-07-22] MEDS ORDERED: PHENYLEPHRINE 10 MG/ML VIAL ONE (08:55)
[2023-07-22] MEDS ORDERED: LIDOCAINE 1% INJ 10MG/ML (20 ML MDV) ONE (08:55)
[2023-07-22] MEDS ORDERED: NEOSTIGMINE 1 MG/ML 10 ML VIAL ONE (08:55)
[2023-07-22] MEDS ORDERED: fentaNYL (PF) 50 MCG/ML 2 ML AMP ONE (08:55)
[2023-07-22] MEDS ORDERED: PROPOFOL 10 MG/ML 20 ML VIAL IV ONE (08:55)
[2023-07-22] MEDS: LACTATED RINGERS 1,000 ML IV ONE ×2 (09:55→11:10)
--- NOTE | 2023-07-22 11:47 | P.OP ---
Date of Procedure: 07/22/23 Preoperative Diagnosis: colon obstruction Postoperative Diagnosis: colon obstruction Procedure(s) Performed: sigmoid colectomy Takedown of splenic flexure Reversal of transverse colostomy. Treversal mucus fistula Appendectomy Lysis of adhesions Omentectomy Anesthesia: AMY Surgeon: Blayne Noe Estimated Blood Loss (ml): 50 Pathology: other (colon, appendix) Condition: stable Disposition: PACU Description of Procedure: the patient's placed on the operating table in the supine position. He received general endotracheal anesthesia. His abdomen was prepped and draped usual sterile fashion. The patient had a colostomy in the right upper quadrant and a mucous fistula in the left upper quadrant. Patient was placed in dorsallithotomy position. The skin was incised through the previous midline scar. And then using electrocautery the abdominal wall was divided. There were significant adhesions encountered. Approximately 20 minutes of operative time used to lyse adhesions. Once the adhesions to the abdominal wall were lysed. The Book[place]ter specimen. The patient appeared to have a colonic obstruction of the sigmoid colon. The; was mobilized by dividing the lateral attachments. The decompressed sigmoid colon could be visualized distally. The proximal sigmoid colon appeared to be quite thickened and enlarged. The colonic thickening is extended towards the left colon. At this point the decompressed sigmoid colon was transected with the GI stapler. And then the proximal descending colon was transected with the GI stapler. Using the LigaSure device the mesentery the bowel was divided. The specimens of pathology. The patient had a mucous fistula and transverse colostomy in the right upper quadrant and mucous fistula located left upper quadrant. Using the GI stapler the colon was transected next the fascia. Once the colon was transected off the mucous fistula and colostomy the omentum was attached to a portion of transverse colon. A partial omentectomy was performed by using the LigaSure device. A vqev-yf-mxde functional end-to-end staple anastomosis created using the GI and TA stapler to reconnect the transverse colon after the tatakedown of the mucous fistula and colostomy. A 3-0 GI silk sutures using a crotch stitch. At this point the right colon was mobilized. And then the appendix was removed. Zoloft Was performed due to the significant adhesions. The mesentery of the appendix was divided with the leisure device. And then the appendix was performed using a GI stapler. Next the splenic flexure was mobilized to lengthen the left colon. And then a ucda-pi-qiov functional end-to-end staple S was created between the descending colon and the distal sigmoid colon. 3-0 GI silk sutures a crotch stitch. The anastomosis created using GI and TA staplers. This point the abdomen was irrigated. There is no bleeding seen. The fascia was closed with looped #1 PDS suture. The colostomy mucous fistula were excised. Then the fascia at the sites was closed using #1 Maynor fix suture. The skin was closed speedy. Patient top she will. He was sent to recovery room stable condition.
[2023-07-22] MEDS: ROPIVACAINE 250 MG, HYDROMORPHONE (PF) 5 MG in SODIUM CHLORIDE 0.9% 200 ML EPIDURAL PRN (11:49)
[2023-07-22] MEDS ORDERED: METOCLOPRAMIDE 5 MG/ML 2 ML VIAL IVP PRN (11:50)
[2023-07-22] MEDS: LIDOCAINE 1% INJ 10MG/ML (5 ML VIAL-PF) INTRAARTIC ONE ×2 (12:07)
[2023-07-22] MEDS: SCOPOLAMINE 1 MG/72 HR PATCH TRANSDERM ONE (14:13)
[2023-07-22 14:48] LABS: Basophils % (A) 0 %; Eosinophils % (A) 0 %; HCT 37.3 % (39.0-53.0); HGB 12.3 gm/dL (13.0-17.5); Lymphocytes # (A) 0.4 k/uL (1.0-4.8); Lymphocytes % (A) 3 %; MCH 32.6 pg (25.0-35.0); MCV 98.9 fL (80.0-100.0); Mean Platelet Volume 7.6; Monocytes # (A) 0.7 k/uL (0-1.0); Monocytes % (A) 5 %; Neutrophils # (A) 11.9 k/uL (1.3-7.7); Neutrophils % (A) 91 %; Platelet Count 363 k/uL (150-450); RBC 3.77 m/uL (4.30-5.90); RDW 12.8 % (11.5-15.5); WBC 13.2 k/uL (3.8-10.6)
[2023-07-22 14:57] LABS: African American GFR (CKD) >90 (>60 ml/min/1.73 sqM); Anion Gap 7 mmol/L; Blood Urea Nitrogen 14 mg/dL (9-20); Calcium 8.8 mg/dL (8.4-10.2); Carbon Dioxide 24 mmol/L (22-30); Chloride 99 mmol/L (98-107); Glucose 243 mg/dL (74-99); Non-African American GFR(CKD) >90 (>60 ml/min/1.73 sqM); Potassium 4.3 mmol/L (3.5-5.1); Sodium 130 mmol/L (137-145)
[2023-07-22] MEDS: D5-0.45% NACL WITH KCL 20MEQ/L 1,000 ML IV SCH (16:24)
[2023-07-22] MEDS: ALVIMOPAN 12 MG CAPSULE PO SCH (21:26)
[2023-07-22] MEDS: HEPARIN SODIUM,PORCINE 5,000 UNIT/ML 1 ML VIAL SQ SCH (23:53)
--- NOTE | 2023-07-23 10:46 | P.PN ---
Progress Note - Text Progress Note Date: 07/23/23 Postoperative day #1 status post sigmoid colectomy ,epidural catheter placed for postoperative analgesia, patient doing well epidural site okay, patient currently on combination of epidural infusion solution of Ropivacaine 0.0625% and Dilaudid 20 g per mL the infusion rate at 9 ml per hour , patient had no motor deficit epidural site okay , vital signs stable ,VAS 4/10 , Assessment and plan= post operative day # 1 patient doing well ,pain well controlled , there is no anesthesia related complications
--- NOTE | 2023-07-23 16:58 | P.CONS ---
History of Present Illness - Reason for Consult Consult date: 07/22/23 Medical management - Chief Complaint Colon obstruction/colon mass - History of Present Illness 62-year-old male with no significant past medical history who presented to the hospital on 06/04/2023 with a 2-week history of constipation, nausea, and vomiting. Patient has been to different ERs over the last several weeks and was diagnosed with constipatiom initially he was given enemas without much improvement. He then went to [facility] and had a CT done which he was told showed fecal impaction and he was sent home with enema. Upon arrival to ED on 06/04/2023, he was tachycardic and hypertensive. 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 He was admitted for bowel obstruction due to large sigmoid mass; patient underwent a decompressive colostomy on 06/04/23 -Patient is admitted to the hospital for sigmoid colectomy, takedown of splenic flexure, reversal of transverse colostomy and traverse of mucous fistula with appendectomy and lysis of adhesions and omentectomy; patient is POD #0 Review of Systems REVIEW OF SYSTEMS: CONSTITUTIONAL: No fever, no malaise, no fatigue. HEENT: No recent visual problems or hearing problems. Denied any sore throat. CARDIOVASCULAR: No chest pain, orthopnea, PND, no palpitations, no syncope. PULMONARY: No shortness of breath, no cough, no hemoptysis. GASTROINTESTINAL: No diarrhea, no nausea, no vomiting, no abdominal pain. NEUROLOGICAL: No headaches, no weakness, no numbness. HEMATOLOGICAL: Denies any bleeding or petechiae. GENITOURINARY: Denies any burning micturition, frequency, or urgency. MUSCULOSKELETAL/RHEUMATOLOGICAL: Denies any joint pain, swelling, or any muscle pain. ENDOCRINE: Denies any polyuria or polydipsia. The rest of the 14-point review of systems is negative. Past Medical History Past Medical History: Hypertension, Musculoskeletal Disorder, Osteoarthritis (OA) Additional Past Medical History / Comment(s): "undiagnosed diverticulitis" in the past led to bowel surgery and colostomy, Javier Gutiérrez rt knee, fell & fx. right ankle 2015. pt currently has colostomy and fistula drainage per progress notes. History of Any Multi-Drug Resistant Organisms: None Reported Past Surgical History: Bowel Resection, Hernia Repair Additional Past Surgical History / Comment(s): Patient had ankle fracture repaired by Dr. Gregory, several pins remain. colostomies x2 . Past Anesthesia/Blood Transfusion Reactions: No Reported Reaction Past Psychological History: No Psychological Hx Reported Smoking Status: Former smoker Past Alcohol Use History: None Reported Additional Past Alcohol Use History / Comment(s): quit smoking 15+ yrs. ago, smoked 1ppd for 30 yrs; occasional regular marijuana use. no alcohol in over a month pt states he knows not to drink before upcoming procedure. Past Drug Use History: Marijuana Additional Drug Use History / Comment(s): occasionally, pt aware not to use 24 hrs before procedure. - Past Family History Mother Family Medical History: Cancer Additional Family Medical History / Comment(s): leukemia Sister(s) Family Medical History: Cancer Additional Family Medical History / Comment(s): breast cancer Medications and Allergies Home Medications Medication Instructions Recorded Confirmed Type amLODIPine [Norvasc] 5 mg PO DAILY #30 tab 06/14/23 07/22/23 Rx HYDROcodone/APAP 10-325MG [[place] 1 tab PO Q4HR PRN 3 Days #18 tab 06/20/23 07/22/23 Rx 10-325] Acetaminophen Tab [Tylenol] 325 mg PO DIRECTED PRN 07/15/23 07/22/23 History Allergies Allergy/AdvReac Type Severity Reaction Status Date / Time amoxicillin AdvReac Nausea & Verified 07/22/23 07:34 Vomiting & Diarrhea Physical Exam Vitals: Vital Signs Temp Pulse Resp BP Pulse Ox 07/23/23 10:41 18 07/23/23 06:49 97.5 F L 89 18 120/79 97 07/23/23 01:53 97.5 F L 91 20 111/69 96 07/22/23 19:16 98.6 F 99 20 94/57 97 07/22/23 15:13 102 H 89/62 07/22/23 14:58 94 90/63 07/22/23 14:43 96 93/69 07/22/23 14:29 100 84/59 98 07/22/23 14:13 100 101/69 07/22/23 13:58 100 17 86/59 07/22/23 13:45 96 16 96/57 98 07/22/23 13:30 91 16 92/51 98 07/22/23 13:17 92 16 95/55 98 03/29/24 13:14 89/54 07/22/23 13:00 68 16 79/49 98 07/22/23 12:45 93 16 83/49 98 07/22/23 12:30 93 16 115/65 98 07/22/23 12:15 89 16 121/73 100 07/22/23 12:00 87 16 145/83 100 Intake and Output 07/22/23 07/23/23 07/23/23 22:59 06:59 14:59 Intake Total 276.1 Output Total 0 900 Balance 0 -900 276.1 Intake: Intake, IV Titration 26.1 Amount Ropivacaine 250 mg 26.1 Hydromorphone (Pf) 5 mg In Sodium Chloride 0.9% 200 ml @ Per Protocol EPIDURAL .Q0M PRN Rx#: [id number] Oral 250 Output: Urine 0 900 Other: Voiding Method Indwelling Catheter Indwelling Catheter General appearance: Patient has NG tube in Eyes: Present: anicteric sclerae, EOMI, PERRLA, normal appearance Neck: Present: normal ROM. Absent: lymphadenopathy, rigidity, thyromegaly Thyroid: bilateral: normal size, negative: enlarged, nodule Respiratory: bilateral: CTA, negative: rales, rhonchi, wheezing Cardiovascular; regular;normal: S1, S2 Abnormal Heart Sounds: Absent: systolic murmur, diastolic murmur Gastrointestinal: Present: normal bowel sounds, soft. Absent: distended, organomegaly, tenderness Genitourinary Comment(s): deferred Integumentary: Present: normal turgor. Absent: jaundiced, rash, ulcer Neurologic: Present: CNII-XII intact. Absent: focal deficits Musculoskeletal: Present: gait normal, strength equal bilaterally Psychiatric: Present: A&O x's 3, appropriate affect, intact judgment & insight Results CBC & Chem 7: 07/22/23 14:34 07/22/23 14:34 Labs: Abnormal Lab Results - Last 24 Hours (Table) 07/22/23 07/22/23 Range/Units 14:34 14:34 WBC 13.2 H (3.8-10.6) k/uL RBC 3.77 L (4.30-5.90) m/uL Hgb 12.3 L (13.0-17.5) gm/dL Hct 37.3 L (39.0-53.0) % Neutrophils # 11.9 H (1.3-7.7) k/uL Lymphocytes # 0.4 L (1.0-4.8) k/uL Sodium 130 L (137-145) mmol/L Glucose 243 H (74-99) mg/dL Assessment and Plan Assessment: 1. Colon obstruction/mass; patient is status post sigmoid colectomy with takedown of splenic flexure, reversal of transverse colostomy, appendectomy, lysis of adhesion and omentectomy --POD #0 -- Patient has NG tube in place to suction; patient remains on alvimopan 12 mg twice daily -- Continue with IV fluids D5 half-normal saline with 20 mg of KCl at 125 cc an hour -- Reglan 10 mg IV every 6 hours as needed for nausea and vomiting 2. Hypertension; patient takes Norvasc 5 mg daily; blood pressure is currently stable; remains off of antihypertensive therapy 3. Osteoarthritis; patient takes Luxora at home which has been placed on hold DVT prophylaxis; SCDs/subcu heparin CODE STATUS; full code
--- NOTE | 2023-07-23 16:59 | P.PN ---
Subjective Progress Note Date: 07/23/23 62-year-old male with no significant past medical history who presented to the hospital on 06/04/2023 with a 2-week history of constipation, nausea, and vomiting. Patient has been to different ERs over the last several weeks and was diagnosed with constipatiom initially he was given enemas without much im provement. He then went to [facility] and had a CT done which he was told showed fecal impaction and he was sent home with enema. Upon arrival to ED on 06/04/2023, he was tachycardic and hypertensive. 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 He was admitted for bowel obstruction due to large sigmoid mass; patient underwent a decompressive colostomy on 06/04/23 -Patient is admitted to the hospital for sigmoid colectomy, takedown of splenic flexure, reversal of transverse colostomy and traverse of mucous fistula with appendectomy and lysis of adhesions and omentectomy; patient is POD #1 Objective - Vital Signs Vital signs: Vital Signs Temp 97.5 F L 07/23/23 06:49 Pulse 89 07/23/23 06:49 Resp 18 07/23/23 10:41 BP 120/79 07/23/23 06:49 Pulse Ox 97 07/23/23 06:49 FiO2 Intake & Output 07/22/23 07/23/23 07/23/23 18:59 06:59 18:59 Intake Total 2428 276.1 Output Total 390 900 Balance 2038 -900 276.1 Weight 59.5 kg Intake: IV 2428 Intake, IV Titration 26.1 Amount Ropivacaine 250 mg 26.1 Hydromorphone (Pf) 5 mg In Sodium Chloride 0.9% 200 ml @ Per Protocol EPIDURAL .Q0M PRN Rx#: [id number] Oral 250 Output: Urine 140 900 Estimated Blood Loss 250 Other: Voiding Method Indwelling Catheter Indwelling Catheter - Exam General appearance: Patient has NG tube in Eyes: Present: anicteric sclerae, EOMI, PERRLA, normal appearance Neck: Present: normal ROM. Absent: lymphadenopathy, rigidity, thyromegaly Thyroid: bilateral: normal size, negative: enlarged, nodule Respiratory: bilateral: CTA, negative: rales, rhonchi, wheezing Cardiovascular; regular;normal: S1, S2 Abnormal Heart Sounds: Absent: systolic murmur, diastolic murmur Gastrointestinal: Present: normal bowel sounds, soft. Absent: distended, organomegaly, tenderness Genitourinary Comment(s): deferred Integumentary: Present: normal turgor. Absent: jaundiced, rash, ulcer Neurologic: Present: CNII-XII intact. Absent: focal deficits Musculoskeletal: Present: gait normal, strength equal bilaterally Psychiatric: Present: A&O x's 3, appropriate affect, intact judgment & insight - Labs CBC & Chem 7: 07/22/23 14:34 07/22/23 14:34 Labs: Abnormal Lab Results - Last 24 Hours (Table) 07/22/23 07/22/23 Range/Units 14:34 14:34 WBC 13.2 H (3.8-10.6) k/uL RBC 3.77 L (4.30-5.90) m/uL Hgb 12.3 L (13.0-17.5) gm/dL Hct 37.3 L (39.0-53.0) % Neutrophils # 11.9 H (1.3-7.7) k/uL Lymphocytes # 0.4 L (1.0-4.8) k/uL Sodium 130 L (137-145) mmol/L Glucose 243 H (74-99) mg/dL Assessment and Plan Assessment: 1. Colon obstruction/mass; patient is status post sigmoid colectomy with takedown of splenic flexure, reversal of transverse colostomy, appendectomy, lysis of adhesion and omentectomy --POD #0 -- Patient has NG tube in place to suction; patient remains on alvimopan 12 mg twice daily -- Continue with IV fluids D5 half-normal saline with 20 mg of KCl at 125 cc an hour -- Reglan 10 mg IV every 6 hours as needed for nausea and vomiting 2. Hypertension; patient takes Norvasc 5 mg daily; blood pressure is currently stable; remains off of antihypertensive therapy 3. Osteoarthritis; patient takes [place] at home which has been placed on hold DVT prophylaxis; SCDs/subcu heparin CODE STATUS; full code
--- NOTE | 2023-07-24 01:26 | P.PN ---
Subjective Progress Note Date: 07/23/23 Principal diagnosis: s/p colostomy takedown POD#1 History of bowel obstruction due to large sigmoid mass; patient underwent a decompressive colostomy on 06/04/23 -Patient is admitted to the hospital for sigmoid colectomy, takedown of splenic flexure, reversal of transverse colostomy and traverse of mucous fistula with appendectomy and lysis of adhesions and omentectomy; patient is POD #2 Objective - Vital Signs Vital signs: Vital Signs Temp 98.7 F 07/23/23 20:07 Pulse 111 H 07/23/23 20:07 Resp 20 07/23/23 20:07 BP 116/82 07/23/23 20:07 Pulse Ox 96 07/23/23 20:07 FiO2 Intake & Output 07/23/23 07/23/23 07/24/23 06:59 18:59 06:59 Intake Total 276.1 Output Total 900 610 Balance -900 -333.9 Intake: Intake, IV Titration 26.1 Amount Ropivacaine 250 mg 26.1 Hydromorphone (Pf) 5 mg In Sodium Chloride 0.9% 200 ml @ Per Protocol EPIDURAL .Q0M PRN Rx#: [id number] Oral 250 Output: Urine 900 610 Other: Voiding Method Indwelling Catheter Indwelling Catheter Indwelling Catheter # Bowel Movements 0 - Labs CBC & Chem 7: 07/22/23 14:34 07/22/23 14:34 Assessment and Plan (1) Colonic mass Current Visit: No Status: Acute Code(s): K63.89 - OTHER SPECIFIED DISEASES OF INTESTINE SNOMED Code(s): 907858619 Plan: History of bowel obstruction due to large sigmoid mass; patient underwent a decompressive colostomy on 06/04/23 -Patient is admitted to the hospital for sigmoid colectomy, takedown of splenic flexure, reversal of transverse colostomy and traverse of mucous fistula with appendectomy and lysis of adhesions and omentectomy; patient is POD #2 Keep NPO, Hydrate, ambulate once cleared by anesthesia
--- NOTE | 2023-07-24 09:37 | P.PN ---
Subjective Progress Note Date: 07/24/23 patient is doing well. He has had minimal output through his NG tube. On exam vital signs appear stable. Abdomen is soft. Incisions clean dry tach. Status post reversal colostomy and sigmoid resection. Patient will receive supportive care. He'll remain nothing by mouth. Objective - Vital Signs Vital signs: Vital Signs Temp 98.6 F 07/24/23 07:29 Pulse 101 H 07/24/23 07:29 Resp 19 07/24/23 07:29 BP 122/88 07/24/23 07:29 Pulse Ox 96 07/24/23 07:29 FiO2 Intake & Output 07/23/23 07/24/23 07/24/23 18:59 06:59 18:59 Intake Total 276.1 420 Output Total 610 900 400 Balance -333.9 -480 -400 Intake: Intake, IV Titration 26.1 Amount Ropivacaine 250 mg 26.1 Hydromorphone (Pf) 5 mg In Sodium Chloride 0.9% 200 ml @ Per Protocol EPIDURAL .Q0M PRN Rx#: [id number] Oral 250 420 Output: Gastric Drainage 400 Urine 610 900 Other: Voiding Method Indwelling Catheter Indwelling Catheter # Bowel Movements 0 - Labs CBC & Chem 7: 07/22/23 14:34 07/22/23 14:34
[2023-07-24 12:23] LABS: Basophils % (A) 0 %; Eosinophils % (A) 0 %; HCT 36.1 % (39.0-53.0); HGB 11.6 gm/dL (13.0-17.5); Lymphocytes % (A) 8 %; MCH 31.8 pg (25.0-35.0); MCV 99.3 fL (80.0-100.0); Mean Platelet Volume 7.1; Monocytes # (A) 0.6 k/uL (0-1.0); Monocytes % (A) 5 %; Neutrophils # (A) 10.4 k/uL (1.3-7.7); Neutrophils % (A) 86 %; Platelet Count 343 k/uL (150-450); RBC 3.64 m/uL (4.30-5.90); RDW 12.5 % (11.5-15.5); WBC 12.1 k/uL (3.8-10.6)
[2023-07-24 12:42] LABS: African American GFR (CKD) >90 (>60 ml/min/1.73 sqM); Anion Gap 5 mmol/L; Blood Urea Nitrogen 10 mg/dL (9-20); Calcium 8.7 mg/dL (8.4-10.2); Carbon Dioxide 29 mmol/L (22-30); Chloride 98 mmol/L (98-107); Glucose 141 mg/dL (74-99); Non-African American GFR(CKD) >90 (>60 ml/min/1.73 sqM); Potassium 4.3 mmol/L (3.5-5.1); Sodium 132 mmol/L (137-145)
--- NOTE | 2023-07-24 15:08 | P.PN ---
Subjective Progress Note Date: 07/24/23 62-year-old male with no significant past medical history who presented to the hospital on 06/04/2023 with a 2-week history of constipation, nausea, and vomiting. Patient has been to different ERs over the last several weeks and was diagnosed with constipatiom initially he was given enemas without much im provement. He then went to [facility] and had a CT done which he was told showed fecal impaction and he was sent home with enema. Upon arrival to ED on 06/04/2023, he was tachycardic and hypertensive. 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 He was admitted for bowel obstruction due to large sigmoid mass; patient underwent a decompressive colostomy on 06/04/23 -Patient is admitted to the hospital for sigmoid colectomy, takedown of splenic flexure, reversal of transverse colostomy and traverse of mucous fistula with appendectomy and lysis of adhesions and omentectomy; patient is POD #1 07/24/2023 And is seen and evaluated sitting up in the bedside chair; NG tube has been removed; patient is n.p.o. with ice chips Vital signs reviewed and stable with temperature of 98.6, pulse 101, respiration 19 and blood pressure of 122/88 Lab review shows a WBC of 12.1 which is trended down from 13.2 yesterday, hemoglobin of 11.6 and platelet count of 343, sodium 132, potassium 4.3, BUNs/creatinine of 10/0.61 and blood glucose of 141 --Patient is status post reversal colostomy and sigmoid resection; general surgery on board and recommending to continue with keeping patient n.p.o. for now Objective - Vital Signs Vital signs: Vital Signs Temp 98.6 F 07/24/23 07:29 Pulse 101 H 07/24/23 10:53 Resp 19 07/24/23 10:53 BP 122/88 07/24/23 07:29 Pulse Ox 96 07/24/23 07:29 FiO2 Intake & Output 07/23/23 07/24/23 07/24/23 18:59 06:59 18:59 Intake Total 276.1 420 200.7 Output Total 610 900 825 Balance -333.9 -480 -624.3 Intake: Intake, IV Titration 26.1 200.7 Amount Ropivacaine 250 mg 26.1 200.7 Hydromorphone (Pf) 5 mg In Sodium Chloride 0.9% 200 ml @ Per Protocol EPIDURAL .Q0M PRN Rx#: [id number] Oral 250 420 Output: Gastric Drainage 400 Urine 610 900 425 Other: Voiding Method Indwelling Catheter Indwelling Catheter Indwelling Catheter # Bowel Movements 0 - Exam General appearance: Patient has NG tube in Eyes: Present: anicteric sclerae, EOMI, PERRLA, normal appearance Neck: Present: normal ROM. Absent: lymphadenopathy, rigidity, thyromegaly Thyroid: bilateral: normal size, negative: enlarged, nodule Respiratory: bilateral: CTA, negative: rales, rhonchi, wheezing Cardiovascular; regular;normal: S1, S2 Abnormal Heart Sounds: Absent: systolic murmur, diastolic murmur Gastrointestinal: Present: normal bowel sounds, soft. Absent: distended, organomegaly, tenderness Genitourinary Comment(s): deferred Integumentary: Present: normal turgor. Absent: jaundiced, rash, ulcer Neurologic: Present: CNII-XII intact. Absent: focal deficits Musculoskeletal: Present: gait normal, strength equal bilaterally Psychiatric: Present: A&O x's 3, appropriate affect, intact judgment & insight - Labs CBC & Chem 7: 07/24/23 11:58 07/24/23 11:58 Assessment and Plan Assessment: 1. Colon obstruction/mass; patient is status post sigmoid colectomy with takedown of splenic flexure, reversal of transverse colostomy, appendectomy, lysis of adhesion and omentectomy --POD #0 -- Patient has NG tube in place to suction; patient remains on alvimopan 12 mg twice daily -- Continue with IV fluids D5 half-normal saline with 20 mg of KCl at 125 cc an hour -- Reglan 10 mg IV every 6 hours as needed for nausea and vomiting 2. Hypertension; patient takes Norvasc 5 mg daily; blood pressure is currently stable; remains off of antihypertensive therapy 3. Osteoarthritis; patient takes [place] at home which has been placed on hold DVT prophylaxis; SCDs/subcu heparin CODE STATUS; full code
--- NOTE | 2023-07-24 15:14 | P.PN ---
Progress Note - Text Progress Note Date: 07/24/23 Postoperative day #2 status post sigmoid colectomy ,epidural catheter placed for postoperative analgesia, patient doing well epidural site okay, patient currently on combination of epidural infusion solution of Ropivacaine 0.0625% and Dilaudid 20 g per mL the infusion rate at 9 ml per hour , patient had no motor deficit epidural site okay , vital signs stable ,VAS 4/10 , Assessment and plan= post operative day#2 patient doing well ,pain well controlled , there is no anesthesia related complications
--- NOTE | 2023-07-25 06:47 | P.PN ---
Progress Note - Text Progress Note Date: 07/25/23 Postoperative day #3 status post sigmoid colectomy ,epidural catheter placed for postoperative analgesia, patient doing well epidural site okay, patient currently on combination of epidural infusion solution of Ropivacaine 0.0625% and Dilaudid 20 g per mL the infusion rate at 9 ml per hour , patient had no motor deficit epidural site okay , vital signs stable ,VAS 5/10 , Assessment and plan= post operative day#3 patient doing well ,pain controlled , there is no anesthesia related complications
--- NOTE | 2023-07-25 11:04 | P.PN ---
Subjective 62-year-old male with no significant past medical history who presented to the hospital on 06/04/2023 with a 2-week history of constipation, nausea, and vomiting. Patient has been to different ERs over the last several weeks and was diagnosed with constipatiom initially he was given enemas without much improvement. He then went to [facility] and had a CT done which he was told showed fecal impaction and he was sent home with enema. Upon arrival to ED on 06/04/2023, he was tachycardic and hypertensive. 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 He was admitted for bowel obstruction due to large sigmoid mass; patient underwent a decompressive colostomy on 06/04/23 -Patient is admitted to the hospital for sigmoid colectomy, takedown of splenic flexure, reversal of transverse colostomy and traverse of mucous fistula with appendectomy and lysis of adhesions and omentectomy; patient is POD #1 07/24/2023 And is seen and evaluated sitting up in the bedside chair; NG tube has been removed; patient is n.p.o. with ice chips Vital signs reviewed and stable with temperature of 98.6, pulse 101, respiration 19 and blood pressure of 122/88 Lab review shows a WBC of 12.1 which is trended down from 13.2 yesterday, hemoglobin of 11.6 and platelet count of 343, sodium 132, potassium 4.3, BUNs/creatinine of 10/0.61 and blood glucose of 141 --Patient is status post reversal colostomy and sigmoid resection; general surgery on board and recommending to continue with keeping patient n.p.o. for now 07/25/2023 Patient is awake alert and oriented He is calm in bed. He still n.p.o. but there is no NG tube in place He has a vertical surgical abdominal wound with dressing in place, wound VAC in place as well Patient denies chest pain or dyspnea. He is mildly tachycardic, afebrile blood pressure is acceptable He has mild leukocytosis of 12,000, hemoglobin 11.6 He is on D5 half-normal saline at 125 mL/h Objective - Vital Signs Vital signs: Vital Signs Temp 98.5 F 07/25/23 07:53 Pulse 101 H 07/25/23 07:53 Resp 18 07/25/23 07:53 BP 112/75 07/25/23 07:53 Pulse Ox 96 07/25/23 07:53 FiO2 Intake & Output 07/24/23 07/25/23 07/25/23 18:59 06:59 18:59 Intake Total 200.7 800 203.7 Output Total 1175 500 Balance -974.3 300 203.7 Intake: Intake, IV Titration 200.7 203.7 Amount Ropivacaine 250 mg 200.7 203.7 Hydromorphone (Pf) 5 mg In Sodium Chloride 0.9% 200 ml @ Per Protocol EPIDURAL .Q0M PRN Rx#: [id number] Oral 800 Output: Gastric Drainage 400 Urine 775 500 Other: Voiding Method Indwelling Catheter Indwelling Catheter - Exam GENERAL: The patient is alert and oriented x3, not in any acute distress. Well developed, well nourished. HEENT: Pupils are round and equally reacting to light. EOMI. No scleral icterus. No conjunctival pallor. Normocephalic, atraumatic. No pharyngeal erythema. No thyromegaly. CARDIOVASCULAR: S1 and S2 present. No murmurs, rubs, or gallops. PULMONARY: Chest is clear to auscultation, no wheezing , no crackles. -ABDOMEN: Soft, nontender, nondistended, normoactive bowel sounds. No palpable organomegaly. vertical surgical abdominal wound with dressing in place, wound VAC in place MUSCULOSKELETAL: No joint swelling or deformity. EXTREMITIES: No cyanosis, clubbing, or pedal edema. NEUROLOGICAL: Gross neurological examination did not reveal any focal deficits. SKIN: No rashes. no petechiae. - Labs CBC & Chem 7: 07/24/23 11:58 07/24/23 11:58 Labs: Abnormal Lab Results - Last 24 Hours (Table) 07/24/23 07/24/23 Range/Units 11:58 11:58 WBC 12.1 H (3.8-10.6) k/uL RBC 3.64 L (4.30-5.90) m/uL Hgb 11.6 L (13.0-17.5) gm/dL Hct 36.1 L (39.0-53.0) % Neutrophils # 10.4 H (1.3-7.7) k/uL Sodium 132 L (137-145) mmol/L Creatinine 0.61 L (0.66-1.25) mg/dL Glucose 141 H (74-99) mg/dL Assessment and Plan Assessment: 1. Colon obstruction/mass; patient is status post sigmoid colectomy with takedown of splenic flexure, reversal of transverse colostomy, appendectomy, lysis of adhesion and omentectomy --POD #0 -- Patient has NG tube in place to suction; patient remains on alvimopan 12 mg twice daily -- Continue with IV fluids D5 half-normal saline with 20 mg of KCl at 125 cc an hour -- Reglan 10 mg IV every 6 hours as needed for nausea and vomiting 2. Hypertension; patient takes Norvasc 5 mg daily; blood pressure is currently stable; remains off of antihypertensive therapy 3. Osteoarthritis; patient takes [place] at home which has been placed on hold DVT prophylaxis; SCDs/subcu heparin CODE STATUS; full code
[2023-07-25 11:55] LABS: Basophils # (A) 0.01 X 10*3/uL (0.00-0.10); Basophils % (A) 0.1 %; Eosinophils # (A) 0.09 X 10*3/uL (0.04-0.35); Eosinophils % (A) 0.8 %; HCT 31.1 % (39.6-50.0); HGB 10.4 g/dL (13.0-17.0); Lymphocytes # (A) 1.24 X 10*3/uL (0.90-5.00); Lymphocytes % (A) 10.7 %; MCH 31.8 pg (27.0-32.0); MCHC 33.4 g/dL (32.0-37.0); MCV 95.1 FL (80.0-97.0); Mean Platelet Volume 9.3 FL (9.5-12.2); Monocytes # (A) 0.96 X 10*3/uL (0.20-1.00); Monocytes % (A) 8.3 %; NRBC Per 100 WBC 0 X 10*3/uL (0.00-0.01); Neutrophils # (A) 9.29 X 10*3/uL (1.80-7.70); Neutrophils % (A) 79.8 %; Platelet Count 339 X 10*3/uL (140-440); RBC 3.27 X 10*6/uL (4.40-5.60); RDW 12.5 % (11.5-14.5); WBC 11.62 X 10*3/uL (4.50-10.00)
[2023-07-25 12:08] LABS: BUN/Creat Ratio 9.67 Ratio (12.00-20.00); Blood Urea Nitrogen 5.8 mg/dL (9.0-27.0); Calcium 8.6 mg/dL (8.7-10.3); Carbon Dioxide 29.6 mmol/L (21.6-31.8); Chloride 99 mmol/L (96-109); Glucose 130 mg/dL (70-110); Potassium 4.2 mmol/L (3.5-5.5); Sodium 135 mmol/L (135-145)
--- NOTE | 2023-07-25 17:29 | P.PN ---
Subjective Progress Note Date: 07/25/23 the patient had his nasogastric tube removed yesterday. He's had some flatus since then. On exam vital signs appear stable. Abdomen is soft incision is clean dry intact. Status post sigmoid resection with takedown of colostomy mucous fistula. Patient will remain nothing by mouth until he has significant bowel function. He'll continue receive supportive care. Objective - Vital Signs Vital signs: Vital Signs Temp 98.1 F 07/25/23 14:02 Pulse 91 07/25/23 14:02 Resp 18 07/25/23 14:02 BP 113/70 07/25/23 14:02 Pulse Ox 96 07/25/23 14:02 FiO2 Intake & Output 07/24/23 07/25/23 07/25/23 18:59 06:59 18:59 Intake Total 200.7 800 203.7 Output Total 1175 500 400 Balance -974.3 300 -196.3 Intake: Intake, IV Titration 200.7 203.7 Amount Ropivacaine 250 mg 200.7 203.7 Hydromorphone (Pf) 5 mg In Sodium Chloride 0.9% 200 ml @ Per Protocol EPIDURAL .Q0M PRN Rx#: [id number] Oral 800 Output: Gastric Drainage 400 Urine 775 500 400 Other: Voiding Method Indwelling Catheter Indwelling Catheter - Labs CBC & Chem 7: 07/25/23 06:28 07/25/23 06:28 Labs: Abnormal Lab Results - Last 24 Hours (Table) 07/25/23 07/25/23 Range/Units 06:28 06:28 WBC 11.62 H (4.50-10.00) X 10*3/uL RBC 3.27 L (4.40-5.60) X 10*6/uL Hgb 10.4 L (13.0-17.0) g/dL Hct 31.1 L (39.6-50.0) % MPV 9.3 L (9.5-12.2) FL Neutrophils # 9.29 H (1.80-7.70) X 10*3/uL BUN 5.8 L (9.0-27.0) mg/dL BUN/Creatinine Ratio 9.67 L (12.00-20.00) Ratio Glucose 130 H (70-110) mg/dL Calcium 8.6 L (8.7-10.3) mg/dL
--- NOTE | 2023-07-26 12:27 | P.PN ---
Subjective 62-year-old male with no significant past medical history who presented to the hospital on 06/04/2023 with a 2-week history of constipation, nausea, and vomiting. Patient has been to different ERs over the last several weeks and was diagnosed with constipatiom initially he was given enemas without much improvement. He then went to [facility] and had a CT done which he was told showed fecal impaction and he was sent home with enema. Upon arrival to ED on 06/04/2023, he was tachycardic and hypertensive. 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 He was admitted for bowel obstruction due to large sigmoid mass; patient underwent a decompressive colostomy on 06/04/23 -Patient is admitted to the hospital for sigmoid colectomy, takedown of splenic flexure, reversal of transverse colostomy and traverse of mucous fistula with appendectomy and lysis of adhesions and omentectomy; patient is POD #1 07/24/2023 And is seen and evaluated sitting up in the bedside chair; NG tube has been removed; patient is n.p.o. with ice chips Vital signs reviewed and stable with temperature of 98.6, pulse 101, respiration 19 and blood pressure of 122/88 Lab review shows a WBC of 12.1 which is trended down from 13.2 yesterday, hemoglobin of 11.6 and platelet count of 343, sodium 132, potassium 4.3, BUNs/creatinine of 10/0.61 and blood glucose of 141 --Patient is status post reversal colostomy and sigmoid resection; general surgery on board and recommending to continue with keeping patient n.p.o. for now 07/25/2023 Patient is awake alert and oriented He is calm in bed. He still n.p.o. but there is no NG tube in place He has a vertical surgical abdominal wound with dressing in place, wound VAC in place as well Patient denies chest pain or dyspnea. He is mildly tachycardic, afebrile blood pressure is acceptable He has mild leukocytosis of 12,000, hemoglobin 11.6 He is on D5 half-normal saline at 125 mL/h 07/26/2023 Patient awake noting distress Patient is getting ice chips only, still n.p.o. No bowel movement yet Abdominal pain is controlled He remains on gentle hydration with D5 half-normal saline at 125 mL/h Objective - Vital Signs Vital signs: Vital Signs Temp 98.3 F 07/26/23 07:30 Pulse 89 07/26/23 07:30 Resp 19 07/26/23 07:30 BP 106/73 07/26/23 07:30 Pulse Ox 95 07/26/23 07:30 FiO2 Intake & Output 07/25/23 07/26/23 07/26/23 18:59 06:59 18:59 Intake Total 203.7 214.35 Output Total 400 1600 Balance -196.3 -1600 214.35 Intake: Intake, IV Titration 203.7 214.35 Amount Ropivacaine 250 mg 203.7 214.35 Hydromorphone (Pf) 5 mg In Sodium Chloride 0.9% 200 ml @ Per Protocol EPIDURAL .Q0M PRN Rx#: [id number] Output: Urine 400 1600 Other: Voiding Method Indwelling Catheter - Exam GENERAL: The patient is alert and oriented x3, not in any acute distress. Well developed, well nourished. HEENT: Pupils are round and equally reacting to light. EOMI. No scleral icterus. No conjunctival pallor. Normocephalic, atraumatic. No pharyngeal erythema. No thyromegaly. CARDIOVASCULAR: S1 and S2 present. No murmurs, rubs, or gallops. PULMONARY: Chest is clear to auscultation, no wheezing , no crackles. -ABDOMEN: Soft, nontender, nondistended, normoactive bowel sounds. No palpable organomegaly. vertical surgical abdominal wound with dressing in place, wound VAC in place MUSCULOSKELETAL: No joint swelling or deformity. EXTREMITIES: No cyanosis, clubbing, or pedal edema. NEUROLOGICAL: Gross neurological examination did not reveal any focal deficits. SKIN: No rashes. no petechiae. - Labs CBC & Chem 7: 07/25/23 06:28 07/25/23 06:28 Assessment and Plan Assessment: 1. Colon obstruction/mass; patient is status post sigmoid colectomy with takedown of splenic flexure, reversal of transverse colostomy, appendectomy, lysis of adhesion and omentectomy --POD #0 -- Patient has NG tube in place to suction; patient remains on alvimopan 12 mg t wice daily -- Continue with IV fluids D5 half-normal saline with 20 mg of KCl at 125 cc an hour -- Reglan 10 mg IV every 6 hours as needed for nausea and vomiting 2. Hypertension; patient takes Norvasc 5 mg daily; blood pressure is currently stable; remains off of antihypertensive therapy 3. Osteoarthritis; patient takes [place] at home which has been placed on hold DVT prophylaxis; SCDs/subcu heparin CODE STATUS; full code
--- NOTE | 2023-07-26 16:32 | P.PN ---
Subjective Progress Note Date: 07/26/23 CHIEF COMPLAINT: Colon obstruction HISTORY OF PRESENT ILLNESS: Patient is postop day #4 status post sigmoid colectomy, takedown splenic flexure, reversal of transverse colostomy, reversal of mucous fistula, appendectomy, lysis of adhesions and omentectomy. His pain is controlled. He has epidural in place. Denies any nausea or vomiting. Denies any bowel activity. Afebrile. WBC 11.62 as of yesterday PHYSICAL EXAM: VITAL SIGNS: Reviewed. GENERAL: Well-developed in no acute distress. HEENT: No sclera icterus. Extraocular movements grossly intact. Moist buccal mucosa. Head is atraumatic, normocephalic. ABDOMEN: Soft. Nondistended. Nontender. NEUROLOGIC: Alert and oriented. Cranial nerves II through XII grossly intact. ASSESSMENT: 1. History of colonic obstruction PLAN: -Epidural and [place] catheter to be discontinued today -IV Dilaudid 1 mg every 3 hours as needed for pain control -Consult physical therapy to help ambulate patient -Continue IV fluids -Keep patient n.p.o. until he has significant bowel function -DVT prophylaxis subcu heparin Physician User Interface Artist note has been reviewed by physician. Signing provider agrees with the documented findings, assessment, and plan of care. Objective - Vital Signs Vital signs: Vital Signs Temp 98.2 F 07/26/23 15:56 Pulse 86 07/26/23 15:56 Resp 18 07/26/23 15:56 BP 133/83 07/26/23 15:56 Pulse Ox 97 07/26/23 15:56 FiO2 Intake & Output 07/25/23 07/26/23 07/26/23 18:59 06:59 18:59 Intake Total 203.7 214.35 Output Total 400 1600 Balance -196.3 -1600 214.35 Intake: Intake, IV Titration 203.7 214.35 Amount Ropivacaine 250 mg 203.7 214.35 Hydromorphone (Pf) 5 mg In Sodium Chloride 0.9% 200 ml @ Per Protocol EPIDURAL .Q0M PRN Rx#: [id number] Output: Urine 400 1600 Other: Voiding Method Indwelling Catheter - Labs CBC & Chem 7: 07/25/23 06:28 07/25/23 06:28
[2023-07-26] MEDS: HYDROmorphone 1 MG/ML 1 ML SYRINGE IVP PRN (20:51)
[2023-07-26] MEDS: ONDANSETRON 4 MG/2 ML VIAL IVP PRN (23:41)
[2023-07-27] MEDS: ZINC OXIDE PASTE (Z-GUARD) 1 APPLIC TOPICAL PRN (02:05)
[2023-07-27 08:25] LABS: Basophils # (A) 0.01 X 10*3/uL (0.00-0.10); Basophils % (A) 0.1 %; Eosinophils # (A) 0.09 X 10*3/uL (0.04-0.35); Eosinophils % (A) 1.1 %; HCT 29.4 % (39.6-50.0); HGB 10.1 g/dL (13.0-17.0); Lymphocytes # (A) 1.35 X 10*3/uL (0.90-5.00); Lymphocytes % (A) 16.4 %; MCH 32.2 pg (27.0-32.0); MCHC 34.4 g/dL (32.0-37.0); MCV 93.6 FL (80.0-97.0); Mean Platelet Volume 9.3 FL (9.5-12.2); Monocytes # (A) 0.98 X 10*3/uL (0.20-1.00); Monocytes % (A) 11.9 %; NRBC Per 100 WBC 0 X 10*3/uL (0.00-0.01); Neutrophils # (A) 5.76 X 10*3/uL (1.80-7.70); Neutrophils % (A) 70.3 %; Platelet Count 383 X 10*3/uL (140-440); RBC 3.14 X 10*6/uL (4.40-5.60); RDW 12.3 % (11.5-14.5); WBC 8.21 X 10*3/uL (4.50-10.00)
[2023-07-27 08:39] LABS: BUN/Creat Ratio 6.33 Ratio (12.00-20.00); Blood Urea Nitrogen 3.8 mg/dL (9.0-27.0); Calcium 8.8 mg/dL (8.7-10.3); Carbon Dioxide 27.4 mmol/L (21.6-31.8); Chloride 102 mmol/L (96-109); Glucose 133 mg/dL (70-110); Potassium 4.3 mmol/L (3.5-5.5); Sodium 139 mmol/L (135-145)
--- NOTE | 2023-07-27 10:33 | P.PN ---
Subjective 62-year-old male with no significant past medical history who presented to the hospital on 06/04/2023 with a 2-week history of constipation, nausea, and vomiting. Patient has been to different ERs over the last several weeks and was diagnosed with constipatiom initially he was given enemas without much improvement. He then went to [facility] and had a CT done which he was told showed fecal impaction and he was sent home with enema. Upon arrival to ED on 06/04/2023, he was tachycardic and hypertensive. 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 He was admitted for bowel obstruction due to large sigmoid mass; patient underwent a decompressive colostomy on 06/04/23 -Patient is admitted to the hospital for sigmoid colectomy, takedown of splenic flexure, reversal of transverse colostomy and traverse of mucous fistula with appendectomy and lysis of adhesions and omentectomy; patient is POD #1 07/24/2023 And is seen and evaluated sitting up in the bedside chair; NG tube has been removed; patient is n.p.o. with ice chips Vital signs reviewed and stable with temperature of 98.6, pulse 101, respiration 19 and blood pressure of 122/88 Lab review shows a WBC of 12.1 which is trended down from 13.2 yesterday, hemoglobin of 11.6 and platelet count of 343, sodium 132, potassium 4.3, BUNs/creatinine of 10/0.61 and blood glucose of 141 --Patient is status post reversal colostomy and sigmoid resection; general surgery on board and recommending to continue with keeping patient n.p.o. for now 07/25/2023 Patient is awake alert and oriented He is calm in bed. He still n.p.o. but there is no NG tube in place He has a vertical surgical abdominal wound with dressing in place, wound VAC in place as well Patient denies chest pain or dyspnea. He is mildly tachycardic, afebrile blood pressure is acceptable He has mild leukocytosis of 12,000, hemoglobin 11.6 He is on D5 half-normal saline at 125 mL/h 07/26/2023 Patient awake noting distress Patient is getting ice chips only, still n.p.o. No bowel movement yet Abdominal pain is controlled He remains on gentle hydration with D5 half-normal saline at 125 mL/h 07/27/2023 patient sitting in chair but does not look in distress. His abdominal pain controlled Staffing patient has little bowel movement but patient does not believe so. No vomiting Hemodynamically stable Continue with Reglan and gentle hydration with half normal saline Objective - Vital Signs Vital signs: Vital Signs Temp 99.0 F 07/27/23 07:38 Pulse 93 07/27/23 07:38 Resp 17 07/27/23 07:38 BP 129/76 07/27/23 07:38 Pulse Ox 95 07/27/23 07:38 FiO2 Intake & Output 07/26/23 07/27/23 07/27/23 18:59 06:59 18:59 Intake Total 214.35 Output Total 500 1900 Balance -285.65 -1900 Intake: Intake, IV Titration 214.35 Amount Ropivacaine 250 mg 214.35 Hydromorphone (Pf) 5 mg In Sodium Chloride 0.9% 200 ml @ Per Protocol EPIDURAL .Q0M PRN Rx#: [id number] Output: Urine 500 1900 Uretheral (Reyes) 500 Other: Voiding Method Toilet Toilet Urinal Urinal # Voids 1 # Bowel Movements 1 - Exam GENERAL: The patient is alert and oriented x3, not in any acute distress. Well developed, well nourished. HEENT: Pupils are round and equally reacting to light. EOMI. No scleral icterus. No conjunctival pallor. Normocephalic, atraumatic. No pharyngeal erythema. No thyromegaly. CARDIOVASCULAR: S1 and S2 present. No murmurs, rubs, or gallops. PULMONARY: Chest is clear to auscultation, no wheezing , no crackles. -ABDOMEN: Soft, nontender, nondistended, normoactive bowel sounds. No palpable organomegaly. vertical surgical abdominal wound with dressing in place, wound VAC in place MUSCULOSKELETAL: No joint swelling or deformity. EXTREMITIES: No cyanosis, clubbing, or pedal edema. NEUROLOGICAL: Gross neurological examination did not reveal any focal deficits. SKIN: No rashes. no petechiae. - Labs CBC & Chem 7: 07/27/23 05:51 07/27/23 05:51 Labs: Abnormal Lab Results - Last 24 Hours (Table) 07/27/23 07/27/23 Range/Units 05:51 05:51 RBC 3.14 L (4.40-5.60) X 10*6/uL Hgb 10.1 L (13.0-17.0) g/dL Hct 29.4 L (39.6-50.0) % MCH 32.2 H (27.0-32.0) pg MPV 9.3 L (9.5-12.2) FL BUN 3.8 L (9.0-27.0) mg/dL BUN/Creatinine Ratio 6.33 L (12.00-20.00) Ratio Glucose 133 H (70-110) mg/dL Assessment and Plan Assessment: 1. Colon obstruction/mass; patient is status post sigmoid colectomy with takedown of splenic flexure, reversal of transverse colostomy, appendectomy, lysis of adhesion and omentectomy --POD #0 -- Patient has NG tube in place to suction; patient remains on alvimopan 12 mg twice daily -- Continue with IV fluids D5 half-normal saline with 20 mg of KCl at 125 cc an hour -- Reglan 10 mg IV every 6 hours as needed for nausea and vomiting 2. Hypertension; patient takes Norvasc 5 mg daily; blood pressure is currently stable; remains off of antihypertensive therapy 3. Osteoarthritis; patient takes [place] at home which has been placed on hold DVT prophylaxis; SCDs/subcu heparin CODE STATUS; full code
--- NOTE | 2023-07-27 14:38 | P.PN ---
Subjective Progress Note Date: 07/27/23 CHIEF COMPLAINT: Colon obstruction HISTORY OF PRESENT ILLNESS: Patient is postop day #5 status post sigmoid colectomy, takedown splenic flexure, reversal of transverse colostomy, reversal of mucous fistula, appendectomy, lysis of adhesions and omentectomy. Epidural and Reyes catheter removed yesterday. He had a small BM. Small amount of flatus. Did have nausea earlier. No vomiting. Pain is controlled. Afebrile. WBC is down from 11-8.21 Hgb 10.1 PHYSICAL EXAM: VITAL SIGNS: Reviewed. GENERAL: Well-developed in no acute distress. HEENT: No sclera icterus. Extraocular movements grossly intact. Moist buccal mucosa. Head is atraumatic, normocephalic. ABDOMEN: Soft. Nondistended. mild tenderness at incision site. Prevana wound vac intact NEUROLOGIC: Alert and oriented. Cranial nerves II through XII grossly intact. ASSESSMENT: 1. History of colonic obstruction PLAN: -Continue pain management -Continue IV fluids -Encourage patient to increase activity level -Encourage patient to use incentive spirometer -Keep patient n.p.o. until he has significant bowel function -DVT prophylaxis subcu heparin Physician Manager Inventory Control note has been reviewed by physician. Signing provider agrees with the documented findings, assessment, and plan of care. Objective - Vital Signs Vital signs: Vital Signs Temp 97.9 F 07/27/23 14:00 Pulse 91 07/27/23 14:00 Resp 17 07/27/23 14:00 BP 141/94 07/27/23 14:00 Pulse Ox 98 07/27/23 14:00 FiO2 Intake & Output 07/26/23 07/27/23 07/27/23 18:59 06:59 18:59 Intake Total 214.35 Output Total 500 1900 Balance -285.65 -1900 Intake: Intake, IV Titration 214.35 Amount Ropivacaine 250 mg 214.35 Hydromorphone (Pf) 5 mg In Sodium Chloride 0.9% 200 ml @ Per Protocol EPIDURAL .Q0M PRN Rx#: [id number] Output: Urine 500 1900 Uretheral (Reyes) 500 Other: Voiding Method Toilet Toilet Urinal Urinal # Voids 1 # Bowel Movements 1 - Labs CBC & Chem 7: 07/27/23 05:51 07/27/23 05:51 Labs: Abnormal Lab Results - Last 24 Hours (Table) 07/27/23 07/27/23 Range/Units 05:51 05:51 RBC 3.14 L (4.40-5.60) X 10*6/uL Hgb 10.1 L (13.0-17.0) g/dL Hct 29.4 L (39.6-50.0) % MCH 32.2 H (27.0-32.0) pg MPV 9.3 L (9.5-12.2) FL BUN 3.8 L (9.0-27.0) mg/dL BUN/Creatinine Ratio 6.33 L (12.00-20.00) Ratio Glucose 133 H (70-110) mg/dL
--- NOTE | 2023-07-28 09:27 | P.PN ---
Subjective 62-year-old male with no significant past medical history who presented to the hospital on 06/04/2023 with a 2-week history of constipation, nausea, and vomiting. Patient has been to different ERs over the last several weeks and was diagnosed with constipatiom initially he was given enemas without much improvement. He then went to [facility] and had a CT done which he was told showed fecal impaction and he was sent home with enema. Upon arrival to ED on 06/04/2023, he was tachycardic and hypertensive. 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 He was admitted for bowel obstruction due to large sigmoid mass; patient underwent a decompressive colostomy on 06/04/23 -Patient is admitted to the hospital for sigmoid colectomy, takedown of splenic flexure, reversal of transverse colostomy and traverse of mucous fistula with appendectomy and lysis of adhesions and omentectomy; patient is POD #1 07/24/2023 And is seen and evaluated sitting up in the bedside chair; NG tube has been removed; patient is n.p.o. with ice chips Vital signs reviewed and stable with temperature of 98.6, pulse 101, respiration 19 and blood pressure of 122/88 Lab review shows a WBC of 12.1 which is trended down from 13.2 yesterday, hemoglobin of 11.6 and platelet count of 343, sodium 132, potassium 4.3, BUNs/creatinine of 10/0.61 and blood glucose of 141 --Patient is status post reversal colostomy and sigmoid resection; general surgery on board and recommending to continue with keeping patient n.p.o. for now 07/25/2023 Patient is awake alert and oriented He is calm in bed. He still n.p.o. but there is no NG tube in place He has a vertical surgical abdominal wound with dressing in place, wound VAC in place as well Patient denies chest pain or dyspnea. He is mildly tachycardic, afebrile blood pressure is acceptable He has mild leukocytosis of 12,000, hemoglobin 11.6 He is on D5 half-normal saline at 125 mL/h 07/26/2023 Patient awake noting distress Patient is getting ice chips only, still n.p.o. No bowel movement yet Abdominal pain is controlled He remains on gentle hydration with D5 half-normal saline at 125 mL/h 07/27/2023 patient sitting in chair but does not look in distress. His abdominal pain controlled Staffing patient has little bowel movement but patient does not believe so. No vomiting Hemodynamically stable Continue with Reglan and gentle hydration with half normal saline 07/28/2023 This morning patient still n.p.o. He still has no bowel movement yet His abdomen looks soft with no significant tenderness Is still on IV fluids Objective - Vital Signs Vital signs: Vital Signs Temp 98.5 F 07/28/23 07:00 Pulse 78 07/28/23 07:00 Resp 18 07/28/23 07:00 BP 123/75 07/28/23 07:00 Pulse Ox 96 07/28/23 07:00 FiO2 Intake & Output 07/27/23 07/28/23 07/28/23 18:59 06:59 18:59 Other: Voiding Method Toilet Toilet Urinal # Voids 2 7 - Exam GENERAL: The patient is alert and oriented x3, not in any acute distress. Well developed, well nourished. HEENT: Pupils are round and equally reacting to light. EOMI. No scleral icterus. No conjunctival pallor. Normocephalic, atraumatic. No pharyngeal erythema. No thyromegaly. CARDIOVASCULAR: S1 and S2 present. No murmurs, rubs, or gallops. PULMONARY: Chest is clear to auscultation, no wheezing , no crackles. -ABDOMEN: Soft, nontender, nondistended, normoactive bowel sounds. No palpable organomegaly. vertical surgical abdominal wound with dressing in place, wound VAC in place MUSCULOSKELETAL: No joint swelling or deformity. EXTREMITIES: No cyanosis, clubbing, or pedal edema. NEUROLOGICAL: Gross neurological examination did not reveal any focal deficits. SKIN: No rashes. no petechiae. - Labs CBC & Chem 7: 07/27/23 05:51 07/27/23 05:51 Assessment and Plan Assessment: 1. Colon obstruction/mass; patient is status post sigmoid colectomy with takedown of splenic flexure, reversal of transverse colostomy, appendectomy, lysis of adhesion and omentectomy --POD #0 -- Patient has NG tube in place to suction; patient remains on alvimopan 12 mg twice daily -- Continue with IV fluids D5 half-normal saline with 20 mg of KCl at 125 cc an hour -- Reglan 10 mg IV every 6 hours as needed for nausea and vomiting 2. Hypertension; patient takes Norvasc 5 mg daily; blood pressure is currently stable; remains off of antihypertensive therapy 3. Osteoarthritis; patient takes [place] at home which has been placed on hold DVT prophylaxis; SCDs/subcu heparin CODE STATUS; full code
[2023-07-28 14:22] VITALS: BMI 22.5
--- NOTE | 2023-07-28 15:02 | P.PN ---
Subjective Progress Note Date: 07/28/23 CHIEF COMPLAINT: Colon obstruction HISTORY OF PRESENT ILLNESS: Patient is postop day #6 status post sigmoid colectomy, takedown splenic flexure, reversal of transverse colostomy, reversal of mucous fistula, appendectomy, lysis of adhesions and omentectomy. Patient reports his pain is controlled. He is passing minimal flatus. No significant bowel movement. Denies any nausea or vomiting. Afebrile. PHYSICAL EXAM: VITAL SIGNS: Reviewed. GENERAL: Well-developed in no acute distress. HEENT: No sclera icterus. Extraocular movements grossly intact. Moist buccal mucosa. Head is atraumatic, normocephalic. ABDOMEN: Soft. Nondistended. mild tenderness at incision site. Prevana wound vac intact. Mild shadowing noted on the wound VAC dressing NEUROLOGIC: Alert and oriented. Cranial nerves II through XII grossly intact. ASSESSMENT: 1. History of colonic obstruction PLAN: -Order placed for PICC line for TPN -Consult dietitian for TPN for nutrition support -Continue pain management -Continue IV fluids -Encourage patient to increase activity level -Encourage patient to use incentive spirometer -Keep patient n.p.o. until he has significant bowel function -DVT prophylaxis subcu heparin Physician Land Title Examiner note has been reviewed by physician. Signing provider agrees with the documented findings, assessment, and plan of care. I have personally seen and examined the patient, reviewed the DIESEL STATIONARY ENGINEER /PAs history, exam and MDM and agree with the assessment and plan as written. Based on total visit time, I have performed more than 50% of the visit. As above: Patient says he feels fairly well today. Minimal flatus. No bowel movement. Some belching. Agree with plans for TPN if n.p.o. status persist. Continue ambulation. Reevaluate tomorrow. Objective - Vital Signs Vital signs: Vital Signs Temp 98.7 F 07/28/23 13:07 Pulse 94 07/28/23 13:07 Resp 18 07/28/23 13:07 BP 154/83 07/28/23 13:07 Pulse Ox 98 07/28/23 13:07 FiO2 Intake & Output 07/27/23 07/28/23 07/28/23 18:59 06:59 18:59 Weight 59.5 kg Other: Voiding Method Toilet Toilet Urinal # Voids 2 7 - Labs CBC & Chem 7: 07/27/23 05:51 07/28/23 17:17
[2023-07-28 17:57] LABS: ALT 21 U/L (4-49); AST 28 U/L (17-59); African American GFR (CKD) >90 (>60 ml/min/1.73 sqM); Albumin 3.1 g/dL (3.5-5.0); Alkaline Phosphatase 83 U/L (38-126); Anion Gap 6 mmol/L; Blood Urea Nitrogen 4 mg/dL (9-20); Calcium 9.3 mg/dL (8.4-10.2); Carbon Dioxide 27 mmol/L (22-30); Chloride 101 mmol/L (98-107); Globulin 3.1 g/dL; Glucose 132 mg/dL (74-99); Magnesium 1.7 mg/dL (1.6-2.3); Non-African American GFR(CKD) >90 (>60 ml/min/1.73 sqM); Phosphorus 3.7 mg/dL (2.5-4.5); Potassium 4.1 mmol/L (3.5-5.1); Sodium 134 mmol/L (137-145); Total Bilirubin 0.6 mg/dL (0.2-1.3); Total Protein 6.2 g/dL (6.3-8.2)
[2023-07-28] MEDS: MVI, ADULT NO.4 WITH VIT K 10 ML, TRACE (CONC-1ML/DOSE) 1 ML in AMINO ACID 5%-D20W+LYTE... IV SCH (19:53)
[2023-07-29] MEDS ORDERED: LIDOCAINE 1% INJ 10MG/ML (20 ML MDV) ONE (07:18)
[2023-07-29] MEDS: LIDOCAINE 1% INJ 10MG/ML (20 ML MDV) SQ ONE (07:54)
--- NOTE | 2023-07-29 08:29 | P.PCN ---
Date of Procedure: 07/29/23 Preoperative Diagnosis: Colon obstruction, recent colon resection, need for TPN Postoperative Diagnosis: Same Procedure(s) Performed: Right upper extremity basilic vein PICC line placement under ultrasound and fluoroscopic guidance Anesthesia: local Surgeon: Nabil Vicente Estimated Blood Loss (ml): 2 Pathology: none sent Condition: stable Disposition: floor Indications for Procedure: 62-year-old gentleman with recent colon resection due to obstruction is in need of TPN and presents for placement of PICC line. Description of Procedure: After written and informed consent was obtained the patient and all risks, benefits and competitions were described the patient was brought to the Ssrs Report Developer and laid in a supine position with his right arm outstretched on an armboard. The area of the right arm was prepped and draped in usual sterile fashion. T imeout was performed in normal fashion. Utilizing ultrasound the basilic vein was visualized and shown to be compressible without any visible thrombus. Under ultrasound guidance the basilic vein was then cannulated with a micropuncture needle and wire was placed under direct visualization of fluoroscopy. Introducer sheath was then placed. The catheter was measured and cut to the appropriate length which was 41 cm. The catheter was then guided through the breakaway sheath and the sheath was removed with good positioning was visualized under fluoroscopy. The catheter was pulled and flushed easily. It was then secured in place in normal fashion. Patient tolerated the procedure well was sent back to his room for recovery.
--- NOTE | 2023-07-29 08:57 | IR ---
PICC Insertion: EXAMINATION TYPE: IR cvc insert >=5 years Intraoperative/procedural fluoroscopic services were provid ed. CLINICAL INDICATION:Male, 62 years old with history of TPN; , H Total fluoroscopy time is 1.1 min. DAP: 0.752 Gycm2 Please see the operative/procedural note for further details.
[2023-07-29 09:04] LABS: Ionized Calcium 5.2 mg/dL (4.5-5.3)
[2023-07-29 09:40] LABS: African American GFR (CKD) >90 (>60 ml/min/1.73 sqM); Anion Gap 6 mmol/L; Blood Urea Nitrogen 3 mg/dL (9-20); Calcium 9.1 mg/dL (8.4-10.2); Carbon Dioxide 27 mmol/L (22-30); Chloride 101 mmol/L (98-107); Glucose 114 mg/dL (74-99); Magnesium 1.7 mg/dL (1.6-2.3); Non-African American GFR(CKD) >90 (>60 ml/min/1.73 sqM); Potassium 3.9 mmol/L (3.5-5.1); Sodium 134 mmol/L (137-145)
[2023-07-29] MEDS: KETOROLAC 15 MG/ML 1 ML VIAL IVP SCH (11:20)
[2023-07-29] MEDS: ACETAMINOPHEN IV (For NPO) 1,000 MG in EMPTY BAG 1 BAG IVPB SCH (11:25)
[2023-07-29] MEDS: MVI, ADULT NO.4 WITH VIT K 10 ML, TRACE (CONC-1ML/DOSE) 1 ML in AMINO ACID 5%-D20W+LYTE... IV SCH (12:15)
--- NOTE | 2023-07-29 13:13 | P.PN ---
Subjective Progress Note Date: 07/29/23 62-year-old male with no significant past medical history who presented to the hospital on 06/04/2023 with a 2-week history of constipation, nausea, and vomiting. Patient has been to different ERs over the last several weeks and was diagnosed with constipatiom initially he was given enemas without much imp rovement. He then went to [facility] and had a CT done which he was told showed fecal impaction and he was sent home with enema. Upon arrival to ED on 06/04/2023, he was tachycardic and hypertensive. 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 He was admitted for bowel obstruction due to large sigmoid mass; patient underwent a decompressive colostomy on 06/04/23 -Patient is admitted to the hospital for sigmoid colectomy, takedown of splenic flexure, reversal of transverse colostomy and traverse of mucous fistula with appendectomy and lysis of adhesions and omentectomy; patient is POD #1 07/24/2023 And is seen and evaluated sitting up in the bedside chair; NG tube has been removed; patient is n.p.o. with ice chips Vital signs reviewed and stable with temperature of 98.6, pulse 101, respiration 19 and blood pressure of 122/88 Lab review shows a WBC of 12.1 which is trended down from 13.2 yesterday, hemoglobin of 11.6 and platelet count of 343, sodium 132, potassium 4.3, BUNs/creatinine of 10/0.61 and blood glucose of 141 --Patient is status post reversal colostomy and sigmoid resection; general surgery on board and recommending to continue with keeping patient n.p.o. for now 07/25/2023 Patient is awake alert and oriented He is calm in bed. He still n.p.o. but there is no NG tube in place He has a vertical surgical abdominal wound with dressing in place, wound VAC in place as well Patient denies chest pain or dyspnea. He is mildly tachycardic, afebrile blood pressure is acceptable He has mild leukocytosis of 12,000, hemoglobin 11.6 He is on D5 half-normal saline at 125 mL/h 07/26/2023 Patient awake noting distress Patient is getting ice chips only, still n.p.o. No bowel movement yet Abdominal pain is controlled He remains on gentle hydration with D5 half-normal saline at 125 mL/h 07/27/2023 patient sitting in chair but does not look in distress. His abdominal pain controlled Staffing patient has little bowel movement but patient does not believe so. No vomiting Hemodynamically stable Continue with Reglan and gentle hydration with half normal saline 07/28/2023 This morning patient still n.p.o. He still has no bowel movement yet His abdomen looks soft with no significant tenderness Is still on IV fluids 07/28. Patient seen and examined. Denies abdominal pain. Denies any nausea or vomiting. Currently n.p.o., on TPN REVIEW OF SYSTEMS: CONSTITUTIONAL: No fever, no malaise,. CARDIOVASCULAR: No chest pain, no palpitations, no syncope. PULMONARY: No shortness of breath, no cough, GASTROINTESTINAL: No diarrhea, no nausea, no vomiting, no abdominal pain. NEUROLOGICAL: No headaches, no weakness, PHYSICAL EXAMINATION: GENERAL: The patient is alert and oriented x3, not in any acute distress. Well developed, well nourished. HEENT: Pupils are round and equally reacting to light. EOMI. No scleral icterus. No conjunctival pallor. Normocephalic, atraumatic. No pharyngeal erythema. No thyromegaly. CARDIOVASCULAR: S1 and S2 present. No murmurs, rubs, or gallops. PULMONARY: Chest is clear to auscultation, no wheezing or crackles. ABDOMEN: Soft, laparotomy surgical incision, drain in place MUSCULOSKELETAL: No joint swelling or deformity. EXTREMITIES: No cyanosis, clubbing, or pedal edema. NEUROLOGICAL: Gross neurological examination did not reveal any focal deficits. SKIN: No rashes. Assessment and plan Colon obstruction/mass; patient is status post sigmoid colectomy with takedown of splenic flexure, reversal of transverse colostomy, appendectomy, lysis of adhesion and omentectomy Hypertension; osteoarthritis; Monitor vital signs Monitor CBC Monitor CMP Continue telemetry monitoring Encourage use of incentive spirometer Continue pain management Continue IV fluids Encourage patient to increase activity level encourage patient to use incentive spirometer Patient had PICC line placed this morning, started on TPN. Surgery following. Labs and medication were reviewed.. Continue same treatment. Continue with symptomatic treatment. Resume home medication. Monitor labs and vitals. DVT and GI prophylaxis. Further recommendations as per clinical course of the patient Dictation was produced using dragon dictation software. please excuse any grammatical, word or spelling errors. Objective - Vital Signs Vital signs: Vital Signs Temp 98.4 F 07/29/23 07:06 Pulse 84 07/29/23 07:06 Resp 18 07/29/23 09:51 BP 150/81 07/29/23 07:06 Pulse Ox 98 07/29/23 07:06 FiO2 Intake & Output 07/28/23 07/29/23 07/29/23 18:59 06:59 18:59 Weight 59.5 kg Other: Voiding Method Toilet Toilet Urinal Urinal # Voids 5 5 - Labs CBC & Chem 7: 07/27/23 05:51 07/29/23 08:39 Labs: Abnormal Lab Results - Last 24 Hours (Table) 07/28/23 07/29/23 Range/Units 17:17 08:39 Sodium 134 L 134 L (137-145) mmol/L BUN 4 L 3 L (9-20) mg/dL Creatinine 0.51 L 0.53 L (0.66-1.25) mg/dL Glucose 132 H 114 H (74-99) mg/dL Total Protein 6.2 L (6.3-8.2) g/dL Albumin 3.1 L (3.5-5.0) g/dL
--- NOTE | 2023-07-29 13:31 | P.PN ---
Subjective Progress Note Date: 07/29/23 CHIEF COMPLAINT: Colon obstruction HISTORY OF PRESENT ILLNESS: Patient is postop day #7 status post sigmoid colectomy, takedown splenic flexure, reversal of transverse colostomy, reversal of mucous fistula, appendectomy, lysis of adhesions and omentectomy. Patient reports his pain is controlled. Still only having minimal flatus no bowel movement. He is status post PICC line placement to start TPN. Afebrile. PHYSICAL EXAM: VITAL SIGNS: Reviewed. GENERAL: Well-developed in no acute distress. HEENT: No sclera icterus. Extraocular movements grossly intact. Moist buccal mucosa. Head is atraumatic, normocephalic. ABDOMEN: Soft. Nondistended. mild tenderness at incision site. Prevana wound vac intact. Mild shadowing noted on the Prevana wound VAC dressing NEUROLOGIC: Alert and oriented. Cranial nerves II through XII grossly intact. ASSESSMENT: 1. History of colonic obstruction PLAN: -Dietitian consulted for TPN for nutrition support -Remove Prevana wound VAC dressing today and cover incision with ABD -Patient can shower -Continue pain management. IV Toradol and IV Tylenol ordered for pain -Encourage patient to increase activity level -Encourage patient to use incentive spirometer -Keep patient n.p.o. until he has significant bowel function -DVT prophylaxis subcu heparin Physician Cardiopulmonary Supervisor note has been reviewed by physician. Signing provider agrees with the documented findings, assessment, and plan of care. I have personally seen and examined the patient, reviewed the SAP BASIS /PAs history, exam and MDM and agree with the assessment and plan as written. Based on total visit time, I have performed more than 50% of the visit. As above: Patient feels well today. PICC line placed for TPN. Belen was removed. Incision clean and dry currently. Only mild discomfort. Passed a very very small amount of flatus. No nausea. Await full return of bowel function before initiating diet. Objective - Vital Signs Vital signs: Vital Signs Temp 98.4 F 07/29/23 07:06 Pulse 84 07/29/23 07:06 Resp 18 07/29/23 09:51 BP 150/81 07/29/23 07:06 Pulse Ox 98 07/29/23 07:06 FiO2 Intake & Output 07/28/23 07/29/23 07/29/23 18:59 06:59 18:59 Weight 59.5 kg 59.5 kg Other: Voiding Method Toilet Toilet Urinal Urinal # Voids 5 5 - Labs CBC & Chem 7: 07/27/23 05:51 07/29/23 08:39 Labs: Abnormal Lab Results - Last 24 Hours (Table) 07/28/23 07/29/23 Range/Units 17:17 08:39 Sodium 134 L 134 L (137-145) mmol/L BUN 4 L 3 L (9-20) mg/dL Creatinine 0.51 L 0.53 L (0.66-1.25) mg/dL Glucose 132 H 114 H (74-99) mg/dL Total Protein 6.2 L (6.3-8.2) g/dL Albumin 3.1 L (3.5-5.0) g/dL
--- NOTE | 2023-07-29 14:48 | CDI ---
Documentation Clarification Form Date: 07/29/2023 02:05:56 PM From: Joan Sims RN CCDS Phone: [phone] Admit Date: 07/22/2023 06:59:00 AM Patient Name: Guero Hart Visit Number: [id number] Discharge Date: ATTENTION: The Clinical Documentation Specialists (CDI) and [facility] Coding Staff appreciate your assistance in clarifying documentation. Please respond to the clarification below the line at the bottom and electronically sign. The CDI & [facility] Coding staff will review the response and follow-up if needed. Please note: Queries are made part of the Legal Health Record. If you have any questions, please contact the author of this message via ITS. Dr. Vivek Kimball The Registered Dietitian assessment on 07/28 indicates this patient meets criteria for Severe Malnutrition. Based on this information and the findings below, is there an additional diagnosis that is clinically appropriate for this patient? History/Risk Factors: 62 year old male presents for elective reversal of transvers colostomy, Sigmoid colectomy, Medical History: HTN and diverting colostomy, sigmoid colonic mass, colonic obstruction. 07/21, Medicine note. Clinical Indicators: RD Consult Assessment 07/28: Appetite poor, Regular diet. Nutrition intake poor, 0% consumed, NPO diet, PICC Line 07/28. Nutrition concerns: Refeeding risk. Nutrition related meds Antiemetic, Reglan, Zinc. Physical findings: underweight moderate upper region tricep fat loss. Weight 59.5kg, Hgt 5ft 4in Normal BMI classification. BMI 22.5; weight change x 2 months 9kg related to decreased intake. Estimated Nutritional weight in Kcals: Energy formula for estimated nutritional needs 30-35Kcals/kg, Energy needs 1319-7097 Kcal. KCAL increase needs for chronic illness refeeding risk needs (15-20 kcal/kg) = 885 1190. Estimated protein needs: Estimated protein range 1.5-2.0 grams/kg; Estimated protein needs 88-119 grams/day. Cancer and cachexia. Estimated fluid formula 1ml/Kcal Estimated Fluid 4032-1714 mls/day. Nutritional Diagnosis Severe malnutrition in the context of chronic illness. Inadequate protein energy intake with increased needs >5% weight loss x 1 month, <50% EER >5 Days, moderate fat wasting. Treatment: 07/28 PICC Line for TPN, Monitor PO intake, Monitor TPN infusion Supplements: Parenteral Nutrition Is there an additional diagnosis that is clinically appropriate for this patient? [ x] Severe Protein-Calorie Malnutrition [ ] Other condition, please specify [ ] Unable to Determine (Template Last Revised: October 2022) MTDD
[2023-07-29] MEDS ORDERED: MVI, ADULT NO.4 WITH VIT K 10 ML, TRACE (CONC-1ML/DOSE) 1 ML in AMINO ACID 5%-D20W+LYTE... IV SCH (20:00)
[2023-07-30 06:25] LABS: African American GFR (CKD) >90 (>60 ml/min/1.73 sqM); Anion Gap 4 mmol/L; Blood Urea Nitrogen 6 mg/dL (9-20); Calcium 8.7 mg/dL (8.4-10.2); Carbon Dioxide 26 mmol/L (22-30); Chloride 103 mmol/L (98-107); Glucose 147 mg/dL (74-99); Magnesium 1.8 mg/dL (1.6-2.3); Non-African American GFR(CKD) >90 (>60 ml/min/1.73 sqM); Phosphorus 3.8 mg/dL (2.5-4.5); Potassium 4.1 mmol/L (3.5-5.1); Sodium 133 mmol/L (137-145)
[2023-07-30] MEDS: FAT EMULSION 20% 250 ML IV SCH (08:01)
--- NOTE | 2023-07-30 12:56 | P.PN ---
Subjective Progress Note Date: 07/30/23 62-year-old male with no significant past medical history who presented to the hospital on 06/04/2023 with a 2-week history of constipation, nausea, and vomiting. Patient has been to different ERs over the last several weeks and was diagnosed with constipatiom initially he was given enemas without much imp rovement. He then went to [facility] and had a CT done which he was told showed fecal impaction and he was sent home with enema. Upon arrival to ED on 06/04/2023, he was tachycardic and hypertensive. 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 He was admitted for bowel obstruction due to large sigmoid mass; patient underwent a decompressive colostomy on 06/04/23 -Patient is admitted to the hospital for sigmoid colectomy, takedown of splenic flexure, reversal of transverse colostomy and traverse of mucous fistula with appendectomy and lysis of adhesions and omentectomy; patient is POD #1 07/24/2023 And is seen and evaluated sitting up in the bedside chair; NG tube has been removed; patient is n.p.o. with ice chips Vital signs reviewed and stable with temperature of 98.6, pulse 101, respiration 19 and blood pressure of 122/88 Lab review shows a WBC of 12.1 which is trended down from 13.2 yesterday, hemoglobin of 11.6 and platelet count of 343, sodium 132, potassium 4.3, BUNs/creatinine of 10/0.61 and blood glucose of 141 --Patient is status post reversal colostomy and sigmoid resection; general surgery on board and recommending to continue with keeping patient n.p.o. for now 07/25/2023 Patient is awake alert and oriented He is calm in bed. He still n.p.o. but there is no NG tube in place He has a vertical surgical abdominal wound with dressing in place, wound VAC in place as well Patient denies chest pain or dyspnea. He is mildly tachycardic, afebrile blood pressure is acceptable He has mild leukocytosis of 12,000, hemoglobin 11.6 He is on D5 half-normal saline at 125 mL/h 07/26/2023 Patient awake noting distress Patient is getting ice chips only, still n.p.o. No bowel movement yet Abdominal pain is controlled He remains on gentle hydration with D5 half-normal saline at 125 mL/h 07/27/2023 patient sitting in chair but does not look in distress. His abdominal pain controlled Staffing patient has little bowel movement but patient does not believe so. No vomiting Hemodynamically stable Continue with Reglan and gentle hydration with half normal saline 07/28/2023 This morning patient still n.p.o. He still has no bowel movement yet His abdomen looks soft with no significant tenderness Is still on IV fluids 07/28. Patient seen and examined. Denies abdominal pain. Denies any nausea or vomiting. Currently n.p.o., on TPN 07/29. Patient seen and examined. Blood work done this morning showed sodium 133, potassium 4.1, BUN 6, creatinine 0.47, glucose 147, calcium 8.7, phosphorus 3.8, magnesium 1.8. Has not had a bowel movement, not passing any gas REVIEW OF SYSTEMS: CONSTITUTIONAL: No fever, no malaise,. CARDIOVASCULAR: No chest pain, no palpitations, no syncope. PULMONARY: No shortness of breath, no cough, GASTROINTESTINAL: No diarrhea, no nausea, no vomiting, no abdominal pain. NEUROLOGICAL: No headaches, no weakness, PHYSICAL EXAMINATION: GENERAL: The patient is alert and oriented x3, not in any acute distress. Well developed, well nourished. HEENT: Pupils are round and equally reacting to light. EOMI. No scleral icterus. No conjunctival pallor. Normocephalic, atraumatic. No pharyngeal erythema. No thyromegaly. CARDIOVASCULAR: S1 and S2 present. No murmurs, rubs, or gallops. PULMONARY: Chest is clear to auscultation, no wheezing or crackles. ABDOMEN: Soft, laparotomy surgical incision, drain in place MUSCULOSKELETAL: No joint swelling or deformity. EXTREMITIES: No cyanosis, clubbing, or pedal edema. NEUROLOGICAL: Gross neurological examination did not reveal any focal deficits. SKIN: No rashes. Assessment and plan Colon obstruction/mass; patient is status post sigmoid colectomy with takedown of splenic flexure, reversal of transverse colostomy, appendectomy, lysis of adhesion and omentectomy Hypertension; osteoarthritis Moderate malnutrition Monitor vital signs Monitor CBC Monitor CMP Continue telemetry monitoring Encourage use of incentive spirometer Continue pain management Continue TPN Encourage patient to increase activity level encourage patient to use incentive spirometer Surgery following. Labs and medication were reviewed.. Continue same treatment. Continue with symptomatic treatment. Resume home medication. Monitor labs and vitals. DVT and GI prophylaxis. Further recommendations as per clinical course of the patient Dictation was produced using [employer] dictation software. please excuse any grammatical, word or spelling errors. Objective - Vital Signs Vital signs: Vital Signs Temp 98.3 F 07/30/23 08:00 Pulse 78 07/30/23 08:00 Resp 18 07/30/23 08:00 BP 116/77 07/30/23 08:00 Pulse Ox 97 07/30/23 08:00 FiO2 Intake & Output 07/29/23 07/30/23 07/30/23 18:59 06:59 18:59 Intake Total 200 Output Total 600 1025 Balance -400 -1025 Weight 59.5 kg Intake: Oral 200 Output: Urine 600 1025 Other: Voiding Method Toilet Urinal # Voids 3 - Labs CBC & Chem 7: 07/27/23 05:51 07/30/23 05:38 Labs: Abnormal Lab Results - Last 24 Hours (Table) 07/29/23 07/30/23 Range/Units 08:38 05:38 Sodium 133 L (137-145) mmol/L BUN 6 L (9-20) mg/dL Creatinine 0.47 L (0.66-1.25) mg/dL Glucose 147 H (74-99) mg/dL Triglycerides 169.00 H (0.00-149.00) mg/dL
[2023-07-30] MEDS: MVI, ADULT NO.4 WITH VIT K 10 ML, TRACE (CONC-1ML/DOSE) 1 ML, SODIUM ACETATE 30 MEQ, PO... IV SCH (14:38)
--- NOTE | 2023-07-30 18:37 | P.PN ---
Subjective Patient seen and evaluated at bedside. Patient doing well. no gas in bag. Denies pain, nausea, emesis. Objective - Vital Signs Vital signs: Vital Signs Temp 98.1 F 07/30/23 14:00 Pulse 82 07/30/23 14:00 Resp 18 07/30/23 14:00 BP 123/76 07/30/23 14:00 Pulse Ox 95 07/30/23 14:00 FiO2 Intake & Output 07/29/23 07/30/23 07/30/23 18:59 06:59 18:59 Intake Total 200 Output Total 600 1025 2100 Balance -400 -1025 -2100 Weight 59.5 kg Intake: Oral 200 Output: Urine 600 1025 2100 Other: Voiding Method Toilet Urinal # Voids 3 - Exam gen: nad cv: rrr pul: non labored breathing abd: soft, non distended, no guarding or rebound tenderness, ostomy pink, patent, bowel sweat in bag - Labs CBC & Chem 7: 07/27/23 05:51 07/30/23 05:38 Labs: Abnormal Lab Results - Last 24 Hours (Table) 07/30/23 Range/Units 05:38 Sodium 133 L (137-145) mmol/L BUN 6 L (9-20) mg/dL Creatinine 0.47 L (0.66-1.25) mg/dL Glucose 147 H (74-99) mg/dL Assessment and Plan Assessment: History of colonic obstruction PLAN: -Dietitian consulted for TPN for nutrition support -Patient can shower -Continue pain management. IV Toradol and IV Tylenol ordered for pain -Encourage patient to increase activity level -Encourage patient to use incentive spirometer -Keep patient n.p.o. until he has significant bowel function -DVT prophylaxis subcu heparin
[2023-07-31 06:25] LABS: ALT 15 U/L (4-49); AST 17 U/L (17-59); African American GFR (CKD) >90 (>60 ml/min/1.73 sqM); Albumin 2.6 g/dL (3.5-5.0); Albumin/Globulin Ratio 0.9; Alkaline Phosphatase 71 U/L (38-126); Anion Gap 6 mmol/L; Blood Urea Nitrogen 10 mg/dL (9-20); Calcium 8.6 mg/dL (8.4-10.2); Carbon Dioxide 25 mmol/L (22-30); Chloride 103 mmol/L (98-107); Globulin 2.8 g/dL; Glucose 151 mg/dL (74-99); Magnesium 2.1 mg/dL (1.6-2.3); Non-African American GFR(CKD) >90 (>60 ml/min/1.73 sqM); Phosphorus 3.3 mg/dL (2.5-4.5); Sodium 134 mmol/L (137-145); Total Bilirubin 0.6 mg/dL (0.2-1.3); Total Protein 5.4 g/dL (6.3-8.2)
[2023-07-31 09:53] LABS: HCT 29.4 % (39.6-50.0); HGB 9.8 g/dL (13.0-17.0); MCH 31.6 pg (27.0-32.0); MCHC 33.3 g/dL (32.0-37.0); MCV 94.8 FL (80.0-97.0); NRBC Per 100 WBC 0 X 10*3/uL (0.00-0.01); Platelet Count 477 X 10*3/uL (140-440); RDW 12.6 % (11.5-14.5)
--- NOTE | 2023-07-31 12:32 | P.PN ---
Subjective Progress Note Date: 07/31/23 Principal diagnosis: Ostomy reversal Patient feels well. Ambulating in the hallways. Denies nausea or vomiting. Minimal flatus. No bowel movement. White blood cell count 12 today. No fevers. Objective - Vital Signs Vital signs: Vital Signs Temp 97.9 F 07/31/23 07:51 Pulse 86 07/31/23 07:51 Resp 18 07/31/23 07:51 BP 134/84 07/31/23 07:51 Pulse Ox 99 07/31/23 07:51 FiO2 Intake & Output 07/30/23 07/31/23 07/31/23 18:59 06:59 18:59 Intake Total 1048.667 Output Total 2100 850 Balance -2100 -850 1048.667 Intake: Intake, IV Titration 1048.667 Amount Mvi, Adult No.4 with Vit 1048.667 K 10 ml Trace (Conc-1Ml/ Dose) 1 ml Sodium Acetate 30 meq Potassium Chloride 20 meq Calcium Gluconate 1 gm Magnesium Sulfate gm 1.5 gm In Amino Acids 5 %/Dextrose 20 % 1,000 ml @ 55 mls/hr IV .Q19H5M [facility] Rx#: [id number] Output: Urine 2100 850 Other: Voiding Method Toilet Urinal - Exam Abdomen: Soft, nondistended, incision clean and dry, minimal tenderness - Labs CBC & Chem 7: 07/31/23 05:33 07/31/23 05:33 Labs: Abnormal Lab Results - Last 24 Hours (Table) 07/31/23 07/31/23 Range/Units 05:33 05:33 WBC 12.30 H (4.50-10.00) X 10*3/uL RBC 3.10 L (4.40-5.60) X 10*6/uL Hgb 9.8 L (13.0-17.0) g/dL Hct 29.4 L (39.6-50.0) % Plt Count 477 H (140-440) X 10*3/uL MPV 9.0 L (9.5-12.2) FL Sodium 134 L (137-145) mmol/L Creatinine 0.51 L (0.66-1.25) mg/dL Glucose 151 H (74-99) mg/dL Total Protein 5.4 L (6.3-8.2) g/dL Albumin 2.6 L (3.5-5.0) g/dL Assessment and Plan (1) Cancer of sigmoid Narrative/Plan: 62-year-old male stable after recent colostomy reversal. Continue ambulation. Continue TPN. Monitor return of bowel function. Repeat labs tomorrow. Current Visit: Yes Status: Acute Code(s): C18.7 - MALIGNANT NEOPLASM OF SIGMOID COLON SNOMED Code(s): 906691673
--- NOTE | 2023-07-31 12:40 | P.PN ---
Subjective Progress Note Date: 07/31/23 62-year-old male with no significant past medical history who presented to the hospital on 06/04/2023 with a 2-week history of constipation, nausea, and vomiting. Patient has been to different ERs over the last several weeks and was diagnosed with constipatiom initially he was given enemas without much imp rovement. He then went to [facility] and had a CT done which he was told showed fecal impaction and he was sent home with enema. Upon arrival to ED on 06/04/2023, he was tachycardic and hypertensive. 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 He was admitted for bowel obstruction due to large sigmoid mass; patient underwent a decompressive colostomy on 06/04/23 -Patient is admitted to the hospital for sigmoid colectomy, takedown of splenic flexure, reversal of transverse colostomy and traverse of mucous fistula with appendectomy and lysis of adhesions and omentectomy; patient is POD #1 07/24/2023 And is seen and evaluated sitting up in the bedside chair; NG tube has been removed; patient is n.p.o. with ice chips Vital signs reviewed and stable with temperature of 98.6, pulse 101, respiration 19 and blood pressure of 122/88 Lab review shows a WBC of 12.1 which is trended down from 13.2 yesterday, hemoglobin of 11.6 and platelet count of 343, sodium 132, potassium 4.3, BUNs/creatinine of 10/0.61 and blood glucose of 141 --Patient is status post reversal colostomy and sigmoid resection; general surgery on board and recommending to continue with keeping patient n.p.o. for now 07/25/2023 Patient is awake alert and oriented He is calm in bed. He still n.p.o. but there is no NG tube in place He has a vertical surgical abdominal wound with dressing in place, wound VAC in place as well Patient denies chest pain or dyspnea. He is mildly tachycardic, afebrile blood pressure is acceptable He has mild leukocytosis of 12,000, hemoglobin 11.6 He is on D5 half-normal saline at 125 mL/h 07/26/2023 Patient awake noting distress Patient is getting ice chips only, still n.p.o. No bowel movement yet Abdominal pain is controlled He remains on gentle hydration with D5 half-normal saline at 125 mL/h 07/27/2023 patient sitting in chair but does not look in distress. His abdominal pain controlled Staffing patient has little bowel movement but patient does not believe so. No vomiting Hemodynamically stable Continue with Reglan and gentle hydration with half normal saline 07/28/2023 This morning patient still n.p.o. He still has no bowel movement yet His abdomen looks soft with no significant tenderness Is still on IV fluids 07/28. Patient seen and examined. Denies abdominal pain. Denies any nausea or vomiting. Currently n.p.o., on TPN 07/29. Patient seen and examined. Blood work done this morning showed sodium 133, potassium 4.1, BUN 6, creatinine 0.47, glucose 147, calcium 8.7, phosphorus 3.8, magnesium 1.8. Has not had a bowel movement, not passing any gas 07/30. Patient seen and examined laying comfortably in the bed still not passing gas or had a bowel movement. Currently on TPN REVIEW OF SYSTEMS: CONSTITUTIONAL: No fever, no malaise,. CARDIOVASCULAR: No chest pain, no palpitations, no syncope. PULMONARY: No shortness of breath, no cough, GASTROINTESTINAL: No diarrhea, no nausea, no vomiting, no abdominal pain. NEUROLOGICAL: No headaches, no weakness, PHYSICAL EXAMINATION: GENERAL: The patient is alert and oriented x3, not in any acute distress. Well developed, well nourished. HEENT: Pupils are round and equally reacting to light. EOMI. No scleral icterus. No conjunctival pallor. Normocephalic, atraumatic. No pharyngeal erythema. No thyromegaly. CARDIOVASCULAR: S1 and S2 present. No murmurs, rubs, or gallops. PULMONARY: Chest is clear to auscultation, no wheezing or crackles. ABDOMEN: Soft, laparotomy surgical incision, drain in place MUSCULOSKELETAL: No joint swelling or deformity. EXTREMITIES: No cyanosis, clubbing, or pedal edema. NEUROLOGICAL: Gross neurological examination did not reveal any focal deficits. SKIN: No rashes. Assessment and plan Colon obstruction/mass; patient is status post sigmoid colectomy with takedown of splenic flexure, reversal of transverse colostomy, appendectomy, lysis of adhesion and omentectomy Hypertension; osteoarthritis Moderate malnutrition Monitor vital signs Monitor CBC Monitor CMP Continue telemetry monitoring Encourage use of incentive spirometer Continue pain management Continue TPN Encourage patient to increase activity level encourage patient to use incentive spirometer Surgery following. Labs and medication were reviewed.. Continue same treatment. Continue with symptomatic treatment. Resume home medication. Monitor labs and vitals. DVT and GI prophylaxis. Further recommendations as per clinical course of the patient Dictation was produced using [employer] dictation software. please excuse any grammatical, word or spelling errors. Objective - Vital Signs Vital signs: Vital Signs Temp 97.9 F 07/31/23 07:51 Pulse 86 07/31/23 07:51 Resp 18 07/31/23 07:51 BP 134/84 07/31/23 07:51 Pulse Ox 99 07/31/23 07:51 FiO2 Intake & Output 07/30/23 07/31/23 07/31/23 18:59 06:59 18:59 Output Total 2100 850 Balance -2100 -850 Output: Urine 2100 850 - Labs CBC & Chem 7: 07/31/23 05:33 07/31/23 05:33 Labs: Abnormal Lab Results - Last 24 Hours (Table) 07/31/23 Range/Units 05:33 Sodium 134 L (137-145) mmol/L Creatinine 0.51 L (0.66-1.25) mg/dL Glucose 151 H (74-99) mg/dL Total Protein 5.4 L (6.3-8.2) g/dL Albumin 2.6 L (3.5-5.0) g/dL
[2023-08-01] MEDS: MVI, ADULT NO.4 WITH VIT K 10 ML, TRACE (CONC-1ML/DOSE) 1 ML in AMINO ACID 5%-D20W+LYTE... IV SCH (05:05)
[2023-08-01 07:04] LABS: ALT 14 U/L (4-49); AST 16 U/L (17-59); African American GFR (CKD) >90 (>60 ml/min/1.73 sqM); Albumin 2.5 g/dL (3.5-5.0); Albumin/Globulin Ratio 0.9; Alkaline Phosphatase 72 U/L (38-126); Anion Gap 6 mmol/L; Blood Urea Nitrogen 12 mg/dL (9-20); Calcium 8.4 mg/dL (8.4-10.2); Carbon Dioxide 23 mmol/L (22-30); Chloride 104 mmol/L (98-107); Globulin 2.9 g/dL; Glucose 162 mg/dL (74-99); Magnesium 2.1 mg/dL (1.6-2.3); Non-African American GFR(CKD) >90 (>60 ml/min/1.73 sqM); Phosphorus 3.1 mg/dL (2.5-4.5); Potassium 4.1 mmol/L (3.5-5.1); Sodium 133 mmol/L (137-145); Total Bilirubin 0.5 mg/dL (0.2-1.3); Total Protein 5.4 g/dL (6.3-8.2)
[2023-08-01 08:53] LABS: Basophils # (A) 0.03 X 10*3/uL (0.00-0.10); Basophils % (A) 0.3 %; Eosinophils # (A) 0.27 X 10*3/uL (0.04-0.35); Eosinophils % (A) 2.3 %; HGB 9.4 g/dL (13.0-17.0); Lymphocytes # (A) 1.42 X 10*3/uL (0.90-5.00); Lymphocytes % (A) 12.3 %; MCH 31.5 pg (27.0-32.0); MCHC 33.6 g/dL (32.0-37.0); Mean Platelet Volume 8.9 FL (9.5-12.2); Monocytes # (A) 0.95 X 10*3/uL (0.20-1.00); Monocytes % (A) 8.2 %; NRBC Per 100 WBC 0 X 10*3/uL (0.00-0.01); Neutrophils # (A) 8.86 X 10*3/uL (1.80-7.70); Neutrophils % (A) 76.5 %; Platelet Count 489 X 10*3/uL (140-440); RBC 2.98 X 10*6/uL (4.40-5.60); RDW 12.6 % (11.5-14.5); WBC 11.58 X 10*3/uL (4.50-10.00)
--- NOTE | 2023-08-01 12:11 | P.PN ---
Subjective Progress Note Date: 08/01/23 62-year-old male with no significant past medical history who presented to the hospital on 06/04/2023 with a 2-week history of constipation, nausea, and vomiting. Patient has been to different ERs over the last several weeks and was diagnosed with constipatiom initially he was given enemas without much imp rovement. He then went to [facility] and had a CT done which he was told showed fecal impaction and he was sent home with enema. Upon arrival to ED on 06/04/2023, he was tachycardic and hypertensive. 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 He was admitted for bowel obstruction due to large sigmoid mass; patient underwent a decompressive colostomy on 06/04/23 -Patient is admitted to the hospital for sigmoid colectomy, takedown of splenic flexure, reversal of transverse colostomy and traverse of mucous fistula with appendectomy and lysis of adhesions and omentectomy; patient is POD #1 07/24/2023 And is seen and evaluated sitting up in the bedside chair; NG tube has been removed; patient is n.p.o. with ice chips Vital signs reviewed and stable with temperature of 98.6, pulse 101, respiration 19 and blood pressure of 122/88 Lab review shows a WBC of 12.1 which is trended down from 13.2 yesterday, hemoglobin of 11.6 and platelet count of 343, sodium 132, potassium 4.3, BUNs/creatinine of 10/0.61 and blood glucose of 141 --Patient is status post reversal colostomy and sigmoid resection; general surgery on board and recommending to continue with keeping patient n.p.o. for now 07/25/2023 Patient is awake alert and oriented He is calm in bed. He still n.p.o. but there is no NG tube in place He has a vertical surgical abdominal wound with dressing in place, wound VAC in place as well Patient denies chest pain or dyspnea. He is mildly tachycardic, afebrile blood pressure is acceptable He has mild leukocytosis of 12,000, hemoglobin 11.6 He is on D5 half-normal saline at 125 mL/h 07/26/2023 Patient awake noting distress Patient is getting ice chips only, still n.p.o. No bowel movement yet Abdominal pain is controlled He remains on gentle hydration with D5 half-normal saline at 125 mL/h 07/27/2023 patient sitting in chair but does not look in distress. His abdominal pain controlled Staffing patient has little bowel movement but patient does not believe so. No vomiting Hemodynamically stable Continue with Reglan and gentle hydration with half normal saline 07/28/2023 This morning patient still n.p.o. He still has no bowel movement yet His abdomen looks soft with no significant tenderness Is still on IV fluids 07/28. Patient seen and examined. Denies abdominal pain. Denies any nausea or vomiting. Currently n.p.o., on TPN 07/29. Patient seen and examined. Blood work done this morning showed sodium 133, potassium 4.1, BUN 6, creatinine 0.47, glucose 147, calcium 8.7, phosphorus 3.8, magnesium 1.8. Has not had a bowel movement, not passing any gas 07/30. Patient seen and examined laying comfortably in the bed still not passing gas or had a bowel movement. Currently on TPN 07/31. Patient seen and examined. Patient states that he is passing gas now but still has no bowel movement. Currently on TPN REVIEW OF SYSTEMS: CONSTITUTIONAL: No fever, no malaise,. CARDIOVASCULAR: No chest pain, no palpitations, no syncope. PULMONARY: No shortness of breath, no cough, GASTROINTESTINAL: No diarrhea, no nausea, no vomiting, no abdominal pain. NEUROLOGICAL: No headaches, no weakness, PHYSICAL EXAMINATION: GENERAL: The patient is alert and oriented x3, not in any acute distress. Well developed, well nourished. HEENT: Pupils are round and equally reacting to light. EOMI. No scleral icterus. No conjunctival pallor. Normocephalic, atraumatic. No pharyngeal erythema. No t hyromegaly. CARDIOVASCULAR: S1 and S2 present. No murmurs, rubs, or gallops. PULMONARY: Chest is clear to auscultation, no wheezing or crackles. ABDOMEN: Soft, laparotomy surgical incision, no guarding or rigidity MUSCULOSKELETAL: No joint swelling or deformity. EXTREMITIES: No cyanosis, clubbing, or pedal edema. NEUROLOGICAL: Gross neurological examination did not reveal any focal deficits. SKIN: No rashes. Assessment and plan Colon obstruction/mass; patient is status post sigmoid colectomy with takedown of splenic flexure, reversal of transverse colostomy, appendectomy, lysis of adhesion and omentectomy Hypertension; osteoarthritis Moderate malnutrition Monitor vital signs Monitor CBC Monitor CMP Continue telemetry monitoring Encourage use of incentive spirometer Continue pain management Continue TPN Encourage patient to increase activity level encourage patient to use incentive spirometer Surgery following. Labs and medication were reviewed.. Continue same treatment. Continue with symptomatic treatment. Resume home medication. Monitor labs and vitals. DVT and GI prophylaxis. Further recommendations as per clinical course of the patient Dictation was produced using [employer] dictation software. please excuse any grammatical, word or spelling errors. Objective - Vital Signs Vital signs: Vital Signs Temp 98.3 F 08/01/23 07:02 Pulse 74 08/01/23 07:02 Resp 16 08/01/23 07:02 BP 133/77 08/01/23 07:02 Pulse Ox 98 08/01/23 07:02 FiO2 Intake & Output 07/31/23 08/01/23 08/01/23 18:59 06:59 18:59 Intake Total 7945.095 2306 Output Total 1999 Balance -566.707 2992 -590 Intake: Intake, IV Titration 5278.014 2914 Amount D5-0.45% NaCl with KCl 990 20Meq/l 1,000 ml @ 125 mls/hr IV .Q8H [facility] Rx#: [id number] Mvi, Adult No.4 with Vit 550 K 10 ml Trace (Conc-1Ml/ Dose) 1 ml In Amino Acid 5%-D20w+Lytes*E* 1,000 ml @ 55 mls/hr IV .[id number] [facility] Rx#:[id number] Mvi, Adult No.4 with Vit 1048.667 K 10 ml Trace (Conc-1Ml/ Dose) 1 ml Sodium Acetate 30 meq Potassium Chloride 20 meq Calcium Gluconate 1 gm Magnesium Sulfate gm 1.5 gm In Amino Acids 5 %/Dextrose 20 % 1,000 ml @ 55 mls/hr IV .[id number] [facility] Rx#: [id number] Oral 480 Output: Urine 1999 Other: Voiding Method Toilet Toilet Toilet Urinal Urinal Urinal - Labs CBC & Chem 7: 08/01/23 06:25 08/01/23 06:25 Labs: Abnormal Lab Results - Last 24 Hours (Table) 08/01/23 08/01/23 Range/Units 06:25 06:25 WBC 11.58 H (4.50-10.00) X 10*3/uL RBC 2.98 L (4.40-5.60) X 10*6/uL Hgb 9.4 L (13.0-17.0) g/dL Hct 28.0 L (39.6-50.0) % Plt Count 489 H (140-440) X 10*3/uL MPV 8.9 L (9.5-12.2) FL Immature Gran # 0.05 H (0.00-0.04) X 10*3/uL Neutrophils # 8.86 H (1.80-7.70) X 10*3/uL Sodium 133 L (137-145) mmol/L Creatinine 0.47 L (0.66-1.25) mg/dL Glucose 162 H (74-99) mg/dL AST 16 L (17-59) U/L Total Protein 5.4 L (6.3-8.2) g/dL Albumin 2.5 L (3.5-5.0) g/dL
--- NOTE | 2023-08-01 12:46 | CDI ---
Documentation Clarification Form Date: 08/01/2023 12:36:38 PM From: Joan Sims RN CCDS Phone: [phone] Admit Date: 07/22/2023 06:59:00 AM Patient Name: Guero Hart Visit Number: [id number] Discharge Date: ATTENTION: The Clinical Documentation Specialists (CDI) and [facility] Coding Staff appreciate your assistance in clarifying documentation. Please respond to the clarification below the line at the bottom and electronically sign. The CDI & [facility] Coding staff will review the response and follow-up if needed. Please note: Queries are made part of the Legal Health Record. If you have any questions, please contact the author of this message via ITS. Dr. Camejo Conflicting documentation has been found in the medical record. As attending physician, please provide clarification. Moderate malnutrition, Medicine note, 07/29. Severe protein calorie malnutrition, Query, 07/28. History/Risk Factors: 62 year old male presents for elective reversal of transvers colostomy, Sigmoid colectomy, Medical History: HTN and diverting colostomy, sigmoid colonic mass, colonic obstruction. 07/21, Medicine note. Clinical Indicators: RD Consult Assessment 07/28: Appetite poor, Regular diet. The Registered Dietitian assessment on 07/28 indicates this patient meets criteria for Severe Malnutrition. RD Consult Assessment 07/28: Appetite poor, Regular diet. Nutrition intake poor, 0% consumed, NPO diet, PICC Line /. Nutrition concerns: Refeeding risk. Nutrition related meds Antiemetic, Reglan, Zinc. Physical findings: underweight moderate upper region tricep fat loss. Weight 59.5kg, Hgt 5ft 4in Normal BMI classification. BMI 22.5; weight change x 2 months 9kg related to decreased intake. Estimated Nutritional weight in Kcals: Energy formula for estimated nutritional needs 30-35Kcals/kg, Energy needs 2183-2806 Kcal. KCAL increase needs for chronic illness refeeding risk needs (15-20 kcal/kg) = 885 1190. Estimated protein needs: Estimated protein range 1.5-2.0 grams/kg; Estimated protein needs 88-119 grams/day. Cancer and cachexia. Estimated fluid formula 1ml/Kcal Estimated Fluid 7466-8974 mls/day. Nutritional Diagnosis Severe malnutrition in the context of chronic illness. Inadequate protein energy intake with increased needs >5% weight loss x 1 month, <50% EER >5 Days, moderate fat wasting. Treatment: 4/5 PICC Line for TPN, Monitor PO intake, Monitor TPN infusion Supplements: Parenteral Nutrition Please clarify which diagnosis is most appropriate: [ ] Severe protein calorie malnutrition [x ] Moderate protein calorie malnutrition [ ] Other (please specify) [ ] Unable to determine In responding to this query, please exercise your independent professional judgment. The [facility] Coding Staff and Clinical Documentation Specialists appreciate your assistance in clarifying documentation, maintaining compliance with coding guidelines, accurately documenting patients condition and capturing severity of illness. The fact that a question is asked does not imply that any particular answer is desired or expected. Communication forms are a method of clarifying documentation and are made part of the Legal Health Record. Thank you in advance for your clarification. Last Reviewed October 2022 Reference: Using the ASPEN Guidelines, Undernutrition (Malnutrition) is characterized by at least two of the following six findings. The severity can be determined based on the criteria listed below. Malnutrition Characteristics for Moderate and Severe Malnutrition Type of Malnutrition Acute Illness or Injury Chronic Illness Degree of Malnutrition Non-severe (moderate) Malnutrition Severe Malnutrition Non-severe (moderate) Malnutrition Severe Malnutrition Energy Intake <75% for >7 days = 50% for = 5 days <75% for = 1 month =75% for = 1 month Weight Loss 1-2% in one week, 5% in 1 month, 7.5% in 3 months 2% in one week, >5% in 1 month, >7.5% in 3 months 5% in one month, 7.5% in 3 months, 10% in 6 months, 20% in 1 year >5% in one month, >7.5% in 3 months, >10% in 6 months, >20% in 1 year Body Fat Wasting Mild Moderate Mild Severe Muscle Wasting Mild Moderate Mild Severe Presence of Edema Mild Moderate to Severe Mild Severe Bill Poster Installer Strength Not applicable Measurably Reduced Not applicable Measurably Reduced Source: Kirt FeltonV, Kenny P, Mason G, et al. Consensus statement: Academy of Nutrition and Dietetics and [place] Society for Parenteral and Enteral Nutrition: characteristics recommended for the identification and documentation of adult malnutrition (undernutrition).LUCI J Parenter Enteral Nutr. 2012;36(3):275-283. (Template Last Revised: June 2020) MTDD
--- NOTE | 2023-08-01 15:27 | P.PN ---
Subjective Progress Note Date: 08/01/23 CHIEF COMPLAINT: Colon obstruction HISTORY OF PRESENT ILLNESS: Patient is postop day #10 status post sigmoid colectomy, takedown splenic flexure, reversal of transverse colostomy, reversal of mucous fistula, appendectomy, lysis of adhesions and omentectomy. Patient reports his pain is controlled. He is having flatus. No bowel movement. Afebrile. He has been up and ambulating. WBC is down from 12-11.5 hemoglobin 9.4 sodium is 133 potassium 4.1 PHYSICAL EXAM: VITAL SIGNS: Reviewed. GENERAL: Well-developed in no acute distress. ABDOMEN: Soft. Nondistended. mild tenderness at incision site. Incision clean dry and intact NEUROLOGIC: Alert and oriented. Cranial nerves II through XII grossly intact. ASSESSMENT: 1. History of colonic obstruction PLAN: -Advance diet to clear liquids -Patient can shower -Encourage patient to ambulate -Continue pain management -Encourage patient to use incentive spirometer -DVT prophylaxis subcu heparin Physician Afterschool Babysitter note has been reviewed by physician. Signing provider agrees with the documented findings, assessment, and plan of care. Objective - Vital Signs Vital signs: Vital Signs Temp 98.3 F 08/01/23 13:49 Pulse 68 08/01/23 13:49 Resp 18 08/01/23 13:49 BP 131/77 08/01/23 13:49 Pulse Ox 98 08/01/23 13:49 FiO2 Intake & Output 07/31/23 08/01/23 08/01/23 18:59 06:59 18:59 Intake Total 6294.219 9706 Output Total 19990 Balance -085.607 2417 - Weight 59.5 kg Intake: Intake, IV Titration 1079.390 2786 Amount D5-0.45% NaCl with KCl 990 20Meq/l 1,000 ml @ 125 mls/hr IV .Q8H [facility] Rx#: [id number] Mvi, Adult No.4 with Vit 550 K 10 ml Trace (Conc-1Ml/ Dose) 1 ml In Amino Acid 5%-D20w+Lytes*E* 1,000 ml @ 55 mls/hr IV .[id number] [facility] Rx#:[id number] Mvi, Adult No.4 with Vit 1048.667 K 10 ml Trace (Conc-1Ml/ Dose) 1 ml Sodium Acetate 30 meq Potassium Chloride 20 meq Calcium Gluconate 1 gm Magnesium Sulfate gm 1.5 gm In Amino Acids 5 %/Dextrose 20 % 1,000 ml @ 55 mls/hr IV .Q19H5M [facility] Rx#: [id number] Oral 480 Output: Urine 2000 890 Other: Voiding Method Toilet Toilet Toilet Urinal Urinal Urinal - Labs CBC & Chem 7: 08/01/23 06:25 08/01/23 06:25 Labs: Abnormal Lab Results - Last 24 Hours (Table) 08/01/23 08/01/23 Range/Units 06:25 06:25 WBC 11.58 H (4.50-10.00) X 10*3/uL RBC 2.98 L (4.40-5.60) X 10*6/uL Hgb 9.4 L (13.0-17.0) g/dL Hct 28.0 L (39.6-50.0) % Plt Count 489 H (140-440) X 10*3/uL MPV 8.9 L (9.5-12.2) FL Immature Gran # 0.05 H (0.00-0.04) X 10*3/uL Neutrophils # 8.86 H (1.80-7.70) X 10*3/uL Sodium 133 L (137-145) mmol/L Creatinine 0.47 L (0.66-1.25) mg/dL Glucose 162 H (74-99) mg/dL AST 16 L (17-59) U/L Total Protein 5.4 L (6.3-8.2) g/dL Albumin 2.5 L (3.5-5.0) g/dL
[2023-08-02] MEDS: 1: AMINO ACID 5%-D20W+LYTES*E* 1,000 ML 2: MVI, ADULT NO.4 WITH VIT K 10 ML, TRACE (CON IV SCH (00:19)
[2023-08-02 07:43] LABS: African American GFR (CKD) >90 (>60 ml/min/1.73 sqM); Anion Gap 5 mmol/L; Blood Urea Nitrogen 13 mg/dL (9-20); Calcium 8.8 mg/dL (8.4-10.2); Carbon Dioxide 25 mmol/L (22-30); Chloride 104 mmol/L (98-107); Glucose 141 mg/dL (74-99); Non-African American GFR(CKD) >90 (>60 ml/min/1.73 sqM); Phosphorus 4.2 mg/dL (2.5-4.5); Potassium 4.2 mmol/L (3.5-5.1); Sodium 134 mmol/L (137-145)
[2023-08-02 10:47] LABS: Basophils # (A) 0.06 X 10*3/uL (0.00-0.10); Basophils % (A) 0.6 %; Eosinophils # (A) 0.47 X 10*3/uL (0.04-0.35); Eosinophils % (A) 4.8 %; HGB 9.6 g/dL (13.0-17.0); Lymphocytes # (A) 1.56 X 10*3/uL (0.90-5.00); Lymphocytes % (A) 15.8 %; MCHC 33.1 g/dL (32.0-37.0); MCV 93.5 FL (80.0-97.0); Mean Platelet Volume 8.9 FL (9.5-12.2); Monocytes # (A) 0.85 X 10*3/uL (0.20-1.00); Monocytes % (A) 8.6 %; NRBC Per 100 WBC 0 X 10*3/uL (0.00-0.01); Neutrophils # (A) 6.88 X 10*3/uL (1.80-7.70); Neutrophils % (A) 69.9 %; Platelet Count 559 X 10*3/uL (140-440); RDW 12.6 % (11.5-14.5); WBC 9.85 X 10*3/uL (4.50-10.00)
--- NOTE | 2023-08-02 12:40 | P.PN ---
Subjective Progress Note Date: 08/02/23 CHIEF COMPLAINT: Colon obstruction HISTORY OF PRESENT ILLNESS: Patient is postop day #11 status post sigmoid colectomy, takedown splenic flexure, reversal of transverse colostomy, reversal of mucous fistula, appendectomy, lysis of adhesions and omentectomy. Patient's pain is controlled. He is having flatus. He tolerated the liquids. Afebrile. WBC has normalized from 11.58-9.85 Hgb 9.6 platelets 559 sodium is 134 potassium 4.2 creatinine 0.50 PHYSICAL EXAM: VITAL SIGNS: Reviewed. GENERAL: Well-developed in no acute distress. ABDOMEN: Soft. Nondistended. mild tenderness at incision site. Incision clean dry and intact NEUROLOGIC: Alert and oriented. Cranial nerves II through XII grossly intact. ASSESSMENT: 1. History of colonic obstruction PLAN: -Advance diet to regular -[place] added for oral pain medication -Encourage patient ambulate -If tolerating regular diet will wean off of TPN -Anticipate possible discharge tomorrow -DVT prophylaxis subcu heparin Physician Electrical Prospector note has been reviewed by physician. Signing provider agrees with the documented findings, assessment, and plan of care. Objective - Vital Signs Vital signs: Vital Signs Temp 97.5 F L 08/02/23 07:28 Pulse 73 08/02/23 07:28 Resp 18 08/02/23 07:28 BP 145/81 08/02/23 07:28 Pulse Ox 98 08/02/23 07:28 FiO2 Intake & Output 08/01/23 08/02/23 08/02/23 18:59 06:59 18:59 Output Total 1090 950 300 Balance -1090 -950 -300 Weight 59.5 kg Output: Urine 1090 950 300 Other: Voiding Method Toilet Toilet Urinal Urinal # Voids 1 - Labs CBC & Chem 7: 08/02/23 06:38 08/02/23 06:38 Labs: Abnormal Lab Results - Last 24 Hours (Table) 08/02/23 08/02/23 Range/Units 06:38 06:38 RBC 3.10 L (4.40-5.60) X 10*6/uL Hgb 9.6 L (13.0-17.0) g/dL Hct 29.0 L (39.6-50.0) % Plt Count 559 H (140-440) X 10*3/uL MPV 8.9 L (9.5-12.2) FL Eosinophils # 0.47 H (0.04-0.35) X 10*3/uL Sodium 134 L (137-145) mmol/L Creatinine 0.50 L (0.66-1.25) mg/dL Glucose 141 H (74-99) mg/dL
--- NOTE | 2023-08-02 16:31 | P.PN ---
Subjective 62-year-old male with no significant past medical history who presented to the hospital on 06/04/2023 with a 2-week history of constipation, nausea, and vomiting. Patient has been to different ERs over the last several weeks and was diagnosed with constipatiom initially he was given enemas without much improvement. He then went to [facility] and had a CT done which he was told showed fecal impaction and he was sent home with enema. Upon arrival to ED on 06/04/2023, he was tachycardic and hypertensive. 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 He was admitted for bowel obstruction due to large sigmoid mass; patient underwent a decompressive colostomy on 06/04/23 -Patient is admitted to the hospital for sigmoid colectomy, takedown of splenic flexure, reversal of transverse colostomy and traverse of mucous fistula with appendectomy and lysis of adhesions and omentectomy; patient is POD #1 07/24/2023 And is seen and evaluated sitting up in the bedside chair; NG tube has been removed; patient is n.p.o. with ice chips Vital signs reviewed and stable with temperature of 98.6, pulse 101, respiration 19 and blood pressure of 122/88 Lab review shows a WBC of 12.1 which is trended down from 13.2 yesterday, hemoglobin of 11.6 and platelet count of 343, sodium 132, potassium 4.3, BUNs/creatinine of 10/0.61 and blood glucose of 141 --Patient is status post reversal colostomy and sigmoid resection; general surgery on board and recommending to continue with keeping patient n.p.o. for now 07/25/2023 Patient is awake alert and oriented He is calm in bed. He still n.p.o. but there is no NG tube in place He has a vertical surgical abdominal wound with dressing in place, wound VAC in place as well Patient denies chest pain or dyspnea. He is mildly tachycardic, afebrile blood pressure is acceptable He has mild leukocytosis of 12,000, hemoglobin 11.6 He is on D5 half-normal saline at 125 mL/h 07/26/2023 Patient awake noting distress Patient is getting ice chips only, still n.p.o. No bowel movement yet Abdominal pain is controlled He remains on gentle hydration with D5 half-normal saline at 125 mL/h 07/27/2023 patient sitting in chair but does not look in distress. His abdominal pain controlled Staffing patient has little bowel movement but patient does not believe so. No vomiting Hemodynamically stable Continue with Reglan and gentle hydration with half normal saline 07/28/2023 This morning patient still n.p.o. He still has no bowel movement yet His abdomen looks soft with no significant tenderness Is still on IV fluids I am resuming the care of the patient 08/01/2028 Patient awake and alert He still has no bowel movement but there is liquid diet, abdomen is soft and to be advanced to regular diet by surgery team TPN may be considered as well His leukocytosis back to reference range Objective - Vital Signs Vital signs: Vital Signs Temp 98 F 08/02/23 02:00 Pulse 71 08/02/23 02:00 Resp 16 08/02/23 02:00 BP 116/76 08/02/23 02:00 Pulse Ox 97 08/02/23 02:00 FiO2 Intake & Output 08/01/23 08/02/23 08/02/23 18:59 06:59 18:59 Output Total 1090 950 Balance -1090 -950 Weight 59.5 kg Output: Urine 1090 950 Other: Voiding Method Toilet Toilet Urinal Urinal # Voids 1 - Exam GENERAL: The patient is alert and oriented x3, not in any acute distress. Well developed, well nourished. HEENT: Pupils are round and equally reacting to light. EOMI. No scleral icterus. No conjunctival pallor. Normocephalic, atraumatic. No pharyngeal erythema. No thyromegaly. CARDIOVASCULAR: S1 and S2 present. No murmurs, rubs, or gallops. PULMONARY: Chest is clear to auscultation, no wheezing , no crackles. -ABDOMEN: Soft, nontender, nondistended, normoactive bowel sounds. No palpable organomegaly. vertical surgical abdominal wound with dressing in place, wound VAC in place MUSCULOSKELETAL: No joint swelling or deformity. EXTREMITIES: No cyanosis, clubbing, or pedal edema. NEUROLOGICAL: Gross neurological examination did not reveal any focal deficits. SKIN: No rashes. no petechiae. - Labs CBC & Chem 7: 08/02/23 06:38 08/02/23 06:38 Labs: Abnormal Lab Results - Last 24 Hours (Table) 08/02/23 Range/Units 06:38 Sodium 134 L (137-145) mmol/L Creatinine 0.50 L (0.66-1.25) mg/dL Glucose 141 H (74-99) mg/dL Assessment and Plan Assessment: 1. Colon obstruction/mass; patient is status post sigmoid colectomy with takedown of splenic flexure, reversal of transverse colostomy, appendectomy, lysis of adhesion and omentectomy --Advance diet as tolerated per surgery team --Surgery team on the case 2. Hypertension; patient takes Norvasc 5 mg daily; blood pressure is currently stable; remains off of antihypertensive therapy 3. Osteoarthritis; patient takes [place] at home which has been placed on hold DVT prophylaxis; SCDs/subcu heparin CODE STATUS; full code
[2023-08-02] MEDS: HYDROcodone/APAP 5-325MG 1 EACH TAB PO PRN (20:27)
[2023-08-03 06:49] LABS: African American GFR (CKD) >90 (>60 ml/min/1.73 sqM); Anion Gap 6 mmol/L; Blood Urea Nitrogen 15 mg/dL (9-20); Calcium 9.4 mg/dL (8.4-10.2); Carbon Dioxide 24 mmol/L (22-30); Chloride 105 mmol/L (98-107); Glucose 103 mg/dL (74-99); Non-African American GFR(CKD) >90 (>60 ml/min/1.73 sqM); Phosphorus 4.5 mg/dL (2.5-4.5); Potassium 4.2 mmol/L (3.5-5.1); Sodium 135 mmol/L (137-145)
--- NOTE | 2023-08-03 14:05 | P.PN ---
Subjective 62-year-old male with no significant past medical history who presented to the hospital on 06/04/2023 with a 2-week history of constipation, nausea, and vomiting. Patient has been to different ERs over the last several weeks and was diagnosed with constipatiom initially he was given enemas without much improvement. He then went to [facility] and had a CT done which he was told showed fecal impaction and he was sent home with enema. Upon arrival to ED on 06/04/2023, he was tachycardic and hypertensive. 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 He was admitted for bowel obstruction due to large sigmoid mass; patient underwent a decompressive colostomy on 06/04/23 -Patient is admitted to the hospital for sigmoid colectomy, takedown of splenic flexure, reversal of transverse colostomy and traverse of mucous fistula with appendectomy and lysis of adhesions and omentectomy; patient is POD #1 07/24/2023 And is seen and evaluated sitting up in the bedside chair; NG tube has been removed; patient is n.p.o. with ice chips Vital signs reviewed and stable with temperature of 98.6, pulse 101, respiration 19 and blood pressure of 122/88 Lab review shows a WBC of 12.1 which is trended down from 13.2 yesterday, hemoglobin of 11.6 and platelet count of 343, sodium 132, potassium 4.3, BUNs/creatinine of 10/0.61 and blood glucose of 141 --Patient is status post reversal colostomy and sigmoid resection; general surgery on board and recommending to continue with keeping patient n.p.o. for now 07/25/2023 Patient is awake alert and oriented He is calm in bed. He still n.p.o. but there is no NG tube in place He has a vertical surgical abdominal wound with dressing in place, wound VAC in place as well Patient denies chest pain or dyspnea. He is mildly tachycardic, afebrile blood pressure is acceptable He has mild leukocytosis of 12,000, hemoglobin 11.6 He is on D5 half-normal saline at 125 mL/h 07/26/2023 Patient awake noting distress Patient is getting ice chips only, still n.p.o. No bowel movement yet Abdominal pain is controlled He remains on gentle hydration with D5 half-normal saline at 125 mL/h 07/27/2023 patient sitting in chair but does not look in distress. His abdominal pain controlled Staffing patient has little bowel movement but patient does not believe so. No vomiting Hemodynamically stable Continue with Reglan and gentle hydration with half normal saline 07/28/2023 This morning patient still n.p.o. He still has no bowel movement yet His abdomen looks soft with no significant tenderness Is still on IV fluids I am resuming the care of the patient 08/01/2028 Patient awake and alert He still has no bowel movement but there is liquid diet, abdomen is soft and to be advanced to regular diet by surgery team TPN may be considered as well His leukocytosis back to reference range 08/03/2023 Patient states that he is tolerating regular diet well with no nausea or vomiting He states that his abdominal pain is controlled Patient has 2 small bowel movement yesterday Patient was seen walking in the hallway comfortable with no difficulties. He denies any other complaints Patient expected to be discharged soon per primary surgery team. As such patient was instructed to follow-up with his PCP in 1 week after discharge and he is agreeable Objective - Vital Signs Vital signs: Vital Signs Temp 98.1 F 08/03/23 07:45 Pulse 82 08/03/23 07:45 Resp 16 08/03/23 13:09 BP 118/75 08/03/23 07:45 Pulse Ox 97 08/03/23 07:45 FiO2 Intake & Output 08/02/23 08/03/23 08/03/23 18:59 06:59 18:59 Intake Total 950 480 Output Total 300 350 Balance -300 600 480 Intake: Oral 950 480 Output: Urine 300 350 Other: Voiding Method Toilet Toilet Toilet Urinal Urinal Urinal # Voids 1 # Bowel Movements 1 - Exam GENERAL: The patient is alert and oriented x3, not in any acute distress. Well developed, well nourished. HEENT: Pupils are round and equally reacting to light. EOMI. No scleral icterus. No conjunctival pallor. Normocephalic, atraumatic. No pharyngeal erythema. No thyromegaly. CARDIOVASCULAR: S1 and S2 present. No murmurs, rubs, or gallops. PULMONARY: Chest is clear to auscultation, no wheezing , no crackles. -ABDOMEN: Soft, nontender, nondistended, normoactive bowel sounds. No palpable organomegaly. vertical surgical abdominal wound with dressing in place, wound VAC in place MUSCULOSKELETAL: No joint swelling or deformity. EXTREMITIES: No cyanosis, clubbing, or pedal edema. NEUROLOGICAL: Gross neurological examination did not reveal any focal deficits. SKIN: No rashes. no petechiae. - Labs CBC & Chem 7: 08/02/23 06:38 08/03/23 05:53 Labs: Abnormal Lab Results - Last 24 Hours (Table) 08/03/23 Range/Units 05:53 Sodium 135 L (137-145) mmol/L Creatinine 0.56 L (0.66-1.25) mg/dL Glucose 103 H (74-99) mg/dL Assessment and Plan Assessment: 1. Colon obstruction/mass; patient is status post sigmoid colectomy with takedown of splenic flexure, reversal of transverse colostomy, appendectomy, lysis of adhesion and omentectomy --Advance diet as tolerated per surgery team. Patient tolerates diet well. Patient says he has small bowel movement. He is walking with no difficulty --Surgery team on the case 2. Hypertension; patient takes Norvasc 5 mg daily; blood pressure is currently stable; remains off of antihypertensive therapy 3. Osteoarthritis; patient takes [place] at home which has been placed on hold DVT prophylaxis; SCDs/subcu heparin CODE STATUS; full code Patient is medically stable
--- NOTE | 2023-08-03 15:28 | P.PN ---
Subjective Progress Note Date: 08/03/23 CHIEF COMPLAINT: Colon obstruction HISTORY OF PRESENT ILLNESS: Patient is postop day #12 status post sigmoid colectomy, takedown splenic flexure, reversal of transverse colostomy, reversal of mucous fistula, appendectomy, lysis of adhesions and omentectomy. Patient's pain is controlled. He is tolerating diet. He is having bowel movements and flatus. No nausea or vomiting. TPN has been weaned off. Afebrile. PHYSICAL EXAM: VITAL SIGNS: Reviewed. GENERAL: Well-developed in no acute distress. ABDOMEN: Soft. Nondistended. mild tenderness at incision site. Incision clean dry and intact NEUROLOGIC: Alert and oriented. Cranial nerves II through XII grossly intact. ASSESSMENT: 1. 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 Signing provider agrees with the documented findings, assessment, and plan of care. Objective - Vital Signs Vital signs: Vital Signs Temp 98.1 F 08/03/23 07:45 Pulse 82 08/03/23 07:45 Resp 16 08/03/23 13:09 BP 118/75 08/03/23 07:45 Pulse Ox 97 08/03/23 07:45 FiO2 Intake & Output 08/02/23 08/03/23 08/03/23 18:59 06:59 18:59 Intake Total 950 480 Output Total 300 350 Balance -300 600 480 Intake: Oral 950 480 Output: Urine 300 350 Other: Voiding Method Toilet Toilet Toilet Urinal Urinal Urinal # Voids 1 # Bowel Movements 1 - Labs CBC & Chem 7: 08/02/23 06:38 08/03/23 05:53 Labs: Abnormal Lab Results - Last 24 Hours (Table) 08/03/23 Range/Units 05:53 Sodium 135 L (137-145) mmol/L Creatinine 0.56 L (0.66-1.25) mg/dL Glucose 103 H (74-99) mg/dL
--- NOTE | 2023-08-04 11:38 | P.DS ---
Providers Date of admission: 07/22/23 06:59 Expected date of discharge: 08/04/23 Attending physician: Blayne Noe Consults: 07/22/23 11:50 Consult Physician Routine Consulting Provider: Andrez Bates Consult Reason/Comments: medical management Do you want consulting provider notified?: Yes Primary care physician: Stated None Hospital Course: Discharge diagnosis 1. History of diverticulitis and colonic obstruction Hospital course This is a 62-year-old male with a known history of diverticulitis and colonic obstruction. He is status post sigmoid colectomy, takedown splenic flexure, reversal of transverse colostomy, reversal of mucous fistula, appendectomy, lysis of adhesions and omentectomy. Patient did tolerate surgery well. His pain is controlled. He is having bowel movements. He is tolerating diet. He has been up and ambulating. He is afebrile. He is stable for discharge. Please refer to chart for any further details. Physician Project Mgr note has been reviewed by physician. Signing provider agrees with the documented findings, assessment, and plan of care. Patient Condition at Discharge: Stable Plan - Discharge Summary Discharge Rx Participant: Yes New Discharge Prescriptions: New HYDROcodone/APAP 5-325MG [[place] 5-325] 1 tab PO Q6HR PRN 3 Days #12 tab PRN Reason: Pain No Action amLODIPine [Norvasc] 5 mg PO DAILY #30 tab Acetaminophen Tab [Tylenol] 325 mg PO DIRECTED PRN PRN Reason: Pain HYDROcodone/APAP 10-325MG [[place] 10-325] 1 tab PO Q4HR PRN 3 Days #18 tab PRN Reason: Pain Discharge Medication List amLODIPine [Norvasc] 5 mg PO DAILY #30 tab 06/14/23 [Rx] HYDROcodone/APAP 10-325MG [[place] 10-325] 1 tab PO Q4HR PRN 3 Days #18 tab 06/20/23 [Rx] Acetaminophen Tab [Tylenol] 325 mg PO DIRECTED PRN 07/15/23 [History] HYDROcodone/APAP 5-325MG [[place] 5-325] 1 tab PO Q6HR PRN 3 Days #12 tab 08/04/23 [Rx] Follow up Appointment(s)/Referral(s): Blayne Noe MD [STAFF PHYSICIAN] - 1 Week Activity/Diet/Wound Care/Special Instructions: Patient requires a walker to help with unsteady gait due to history of osteoarthritis. No driving while taking [place] No lifting over 10 pounds Shower daily. No soaking or tub baths for 2 weeks Very light activity until you are reevaluated at your follow up appointment with your surgeon Discharge Disposition: HOME SELF-CARE
[2023-08-04 14:21] VITALS: BP 103/66; PULSE 81; RESP 17; TEMP 98
--- NOTE | 2023-08-05 06:02 | P.PN ---
Subjective 62-year-old male with no significant past medical history who presented to the hospital on 06/04/2023 with a 2-week history of constipation, nausea, and vomiting. Patient has been to different ERs over the last several weeks and was diagnosed with constipatiom initially he was given enemas without much improvement. He then went to [facility] and had a CT done which he was told showed fecal impaction and he was sent home with enema. Upon arrival to ED on 06/04/2023, he was tachycardic and hypertensive. 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 He was admitted for bowel obstruction due to large sigmoid mass; patient underwent a decompressive colostomy on 06/04/23 -Patient is admitted to the hospital for sigmoid colectomy, takedown of splenic flexure, reversal of transverse colostomy and traverse of mucous fistula with appendectomy and lysis of adhesions and omentectomy; patient is POD #1 07/24/2023 And is seen and evaluated sitting up in the bedside chair; NG tube has been removed; patient is n.p.o. with ice chips Vital signs reviewed and stable with temperature of 98.6, pulse 101, respiration 19 and blood pressure of 122/88 Lab review shows a WBC of 12.1 which is trended down from 13.2 yesterday, hemoglobin of 11.6 and platelet count of 343, sodium 132, potassium 4.3, BUNs/creatinine of 10/0.61 and blood glucose of 141 --Patient is status post reversal colostomy and sigmoid resection; general surgery on board and recommending to continue with keeping patient n.p.o. for now 07/25/2023 Patient is awake alert and oriented He is calm in bed. He still n.p.o. but there is no NG tube in place He has a vertical surgical abdominal wound with dressing in place, wound VAC in place as well Patient denies chest pain or dyspnea. He is mildly tachycardic, afebrile blood pressure is acceptable He has mild leukocytosis of 12,000, hemoglobin 11.6 He is on D5 half-normal saline at 125 mL/h 07/26/2023 Patient awake noting distress Patient is getting ice chips only, still n.p.o. No bowel movement yet Abdominal pain is controlled He remains on gentle hydration with D5 half-normal saline at 125 mL/h 07/27/2023 patient sitting in chair but does not look in distress. His abdominal pain controlled Staffing patient has little bowel movement but patient does not believe so. No vomiting Hemodynamically stable Continue with Reglan and gentle hydration with half normal saline 07/28/2023 This morning patient still n.p.o. He still has no bowel movement yet His abdomen looks soft with no significant tenderness Is still on IV fluids I am resuming the care of the patient 08/01/2028 Patient awake and alert He still has no bowel movement but there is liquid diet, abdomen is soft and to be advanced to regular diet by surgery team TPN may be considered as well His leukocytosis back to reference range 08/03/2023 Patient states that he is tolerating regular diet well with no nausea or vomiting He states that his abdominal pain is controlled Patient has 2 small bowel movement yesterday Patient was seen walking in the hallway comfortable with no difficulties. He denies any other complaints Patient expected to be discharged soon per primary surgery team. As such patient was instructed to follow-up with his PCP in 1 week after discharge and he is agreeable 08/04/2023 Patient seen today walking in the hallway freely and comfortably with no diffi culty. He states his abdominal pain is mild. He states he tolerates diet well. 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 Patient denies any other symptoms. Hemodynamically stable. Labs and images reviewed. Patient is medically stable. Patient was instructed to follow-up with PCP in 1 week after discharge and he is agreeable Objective - Vital Signs Vital signs: Vital Signs Temp 98.2 F 08/04/23 06:50 Pulse 79 08/04/23 06:50 Resp 16 08/04/23 06:50 BP 121/74 08/04/23 06:50 Pulse Ox 97 08/04/23 06:50 FiO2 Intake & Output 08/03/23 08/04/23 08/04/23 18:59 06:59 18:59 Intake Total 480 850 Output Total 200 Balance 480 850 -200 Weight 59.5 kg Intake: Oral 480 850 Output: Urine 200 Other: Voiding Method Toilet Toilet Urinal Urinal # Voids 3 - Exam GENERAL: The patient is alert and oriented x3, not in any acute distress. Well developed, well nourished. HEENT: Pupils are round and equally reacting to light. EOMI. No scleral icterus. No conjunctival pallor. Normocephalic, atraumatic. No pharyngeal erythema. No thyromegaly. CARDIOVASCULAR: S1 and S2 present. No murmurs, rubs, or gallops. PULMONARY: Chest is clear to auscultation, no wheezing , no crackles. -ABDOMEN: Soft, nontender, nondistended, normoactive bowel sounds. No palpable organomegaly. vertical surgical abdominal wound with dressing in place, wound VAC in place MUSCULOSKELETAL: No joint swelling or deformity. EXTREMITIES: No cyanosis, clubbing, or pedal edema. NEUROLOGICAL: Gross neurological examination did not reveal any focal deficits. SKIN: No rashes. no petechiae. - Labs CBC & Chem 7: 08/02/23 06:38 08/03/23 05:53 Assessment and Plan Assessment: 1. Colon obstruction/mass; patient is status post sigmoid colectomy with takedown of splenic flexure, reversal of transverse colostomy, appendectomy, lysis of adhesion and omentectomy --Advance diet as tolerated per surgery team. Patient tolerates diet well. Patient says he has small bowel movement. He is walking with no difficulty --Surgery team on the case 2. Hypertension; patient takes Norvasc 5 mg daily; blood pressure is currently stable; remains off of antihypertensive therapy 3. Osteoarthritis; patient takes [place] at home which has been placed on hold DVT prophylaxis; SCDs/subcu heparin CODE STATUS; full code Patient is medically stable
== END 2023-08-04 16:13 | disposition home or self-care (01) | DRG 231 ==
LOC: 2ORMAIN 06:59 → 4SSUR 12:45
PROVIDERS: ADMIT Surgery; ATTEND Surgery
PROC: 0DBU0ZZ Excision of Omentum, Open Approach (ICD-10-PCS; 2023-07-22)
PROC: 0D1L0Z4 Bypass Transverse Colon to Cutaneous, Open Approach (ICD-10-PCS; 2023-07-22)
PROC: 0DTJ0ZZ Resection of Appendix, Open Approach (ICD-10-PCS; 2023-07-22)
PROC: 0DNW0ZZ Release Peritoneum, Open Approach (ICD-10-PCS; 2023-07-22)
PROC: 0DTN0ZZ Resection of Sigmoid Colon, Open Approach (ICD-10-PCS; principal; 2023-07-22 08:40)
PROC: 3E0336Z Introduction of Nutritional Substance into Peripheral Vein, Percutaneous Approach (ICD-10-PCS; 2023-07-29)
PROC: 02HV33Z Insertion of Infusion Device into Superior Vena Cava, Percutaneous Approach (ICD-10-PCS; 2023-07-29)
PROC: B5181ZA Fluoroscopy of Superior Vena Cava using Low Osmolar Contrast, Guidance (ICD-10-PCS; 2023-07-29)
PROC: B548ZZA Ultrasonography of Superior Vena Cava, Guidance (ICD-10-PCS; 2023-07-29)
PROC: 05HB33Z Insertion of Infusion Device into Right Basilic Vein, Percutaneous Approach (ICD-10-PCS; 2023-07-29)
DX: Z43.3 Encounter for attention to colostomy (principal); C18.7 Malignant neoplasm of sigmoid colon; M19.90 Unspecified osteoarthritis, unspecified site; K63.2 Fistula of intestine; I10 Essential (primary) hypertension; Z79.899 Other long term (current) drug therapy; R00.0 Tachycardia, unspecified; E44.0 Moderate protein-calorie malnutrition; Z68.22 Body mass index [BMI] 22.0-22.9, adult
CPT/HCPCS: 36573; 80048; 80053; 82330; 83735; 84100; 84478; 85025; 85027; 88304; 88305; 88309